=== PATIENT | female | born 1930 | race Caucasian/White ===

== ENCOUNTER 2016-07-21 14:37 | Outpatient (CLI) | payer MEDICARE, OTHER | END 2016-07-21 14:38 | disposition home or self-care (01) | DX: I65.22 Occlusion and stenosis of left carotid artery (principal) ==

== ENCOUNTER 2017-08-23 20:33 | Outpatient (CLI) | payer MEDICARE, OTHER ==
[2017-08-23 19:44] LABS: ALBUMIN 3.9 g/dL (3.2-5.5); ALBUMIN/GLOBULIN RATIO 1.1 (1.0-2.2); ALKALINE PHOSPHATASE 75 IU/L (42-121); ALT ALANINE AMINOTRANSFERASE 27 IU/L (10-60); AST ASPARTATE AMINOTRANSFERASE 34 IU/L (10-42); BILIRUBIN,TOTAL 0.5 mg/dL (0.2-1.0); BUN - BLOOD UREA NITROGEN 19 mg/dL (6-20); CARBON DIOXIDE - CO2 29 mmol/L (21-32); CHLORIDE 101 mmol/L (101-111); CHOL/HDL RATIO 2.3 (<4.4); CHOLESTEROL 97 mg/dL; CREATININE 0.8 mg/dL (0.4-1.0); GFR - MDRD 68 (>89); GLUCOSE 105 mg/dL (70-100); HDL CHOLESTEROL 42 mg/dL; LDL CHOLESTEROL,CALCULATED 41 mg/dL; SODIUM 138 mmol/L (135-145); TOTAL PROTEIN 7.4 g/dL (6.7-8.2); VLDL CHOLESTEROL 14 mg/dL
== END 2017-08-23 20:34 | disposition home or self-care (01) ==
LOC: LAB.WCP 20:33
PROVIDERS: ATTEND Family Medicine
DX: I10 Essential (primary) hypertension (principal); E78.5 Hyperlipidemia, unspecified; E03.9 Hypothyroidism, unspecified
CPT/HCPCS: 36415; 80053; 80061; 83721; 84443

== ENCOUNTER 2017-08-31 15:49 | Outpatient (CLI) | payer MEDICARE, OTHER | END 2017-08-31 15:50 | disposition critical access hospital (66) | LOC: EMS 15:49 | PROVIDERS: ATTEND Surgery | DX: R06.02 Shortness of breath (principal) | CPT/HCPCS: A0425; A0427 ==

== ENCOUNTER 2017-08-31 16:12 | Inpatient (IN) | payer MEDICARE, OTHER ==
--- NOTE | 2017-08-31 16:16 | ED Physician Documentation ---
History of Present Illness - Stated complaint Stated Complaint: AFIB - History obtained from History obtained from: Patient, Family, EMS - History of Present Illness Timing: How many weeks ago (2) - Additonal information Additional information: 87-year-old female has had some shortness of breath for about the past 2 weeks this is much worse today and she came in to see her doctor before going out to the [facility]. Her doctor found her to be in atrial fibrillation with rapid ventricular response and sent her to the hospital for evaluation. Review of Systems Constitutional: denies: Fever Eyes: denies: Decreased vision Ears: denies: Ear pain Nose: denies: Congestion Throat: denies: Sore throat Cardiac: reports: Palpitations. denies: Chest pain / pressure Respiratory: reports: Dyspnea, Cough GI: denies: Abdominal Pain, Nausea, Vomiting : denies: Dysuria, Frequency Skin: denies: Rash Musculoskeletal: reports: Extremity swelling. denies: Neck pain, Back pain, Extremity pain Neurologic: denies: Generalized weakness, Focal weakness, Numbness PD PAST MEDICAL HISTORY - Present Medications Home Medications: Ambulatory Orders Medication Instructions Recorded Confirmed Enalapril [Vasotec] 5 mg PO BID 08/31/17 08/31/17 Furosemide 80 mg PO DAILY 08/31/17 08/31/17 Levothyroxine [Synthroid] 75 mcg PO QDAC 08/31/17 08/31/17 Metoprolol Tartrate 150 mg PO BID 08/31/17 08/31/17 Potassium Chloride 20 meq PO BID 08/31/17 08/31/17 Simvastatin [Simvastatin] 80 mg PO QPM 08/31/17 08/31/17 Warfarin Sodium 4 mg PO DAILY 08/31/17 08/31/17 diltiaZEM CD [Cardizem Cd] 180 mg PO DAILY 08/31/17 08/31/17 - Allergies Allergies/Adverse Reactions: Allergies Allergy/AdvReac Type Severity Reaction Status Date / Time Sulfa (Sulfonamide Allergy Edema Verified 08/31/17 16:23 Antibiotics) PD ED PE NORMAL - Vitals Vital signs reviewed: Yes (tachy ) - General General: Alert and oriented X 3, No acute distress, Well developed/nourished - HEENT HEENT: Atraumatic, PERRL, EOMI - Neck Neck: Supple, no meningeal sign, No bony TTP - Cardiac Cardiac: Other (irregularly irregular and tachy to 150) - Respiratory Respiratory: No respiratory distress, Other (rales at the bases bilaterally ) - Abdomen Abdomen: Soft, Non tender - Back Back: No CVA TTP, No spinal TTP - Derm Derm: Normal color, Warm and dry, No rash - Extremities Extremities: No deformity, Other (trace edema biaterally ) - Neuro Neuro: Alert and oriented X 3, thermometer tester 2-12 intact, No motor deficit, No sensory deficit, Normal speech Eye Opening: Spontaneous Motor: Obeys Commands Verbal: Oriented GCS Score: 15 - Psych Psych: Normal mood, Normal affect Results - Vitals Vitals: Vital Signs - 24 hr 08/31/17 08/31/17 08/31/17 16:15 16:30 16:56 Temperature 36 C L Heart Rate 145 H 133 H 109 H Respiratory 16 20 22 Rate Blood Pressure 128/78 127/111 H 99/60 O2 Saturation 94 93 91 L 08/31/17 08/31/17 08/31/17 17:00 17:30 17:45 Temperature Heart Rate 103 H 111 H 133 H Respiratory 23 23 Rate Blood Pressure 108/70 130/82 H 134/66 H O2 Saturation 94 94 Oxygen O2 Source Room air - EKG (time done) 1621 Rate: Rate (enter#) (149) QRS: Low voltage Other comments: Other comments (RVH) Compare to prior EKG: Old EKG unavailable Computer interpretation: Agree with computer - Labs Labs: Laboratory Tests 08/31/17 08/31/17 08/31/17 16:28 16:28 16:28 WBC 8.3 RBC 4.33 Hgb 12.8 Hct 40.5 MCV 93.5 MCH 29.6 MCHC 31.6 L RDW 15.3 H Plt Count 173 MPV 9.0 Neut # 6.3 Lymph # 1.3 L Richardson # 0.6 Eos # 0.1 Baso # 0.1 Absolute Nucleated RBC 0.00 Nucleated RBC % 0.0 PT 24.6 H INR 2.2 H Sodium 137 Potassium 4.5 Chloride 98 L Carbon Dioxide 25 Anion Gap 14.0 H BUN 18 Creatinine 0.7 Estimated GFR (MDRD) 79 L Glucose 96 Calcium 9.3 Total Bilirubin 0.8 AST 30 ALT 28 Alkaline Phosphatase 81 Troponin I B-Natriuretic Peptide Total Protein 7.3 Albumin 3.9 Globulin 3.4 Albumin/Globulin Ratio 1.1 Lipase 12 L Urine Color Urine Clarity Urine pH Ur Specific Leroy Urine Protein Urine Glucose (UA) Urine Ketones Urine Occult Blood Urine Nitrite Urine Bilirubin Urine Urobilinogen Ur Leukocyte Esterase Urine RBC Urine WBC Ur Epithelial Cells Ur Squamous Epith Cells Urine Bacteria Urine Mucus Ur Microscopic Review Urine Culture Comments 08/31/17 08/31/17 08/31/17 16:28 16:28 18:20 WBC RBC Hgb Hct MCV MCH MCHC RDW Plt Count MPV Neut # Lymph # Richardson # Eos # Baso # Absolute Nucleated RBC Nucleated RBC % PT INR Sodium Potassium Chloride Carbon Dioxide Anion Gap BUN Creatinine Estimated GFR (MDRD) Glucose Calcium Total Bilirubin AST ALT Alkaline Phosphatase Troponin I < 0.04 B-Natriuretic Peptide 202 H Total Protein Albumin Globulin Albumin/Globulin Ratio Lipase Urine Color YELLOW Urine Clarity HAZY Urine pH 6.0 Ur Specific Leroy 1.015 Urine Protein NEGATIVE Urine Glucose (UA) NEGATIVE Urine Ketones NEGATIVE Urine Occult Blood NEGATIVE Urine Nitrite NEGATIVE Urine Bilirubin NEGATIVE Urine Urobilinogen 0.2 (NORMAL) Ur Leukocyte Esterase SMALL H Urine RBC 0-5 Urine WBC 6-10 H Ur Epithelial Cells FEW Renal Tubular Ur Squamous Epith Cells MOD Squamous H Urine Bacteria Moderate H Urine Mucus Few Strands Ur Microscopic Review INDICATED Urine Culture Comments NOT INDICATED - Rads (name of study) 2 view chest Radiology: Prelim report reviewed (Impression: Large heart without CHF or acute pulmonary abnormality.), EMP read indepedently, See rad report Procedures - IVC sono (time) 1635 Bedside IVC sono: IVC measures (cm) (2.65), IVC collapsed c insp (cm) (2.19), Collapsibility index (0.173), High CVP, Fluid overload PD MEDICAL DECISION MAKING - ED course Complexity details: reviewed old records, reviewed results, re-evaluated patient , considered differential, d/w patient, d/w family ED course: 87-year-old female with a history of intermittent atrial fibrillation has developed atrial fibrillation with rapid ventricular response and this appears to been present for as long as 2 weeks. The patient has developed some exertional dyspnea and this is been worse over the last 2 weeks today on evaluation she has heart rate of 149 and she does appear to be in some mild failure on interrogation of the inferior vena cava. Here in the emergency department she is administered diltiazem 20 mg with reduction in her heart rate into the 90s this last a short period of time and she has her heart rate up in the 120 range again is given a second dose of 25 mg this improved her heart rate further but again this is short-lived. She is also administered 80 mg of Lasix intravenously. She has persistent afib with RVR and will need further treatment for rate control. Departure - Departure Disposition: [facility] DC/Xfer Clinical Impression: Atrial fibrillation with RVR Congestive heart failure Qualifiers: Congestive heart failure type: combined Congestive heart failure chronicity: acute on chronic Qualified Code(s): I50.43 - Acute on chronic combined systolic (congestive) and diastolic (congestive) heart failure Condition: Stable
[2017-08-31] MEDS ORDERED: diltiaZEM INJ 5 MG/ML VIAL IVP STA ×2 (16:37→17:39)
[2017-08-31 16:38] LABS: INR 2.2 (0.8-1.2); PT - PROTHROMBIN TIME 24.6 secs (9.9-12.6)
[2017-08-31 16:40] LABS: BASOPHILS # (AUTO) 0.1 10^3/uL (0.0-0.1); BASOPHILS % (AUTO) 0.6 %; EOSINOPHILS # (AUTO) 0.1 10^3/uL (0.0-0.7); EOSINOPHILS % (AUTO) 0.9 %; HGB - HEMOGLOBIN 12.8 g/dL (12.0-16.0); LYMPHOCYTES # (AUTO) 1.3 10^3/uL (1.5-3.5); LYMPHOCYTES % (AUTO) 15.4 %; MEAN CORPUSCULAR HEMOGLOBIN 29.6 pg (27.0-31.0); MEAN CORPUSCULAR HGB CONC 31.6 g/dL (32.0-36.0); MEAN CORPUSCULAR VOLUME 93.5 fL (81.0-99.0); MONOCYTES # (AUTO) 0.6 10^3/uL (0.0-1.0); MONOCYTES % (AUTO) 7.4 %; NEUTROPHILS # (AUTO) 6.3 10^3/uL (1.5-6.6); NEUTROPHILS % (AUTO) 75.7 %; PLT - PLATELET COUNT 173 10^3/uL (130-450); RED BLOOD COUNT 4.33 10^6/uL (4.20-5.40); RED CELL DISTRIBUTION WIDTH 15.3 % (12.0-15.0); WHITE BLOOD COUNT 8.3 x10^3/uL (4.8-10.8)
[2017-08-31] MEDS ORDERED: FUROSEMIDE 100 MG/10 ML VIAL IVP STA (16:41)
[2017-08-31 16:47] LABS: ALBUMIN 3.9 g/dL (3.2-5.5); ALBUMIN/GLOBULIN RATIO 1.1 (1.0-2.2); BILIRUBIN,TOTAL 0.8 mg/dL (0.2-1.0); CALCIUM 9.3 mg/dL (8.5-10.3); CREATININE 0.7 mg/dL (0.4-1.0); TOTAL PROTEIN 7.3 g/dL (6.7-8.2)
--- NOTE | 2017-08-31 17:44 | XRAY Report ---
EXAM: CHEST RADIOGRAPHY EXAM DATE: 08/31/2017 05:29 PM. CLINICAL HISTORY: Bibasilar crackles. COMPARISON: 11/21/2008. TECHNIQUE: 2 views. FINDINGS: Lungs/Pleura: No focal opacities evident. No pleural effusion. No pneumothorax. Normal volumes. Mediastinum: Large heart. Heavily calcified nondilated aortic arch. Other: No compression fractures. IMPRESSION: Large heart without CHF or acute pulmonary abnormality. [facility] Referring Provider Line: [phone] SITE ID: [id number]
[2017-08-31] MEDS ORDERED: FUROSEMIDE INJ 100mg VIAL 80 MG in SODIUM CHLORIDE 0.9% 50 ML IVP ONE (18:00)
[2017-08-31 18:39] LABS: BILIRUBIN,URINE NEGATIVE (NEGATIVE); GLUCOSE, URINE (UA) NEGATIVE (NEGATIVE); KETONES,URINE (UA) NEGATIVE (NEGATIVE); LEUKOCYTE ESTERASE, URINE SMALL (NEGATIVE); NITRITE,URINE NEGATIVE (NEGATIVE); OCCULT BLOOD,URINE NEGATIVE (NEGATIVE); PROTEIN,URINE NEGATIVE (NEGATIVE); UROBILINOGEN,URINE 0.2 (NORMAL) E.U./dL (NORMAL)
[2017-08-31] MEDS ORDERED: TEMAZEPAM 15 MG CAPSULE PO PRN (18:48)
[2017-08-31] MEDS ORDERED: PROCHLORPERAZINE 10 MG/2 ML VIAL IVP PRN (18:48)
[2017-08-31] MEDS ORDERED: oxyCODONE 5 MG TABLET PO PRN (18:48)
[2017-08-31] MEDS ORDERED: DIGOXIN 500 MCG/2 ML AMP IVP SCH (18:56)
[2017-08-31 19:01] LABS: CLARITY,URINE HAZY (CLEAR)
[2017-08-31 19:12] LABS: RBC,URINE 0-5 /HPF (0-5); SQUAMOUS EPITHELIAL CELL,UR MOD Squamous (<= Few)
[2017-08-31 19:13] LABS: BACTERIA,URINE Moderate /HPF (None Seen); MUCUS,URINE Few Strands
[2017-08-31] MEDS: SODIUM CHLORIDE FLUSH 0.9% 10 ML SYRINGE IVP PRN (20:02)
[2017-08-31] MEDS: SODIUM CHLORIDE FLUSH 0.9% 10 ML SYRINGE IVP SCH ×2 (20:02→21:31)
--- NOTE | 2017-08-31 20:26 | HISTORY & PHYSICAL EXAMINATION ---
Chief Complaint - Chief Complaint Chief Complaint: shortness of breath History of Present Illness - Admitted From Admitted From:: ER - History Obtained From [facility] History obtained from: patient and Dr. Gaspar's notes Exam Limitations: none - History of Present Illness HPI Comment/Other: she [place] the [place] and just felt too tires and sob. It's been going of for a couple of weeks. She saw her PCP and was instructed to come to the ER when her chronic afib was found to be too fast. She is sure she is taking her medication. No new changes in meds or health. Per her PCP notes from today: Pt here for yearly follow up and medication review. She has been complaining of dyspnea for the past 2 weeks, resting. She did quit smoking 1.5months ago ( had been smoking since a teen). She attributed her shortness of breath to this. Denies any chest pain. Sleeps in a chair - does not sleep laying back. It was noted that patient had tachycardia to 130s walking into the clinic but improved when she sat down. Hx of A fib - taking digoxin and diltiazem. INR therapeutic today. Pt denies missed doses. She was seen in the ER by Dr. Gaspar and found to be with RVR. Her blood pressure was 108 systolic and now on transfer to the floor she is 130 systolic. She intially responded to diltiazem IV down a rate in the 90's but her rate started coming back up again so brought in for better control. She is sob, denies chest pain. Denies fever. Denies orthopnea, edema. Just more winded doing easy things like dressing and bathing. In reviewing her outpatient records she had an admission to [facility] then transferred to [facility] for the same problem 07/23/14-. She was started on a dilt drip and dig level was low, so IV loaded. Her metoprolol was increased from 100 mg to 150 mg po bid. She was there for 3 days with mild pulmonary edema as a complication of the fast rate. History - Past Medical History Cardiovascular: reports: Congestive heart failure (Diastolic and related to fast heart rate, not systolic. ), Hypertension, High cholesterol, Coronary artery disease, Peripheral Vascular Disease (Carotid stenosis on MRA with occlusion of LICA and L common carotid, and origin of MARYCRUZ with mild to moderate 50-79% stenosis), Deep vein thrombosis (entire left leg 2009), MT, Atrial fibrillation Respiratory: reports: COPD (on LABA and only on O2 at night. was not on it since moved here but she feels she needs it) Neuro: reports: CVA (history of strokes found on incidental MRI's. multiple. 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 ) HEENT: reports: Other (hx of bilateral cataracts with surgery) Psych: reports: None Musculoskeletal: reports: Osteoarthritis (with left hip replacement), Chronic back pain (L/S area. MRI 04/2005 with left paracentral L2-L3 disk protrusion and age related degenerative changes of OA, this is what limits her the most) Derm: reports: Other (cellulitis of forearm from dog bite 05/2015) Other Past Medical History: Was using O2 2L until 9 years ago - Past Surgical History Ortho: reports: Hip replacement (left 2007) HEENT: reports: Cataracts - Family & Social History Family History Comment/Other: Dad at 75 of COPD. Mom at age 89 with unknown heart issues and HTN. 1 brother at 21 when in the . 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 twice and both husbands . She was living in [place] with 4 other: a daughter, daughters partner, daughter in laws mother and her. 2 women in their 60's and 80's. Did NOT work out. Moved here December 2014 to be with one of her sons. He's retired [employer] and lives nearby. She lives in her own apartment. Not lonely. Doesn her own ADL's. She began seeing Dr. Kay 05/2015. she is a 1-2 ppd smoker who quit in 2012 then resumed and quite again last month. No history of IVDA, recreational substance abuse, or alcohol abuse. - Substance History Use: Uses substance without health or social issues: Tobacco Tobacco Details: Cigarettes - POLST Patient has POLST: No POLST Status: she has advanced directive and is DNR, DNI and no tube feeds Meds/Allgy - Home Medications Home Medications: Ambulatory Orders Medication Instructions Recorded Confirmed Enalapril [Vasotec] 5 mg PO BID 08/31/17 08/31/17 Furosemide 80 mg PO DAILY 08/31/17 08/31/17 Levothyroxine [Synthroid] 75 mcg PO QDAC 08/31/17 08/31/17 Metoprolol Tartrate 150 mg PO BID 08/31/17 08/31/17 Potassium Chloride 20 meq PO BID 08/31/17 08/31/17 Simvastatin [Simvastatin] 80 mg PO QPM 08/31/17 08/31/17 Warfarin Sodium 4 mg PO DAILY 08/31/17 08/31/17 diltiaZEM CD [Cardizem Cd] 180 mg PO DAILY 08/31/17 08/31/17 - Allergies Allergies/Adverse Reactions: Allergies Allergy/AdvReac Type Severity Reaction Status Date / Time Sulfa (Sulfonamide Allergy Edema Verified 08/31/17 16:23 Antibiotics) Review of Systems - Constitutional Constitutional: reports: Fatigue, Malaise. denies: Fever, Chills - Eyes Eyes: denies: Pain, Irritation, Amaurosis - Ears, Nose & Throat Ears, Nose & Throat: denies: Ear pain, Tinnitus, Vertigo, Nosebleeds, Nasal obstruction - Cardiovascular Cariovascular: reports: Irregular heart rate, Palpitations, Exertional dyspnea, Decr. exercise tolerance (for about 2 months. She can use a grocery cart to complete one end of [employer] to the other end without stopping but this last 2 weeks it's been really hard.), Other (sleep in a chair chronically). denies: Syncope - Respiratory Respiratory: reports: Cough (occasionally and without change), Sputum production (occasionally and without change), Wheezing (occasionally.), SOB with exertion, Other (heart and lungs don't limit her, it's her back. She wants her night time oxygen back again and she wants to resume her symbicort. She was going to ask Dr. Kay for this today but in the lo of getting to the hospital they never got to her med list.) - Gastrointestinal Gastrointestinal: denies: Abdominal pain, Abdominal distention, Constipation, Diarrhea - Genitourinary Genitourinary: reports: 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 (rarely). denies: Dysuria, Frequency, Urgency, Hematuria - Musculoskeletal Musculoskeletal: reports: Back pain (this is what limits her). denies: Muscle pain, Muscle aches - Integumentary Integumentary: denies: Rash, Pruritis, Lesions - Neurological Neurological: reports: General weakness, Dizziness. denies: Focal weakness, Headache, Numbness, Memory problems, Pre-existing deficit, Seizures, Slurred speech - Psychiatric Psychiatric: denies: Depression, Anxiety, Suicidal - Endocrine Endocrine: denies: Polyuria, Polydypsia - Hematologic/Lymphatic Hematologic/Lymphatic: reports: Blood clots (in the past), Bleeding tendencies ( because on coumadin). denies: Bruising Exam - Vital Signs Reviewed Vital Signs: Yes Vital Signs: Vital Signs x48h Temp Pulse Pulse Resp BP Pulse Ox 08/31/17 20:02 89 08/31/17 19:37 36.2 C L 94 24 130/96 H 97 - Physical Exam General Appearance: positive: No acute distress, Alert, Other (large, overweight well nourished elderly female watching TV and has O2 on. During her exam she has to get up to the bathroom and does so with only standby assist and respiratory rate does go up from 20 to 24. Takes 1-2 minutes to stabilized again at rest.) Eyes Bilateral: positive: PERRL, EOMI ENT: positive: Pharynx nml Neck: positive: No JVD, Carotid bruit. negative: Stiff neck Respiratory: positive: Chest non-tender, No respiratory distress, Rhonchi (one in left lung.), Other (she says she is much better than when she was in ER.). negative: Wheezes (but prolonged end exhalation.) Cardiovascular: positive: Irregularly irregular, Tachycardia, Systolic murmur. negative: Gallop/S4, Friction rub Peripheral Pulses: positive: 1+ Abdomen: positive: Non-tender, No organomegaly, Nml bowel sounds, No distention , Other (large, large panus) Skin: positive: Warm, Dry Extremities: positive: Pedal edema (1+ in both legs, she wants me to take off the SCD's), Other (large arms and legs, not edema large, just large) Neurologic/Psychiatric: positive: Oriented x3, CN's nml (2-12), Motor nml, Sensation nml. negative: Slurred/abnml speech, Depressed mood/affect Conclusion/Plan - Problem List (1) Atrial fibrillation with RVR Conclusion/Plan: of long duration. already on rate control meds and is compliant so unclear as to why rate came up. Plan: increase metoprolol form 150 bid to 200 bid dig load with 0.25 q6h x 4 increase diltiazem from 180 to 240. (2) Acute diastolic (congestive) heart failure Conclusion/Plan: from afib with RVR. In reviewing her records, no ECHO recently. margareth has received lasix in the ER with good response. Plan: no more lasix for now. concentrate on slowing her rate. ECHO. (3) COPD (chronic obstructive pulmonary disease) Conclusion/Plan: she wants her LABA resumed at discharge and was looking to get an RX from Dr. Kay. I will make sure our team given her the Symbicort she wants. I will also assess her for O2 needs at home. She feels she has needed it for a while. Qualifiers: COPD type: emphysema Emphysema type: unspecified Qualified Code(s): J43.9 - Emphysema, unspecified (4) Hypothyroid Conclusion/Plan: check TSH Qualifiers: Hypothyroidism type: unspecified Qualified Code(s): E03.9 - Hypothyroidism , unspecified (5) Carotid stenosis, right Conclusion/Plan: with totally occluded left. She understands ramifications of smoking. tried to stop in the past. did so again 1.5 mnths ago. other risk factor management of control of BP and cholesterol continues. (6) History of deep vein thrombosis (DVT) of lower extremity Conclusion/Plan: she is already on coumadin and is with an INR fo 2.2. She hates the SCD's. will dc. (7) DNR (do not resuscitate) Conclusion/Plan: she gave me a cope of her durable power of health care attorney. I have copied them and given them to the [facility] for scanning into the chart. Original back to the patient. - Lab Results Lab results reviewed: Yes Fish Bones: 08/31/17 16:28 08/31/17 16:28 - Diagnostic Imaging Results Diagnostic Imaging Results: positive: Final report reviewed Diagnostic Imaging Results Comments: CXR with large heart and no acute cardiopulmonary abnormality. - EKG Results EKG Interpreted Independently: No EKG Comparison: No prior EKG Core Measures - Anticipated LOS I expect patient to be DC'd or transferred within 96 hours.: Yes - DVT/VTE - Prophylaxis VTE/DVT Device ordered at admit?: Yes
[2017-08-31] MEDS ORDERED: NON FORMULARY MED (Simvastatin [Simvastatin] 80 MG) PO SCH (21:00)
[2017-08-31] MEDS: METOPROLOL TARTRATE 50 MG TABLET PO SCH (21:29)
[2017-08-31] MEDS: ATORVASTATIN 40 MG TABLET PO SCH (21:29)
[2017-08-31] MEDS: ENALAPRIL 5 MG TABLET PO SCH (21:30)
[2017-08-31] MEDS: POTASSIUM CHLORIDE 10 MEQ CAPSULE PO SCH (21:30)
[2017-09-01] MEDS ORDERED: DIGOXIN 500 MCG/2 ML AMP IVP SCH ×2 (02:00→08:00)
[2017-09-01] MEDS: SODIUM CHLORIDE FLUSH 0.9% 10 ML SYRINGE IVP SCH ×3 (06:39→21:00)
[2017-09-01] MEDS: LEVOTHYROXINE 75 MCG TABLET PO SCH (06:39)
[2017-09-01] MEDS: POTASSIUM CHLORIDE 10 MEQ CAPSULE PO SCH ×2 (08:14→20:59)
[2017-09-01] MEDS: POLYETHYLENE GLYCOL 3350 17 GM PACKET PO SCH (08:14)
[2017-09-01] MEDS: FUROSEMIDE 40 MG TABLET PO SCH (08:14)
[2017-09-01] MEDS: diltiaZEM CD 240 MG CAPSULE PO SCH ×2 (08:49→11:54)
[2017-09-01] MEDS: ENALAPRIL 5 MG TABLET PO SCH ×2 (08:49→20:59)
[2017-09-01] MEDS: METOPROLOL TARTRATE 50 MG TABLET PO SCH (08:50)
[2017-09-01] MEDS: SODIUM CHLORIDE FLUSH 0.9% 10 ML SYRINGE IVP PRN (08:51)
[2017-09-01] MEDS ORDERED: diltiaZEM CD 180 MG CAPSULE PO SCH (09:00)
[2017-09-01] MEDS: WARFARIN 1 MG TABLET PO SCH (14:19)
[2017-09-01] MEDS ORDERED: METOPROLOL TARTRATE 50 MG TABLET PO SCH (15:42)
--- NOTE | 2017-09-01 15:47 | PROVIDER PROGRESS NOTE ---
Subjective - Prog Note Date Prog Note Date: 09/01/17 Prog Note Time: 15:46 - Subjective Pt reports feeling: No change Subjective: Miguelangel has no complaints and denies shortness of breath, chest pain or pressure, N /V or a new cough. 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 Current Medications - Current Medications Current Medications: Active Medications Atorvastatin Calcium (Lipitor) 40 mg PO QPM [facility] Last Admin: 09/01/17 20:59 Dose: 40 mg Enalapril Maleate (Vasotec) 5 mg PO BID [facility] Last Admin: 09/02/17 09:01 Dose: 5 mg Furosemide (Lasix) 80 mg PO DAILY [facility] Last Admin: 09/02/17 09:12 Dose: 80 mg Levothyroxine Sodium (Synthroid) 75 mcg PO QDAC [facility] Last Admin: 09/02/17 07:01 Dose: 75 mcg Metoprolol Tartrate (Lopressor) 100 mg PO BID [facility] Last Admin: 09/02/17 11:44 Dose: 100 mg Oxycodone HCl (Roxicodone) 5 mg PO Q4HR PRN PRN Reason: Pain 5 to 7 Polyethylene Glycol (Miralax) 17 gm PO DAILY [facility] Last Admin: 09/02/17 09:01 Dose: Not Given Potassium Chloride (Micro-K) 20 meq PO BID [facility] Last Admin: 09/02/17 09:01 Dose: 20 meq Prochlorperazine Edisylate (Compazine Inj) 10 mg IVP Q6HR PRN PRN Reason: Nausea / Vomiting Sodium Chloride (Normal Saline Flush 0.9%) 10 ml IVP PRN PRN PRN Reason: NEEDED PER PROVIDER ORDERS Last Admin: 09/02/17 07:01 Dose: 10 ml Sodium Chloride (Normal Saline Flush 0.9%) 10 ml IVP Q8HR [facility] Last Admin: 09/02/17 11:45 Dose: 10 ml Temazepam (Restoril) 15 mg PO QPM PRN PRN Reason: Insomnia Warfarin Sodium (Coumadin) 4 mg PO QDWARFARIN [facility] Last Admin: 09/02/17 13:23 Dose: 4 mg Enalapril [Vasotec] 5 mg PO BID 08/31/17 Furosemide 80 mg PO DAILY 08/31/17 Levothyroxine [Synthroid] 75 mcg PO QDAC 08/31/17 Metoprolol Tartrate 150 mg PO BID 08/31/17 Potassium Chloride 20 meq PO BID 08/31/17 Simvastatin 80 mg PO QPM 08/31/17 Warfarin Sodium 4 mg PO DAILY 08/31/17 diltiaZEM CD [Cardizem Cd] 180 mg PO DAILY 08/31/17 Objective - Vital Signs/Intake & Output Reviewed Vital Signs: Yes Vital Signs: Vital Signs x48h Temp Pulse Pulse Resp BP BP Pulse Ox 09/01/17 13:00 36.4 C L 64 20 105/58 L 97 09/01/17 08:53 36.0 C L 66 20 129/79 100 09/01/17 08:51 105 H 09/01/17 08:50 129/79 09/01/17 08:15 95 Intake & Output: Intake & Output 08/29/17 08/30/17 08/31/17 09/01/17 23:59 23:59 23:59 23:59 Intake Total 318 710 Output Total 1750 1200 Balance -1432 -490 - Objective General Appearance: positive: No acute distress, Alert Eyes Bilateral: positive: Normal inspection, PERRL ENT: positive: ENT inspection nml, Pharynx nml, No signs of dehydration Neck: positive: Nml inspection, Thyroid nml, No JVD, Trachea midline Respiratory: positive: Chest non-tender, No respiratory distress, Wheezes, Rhonchi Cardiovascular: positive: No gallop, Irregularly irregular, Tachycardia, Bradycardia, Systolic murmur, Decreased pulse(s) Peripheral Pulses: 1+ Radial (R), 1+ Radial (L) Abdomen: positive: Non-tender, No organomegaly, Nml bowel sounds, No distention , Other (rounded, soft.) Back: positive: Nml inspection Skin: positive: No rash, Warm, Dry Extremities: positive: Non-tender, Full ROM, Nml appearance, Pedal edema Neurologic/Psychiatric: positive: Oriented x3, CN's nml (2-12), Motor nml, Sensation nml, Depressed mood/affect Reflexes: Bicep (R): 2+, Bicep (L): 2+ - Lab Results Fish Bones: 09/03/17 05:20 09/03/17 05:20 Other Labs: Lab Results x24hrs 09/01/17 Range/Units 05:34 TSH 4.34 (0.34-5.60) uIU/mL - Diagnostic Imaging Diagnostic Imaging Results: positive: Final report reviewed Assessment/Plan - Problem List (1) Acute diastolic (congestive) heart failure Impression: Patient has an EF of 55-60% and a right heart pressure of 51mmHg, obtained on this admission. She is on the usual recommended treatment including metoprolol , ALFREDO and diuretic. Plan: Titrate medications to maintain fluid balance. (2) Atrial fibrillation with RVR Impression: Patient had a heart rate of 55-158, and 2-3.31 second pauses. Cardiology was called who suggests a transfer, although there have been no open beds at nearby facilities. Plan: D/C digoxin, and titrate beta glenna, and Calcium channel glenna to maintain heart rates less than 100, being mindful of potential pauses. (3) COPD (chronic obstructive pulmonary disease) Impression: Patient has required oxygen while in the hospital. She denies home oxygen use. Plan: supplemental oxygen and nebulizers per RT. Qualifiers: COPD type: emphysema Emphysema type: unspecified Qualified Code(s): J43.9 - Emphysema, unspecified (4) Hypothyroid Impression: A TSH was checked and it is normal range at 4.34. Plan: She will continue on her home dose of Synthroid. Qualifiers: Hypothyroidism type: unspecified Qualified Code(s): E03.9 - Hypothyroidism , unspecified
--- NOTE | 2017-09-01 17:53 | DISCHARGE SUMMARY ---
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 Atrial fibrillation with RVR (I48.91) chronic, uncontrolled, now with pauses. Acute diastolic heart failure (I50.31) ongoing, lasix resumed. COPD (chronic obstructive pulmonary disease) (J44.9) chronic, stable, 1L nasal cannula oxygen. Hypothyroid (E03.9) chronic, stable. 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 History of DVT (deep vein thrombosis) (Z86.718) chronic, stable, fully anticoagulated. - HPI History of Present Illness: HPI per Dr. Halle Light: Miguelangel Conner is an obese 87-year old male with a past medical history of diastolic CHF, HTN, hyperlipidemia, CAD, PVD, carotid stenosis on MRA w/ occlusion of LICA and L common carotid, MARYCRUZ w/mild to moderate 50-70% stenosis , DVT-entire LLE in 2009, [place], chronic a-fib, COPD, CVA-found incidentally on MRI 's-multiple, hypothyroidism, stress incontinence, bilateral cataracts, osteoarthritis, and chronic back pain. She arrived in our ED today and stated that she [place] and just felt too tired and short of breath, which has been going on for a couple of weeks. She saw her PCP and was instructed to come to the ER when her chronic afib was found to be too fast. She is sure she is taking her medication as directed. No new changes in meds or health. Per her PCP notes from today: Pt here for yearly follow up and medication review. She has been complaining of dyspnea for the past 2 weeks, resting. She did quit smoking 1.5months ago ( had been smoking since a teen). She attributed her shortness of breath to this. Denies any chest pain. Sleeps in a chair - does not sleep laying back. It was noted that patient had tachycardia to 130s walking into the clinic but improved when she sat down. Hx of A fib - taking digoxin and diltiazem. INR therapeutic today. Pt denies missed doses. She was seen in the ER by Dr. Gaspar and found to be with RVR. Her blood pressure was 108 systolic and now on transfer to the floor she is 130 systolic. She intially responded to diltiazem IV down a rate in the 90's but her rate started coming back up again so brought in for better control. She is sob, denies chest pain. Denies fever. Denies orthopnea, edema. Just more winded doing easy things like dressing and bathing. In reviewing her outpatient records she had an admission to [facility] then transferred to [facility] for the same problem 07/23/14-. She was started on a dilt drip and dig level was low, so IV loaded. Her metoprolol was increased from 100 mg to 150 mg po bid. She was there for 3 days with mild pulmonary edema as a complication of the fast rate. She will be admitted for further work up and rate control. - HOSPITAL COURSE Hospital Course: The following diagnoses were prevalent during this hospital stay: (1) Acute diastolic (congestive) heart failure- Patient has an EF of 55-60% and a right heart pressure of 51mmHg, obtained on this admission. She is on the usual recommended treatment including metoprolol, ALFREDO and diuretic. Medications were titrated to maintain fluid balance. (2) Atrial fibrillation with RVR- Patient had a heart rate of 55-158, and 2- 3.31 second pauses. Cardiology was called who suggests a transfer, although there have been no open beds at nearby facilities. Digoxin was given , and titrate beta glenna, and Calcium channel glenna to maintain heart rates less than 100, being mindful of potential pauses. (3) COPD (chronic obstructive pulmonary disease)- Patient has required oxygen while in the hospital. She denies home oxygen use, although wakes up a few times each night feeling breathless. This is followed by a fear of falling back asleep. She notes that she could really use the oxygen at night or when she has to walk any distance. Patient was continued on supplemental oxygen and nebulizers per RT while she was in the hospital. (4) Hypothyroid- A TSH was checked and it is in normal range at 4.34. She will continue on her home dose of Synthroid. (5) Hypoxia- Patient had a primary complaint of shortness of breath when she presented to the ED. She has required oxygen for her entire hospital stay. A [id number] exam was completed and plans to continue oxygen for home use was discussed with the patient prior to discharge. Discussion included walking oxygen test results, of an oxygen saturation of 88% on room air while ambulating in the mahajan and oxygen improved to 93% after placing 1L of oxygen per nasal cannula. Patient was noted to have an oxygen saturation of 96% without activity. With exertion, on 1L nasal cannula her saturation was 93% while ambulating 50 feet. I have ordered home oxygen at 1L nasal cannula to be administered with ambulation to prevent hypoxia. Disposition: Patient was transported home via private car and home oxygen. A new type of medication was sent to her pharmacy of choice. - ALLERGIES Allergies/Adverse Reactions: Allergies Allergy/AdvReac Type Severity Reaction Status Date / Time Sulfa (Sulfonamide Allergy Edema Verified 08/31/17 16:23 Antibiotics) - MEDICATIONS Home Medications: Ambulatory Orders Medication Instructions Recorded Confirmed Enalapril [Vasotec] 5 mg PO BID 08/31/17 08/31/17 Furosemide 80 mg PO DAILY 08/31/17 08/31/17 Levothyroxine [Synthroid] 75 mcg PO QDAC 08/31/17 08/31/17 Potassium Chloride 20 meq PO BID 08/31/17 08/31/17 Simvastatin 80 mg PO QPM 08/31/17 08/31/17 Warfarin Sodium 4 mg PO DAILY 08/31/17 08/31/17 diltiaZEM CD [Cardizem Cd] 180 mg PO DAILY 08/31/17 08/31/17 Metoprolol Succinate [Toprol Xl] 100 mg PO BID #60 tablet 09/03/17 - PHYSICAL EXAM AT DISCHARGE General Appearance: positive: No acute distress, Alert Eyes Bilateral: positive: Normal inspection, PERRL ENT: positive: ENT inspection nml, Pharynx nml, Dry mucous membranes Neck: positive: Nml inspection, Thyroid nml, No JVD Respiratory: positive: Chest non-tender, No respiratory distress, Breath sounds nml, Wheezes, Rhonchi Cardiovascular: positive: No gallop, Tachycardia, Bradycardia, Systolic murmur, Decreased pulse(s) Peripheral Pulses: positive: 1+ Abdomen: positive: Non-tender, No organomegaly, Nml bowel sounds, No distention Back: positive: Nml inspection Skin: positive: No rash, Warm, Dry Extremities: positive: Non-tender, Full ROM, Nml appearance, Pedal edema Neurologic/Psychiatric: positive: Oriented x3, CN's nml (2-12), Motor nml, Sensation nml, Weakness, Depressed mood/affect Reflexes: Bicep (R): 2+, Bicep (L): 2+ - LABS Result Diagrams: 09/03/17 05:20 09/03/17 05:20 - DIAGNOSTIC IMAGING Diagnostic Imaging Results: Final report reviewed Diagnostic Imaging Results Comments: EXAM: CHEST RADIOGRAPHY EXAM DATE: 08/31/2017 05:29 PM. CLINICAL HISTORY: Bibasilar crackles. COMPARISON: 11/21/2008. TECHNIQUE: 2 views. FINDINGS: Lungs/Pleura: No focal opacities evident. No pleural effusion. No pneumothorax. Normal volumes. Mediastinum: Large heart. Heavily calcified nondilated aortic arch. Other: No compression fractures. IMPRESSION: Large heart without CHF or acute pulmonary abnormality. - FOLLOW UP Follow Up: Disposition: 01 Home, Self Care Condition: Good Prescriptions: Metoprolol Succinate [Toprol Xl] 100 mg PO BID #60 tablet Diet: Cardiac Activity Restrictions: No Restrictions Shower Restrictions: No Driving Restrictions: No Weight Bearing: Full Weight Additional Instructions or Follow Up instructions: You were admitted for atrial fibrillation that was causing you to become more short of breath. We found that you were having pauses with the highest pause was 3.31. You seemed not to notice this and your vital signs were normal. We made several (at least 8 attempts to move you to another facility). You may have been having the pauses due to being on a higher than recommended beta glenna, so this amount has been reduced. A urine sample was obtained and did not show infection, so antibiotics were started. You also needed oxygen for your shortness of breath, so a walking oxygen test was ordered and you will likely need oxygen at home. Please see your PCP within one week as a follow up to this stay. 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 - TIME SPENT Time Spent in Discharge (Minutes): 45
[2017-09-01] MEDS: ATORVASTATIN 40 MG TABLET PO SCH (20:59)
[2017-09-02] MEDS: LEVOTHYROXINE 75 MCG TABLET PO SCH (07:01)
[2017-09-02] MEDS: SODIUM CHLORIDE FLUSH 0.9% 10 ML SYRINGE IVP PRN (07:01)
[2017-09-02] MEDS: ENALAPRIL 5 MG TABLET PO SCH ×2 (09:01→21:38)
[2017-09-02] MEDS: POLYETHYLENE GLYCOL 3350 17 GM PACKET PO SCH (09:01)
[2017-09-02] MEDS: POTASSIUM CHLORIDE 10 MEQ CAPSULE PO SCH ×2 (09:01→21:37)
[2017-09-02] MEDS: FUROSEMIDE 40 MG TABLET PO SCH (09:12)
[2017-09-02] MEDS ORDERED: DIGOXIN 500 MCG/2 ML AMP IVP SCH (10:55)
[2017-09-02] MEDS: METOPROLOL TARTRATE 50 MG TABLET PO SCH ×2 (11:44→21:37)
[2017-09-02] MEDS: SODIUM CHLORIDE FLUSH 0.9% 10 ML SYRINGE IVP SCH ×2 (11:45→21:38)
[2017-09-02] MEDS: WARFARIN 1 MG TABLET PO SCH (13:23)
--- NOTE | 2017-09-02 15:06 | PROVIDER PROGRESS NOTE ---
Subjective - Subjective Pt reports feeling: Improved Current Medications - Current Medications Current Medications: Enalapril [Vasotec] 5 mg PO BID 08/31/17 Furosemide 80 mg PO DAILY 08/31/17 Levothyroxine [Synthroid] 75 mcg PO QDAC 08/31/17 Potassium Chloride 20 meq PO BID 08/31/17 Simvastatin 80 mg PO QPM 08/31/17 Warfarin Sodium 4 mg PO DAILY 08/31/17 diltiaZEM CD [Cardizem Cd] 180 mg PO DAILY 08/31/17 Objective - Vital Signs/Intake & Output Reviewed Vital Signs: Yes Vital Signs: Vital Signs x48h Temp Pulse Pulse Resp BP BP Pulse Ox 09/02/17 12:24 35.9 C L 76 20 114/80 99 09/02/17 11:44 104 H 114/80 09/02/17 08:47 35.9 C L 146 H 18 129/67 96 Intake & Output: Intake & Output 08/30/17 08/31/17 09/01/17 09/02/17 23:59 23:59 23:59 23:59 Intake Total 318 1110 1110 Output Total 1750 2100 1550 Balance -1432 -990 -440 - Objective General Appearance: positive: No acute distress, Alert ENT: positive: ENT inspection nml, Pharynx nml, No signs of dehydration Neck: positive: Nml inspection, Thyroid nml Respiratory: positive: Chest non-tender, Wheezes, Rhonchi Cardiovascular: positive: No gallop, Irregularly irregular, Systolic murmur, Decreased pulse(s) Peripheral Pulses: 1+ Radial (R), 1+ Radial (L) Abdomen: positive: Non-tender, Nml bowel sounds Back: positive: Nml inspection Skin: positive: No rash, Warm, Dry, Cyanosis Extremities: positive: Non-tender, Full ROM, Pedal edema, Joint swelling Neurologic/Psychiatric: positive: Oriented x3, CN's nml (2-12), Motor nml, Depressed mood/affect Reflexes: Bicep (R): 2+, Bicep (L): 2+ - Lab Results Fish Bones: 09/03/17 05:20 09/03/17 05:20 - Diagnostic Imaging Diagnostic Imaging Results: positive: Final report reviewed Assessment/Plan - Problem List (1) Acute diastolic (congestive) heart failure Impression: Patient has an EF of 55-60% and a right heart pressure of 51mmHg, obtained on this admission. She is on the usual recommended treatment including metoprolol , ALFREDO and diuretic. Plan: Titrate medications to maintain fluid balance. (2) COPD (chronic obstructive pulmonary disease) Impression: Patient has required oxygen while in the hospital. She denies home oxygen use. Plan: supplemental oxygen and nebulizers per RT. Qualifiers: COPD type: emphysema Emphysema type: unspecified Qualified Code(s): J43.9 - Emphysema, unspecified (3) Hypothyroid Impression: A TSH was checked and it is normal range at 4.34. Plan: She will continue on her home dose of Synthroid. Qualifiers: Hypothyroidism type: unspecified Qualified Code(s): E03.9 - Hypothyroidism , unspecified (4) Atrial fibrillation with RVR Impression: Patient had a heart rate of 55-158, and 2-3.31 second pauses. Cardiology was called who suggests a transfer, although there have been no open beds at nearby facilities. Plan: D/C digoxin, and titrate beta glenna, and Calcium channel glenna to maintain heart rates less than 100, being mindful of potential pauses.
[2017-09-02] MEDS: ATORVASTATIN 40 MG TABLET PO SCH (21:37)
[2017-09-03 06:07] LABS: BASOPHILS % (AUTO) 0.3 %; EOSINOPHILS # (AUTO) 0.1 10^3/uL (0.0-0.7); HGB - HEMOGLOBIN 12.5 g/dL (12.0-16.0); LYMPHOCYTES # (AUTO) 1.2 10^3/uL (1.5-3.5); LYMPHOCYTES % (AUTO) 17.5 %; MEAN CORPUSCULAR HEMOGLOBIN 29.7 pg (27.0-31.0); MEAN CORPUSCULAR VOLUME 92.8 fL (81.0-99.0); MEAN PLATELET VOLUME 8.7 fL (7.9-10.8); MONOCYTES # (AUTO) 0.8 10^3/uL (0.0-1.0); MONOCYTES % (AUTO) 11.9 %; NEUTROPHILS # (AUTO) 4.8 10^3/uL (1.5-6.6); NEUTROPHILS % (AUTO) 68.3 %; PLT - PLATELET COUNT 183 10^3/uL (130-450); RED BLOOD COUNT 4.23 10^6/uL (4.20-5.40); RED CELL DISTRIBUTION WIDTH 15.1 % (12.0-15.0); WHITE BLOOD COUNT 7.1 x10^3/uL (4.8-10.8)
[2017-09-03 06:25] LABS: ALBUMIN 3.5 g/dL (3.2-5.5); ALBUMIN/GLOBULIN RATIO 1.2 (1.0-2.2); BILIRUBIN,TOTAL 0.9 mg/dL (0.2-1.0); CREATININE 0.8 mg/dL (0.4-1.0); TOTAL PROTEIN 6.5 g/dL (6.7-8.2)
[2017-09-03] MEDS: LEVOTHYROXINE 75 MCG TABLET PO SCH (06:28)
[2017-09-03] MEDS: SODIUM CHLORIDE FLUSH 0.9% 10 ML SYRINGE IVP SCH ×2 (06:28→14:17)
[2017-09-03 06:35] LABS: INR 2.4 (0.8-1.2); PT - PROTHROMBIN TIME 26.4 secs (9.9-12.6)
[2017-09-03] MEDS ORDERED: diltiaZEM CD 180 MG CAPSULE PO SCH (07:00)
[2017-09-03] MEDS: POLYETHYLENE GLYCOL 3350 17 GM PACKET PO SCH (08:26)
[2017-09-03] MEDS: ENALAPRIL 5 MG TABLET PO SCH (08:28)
[2017-09-03] MEDS: POTASSIUM CHLORIDE 10 MEQ CAPSULE PO SCH (08:28)
[2017-09-03] MEDS: FUROSEMIDE 40 MG TABLET PO SCH (08:28)
[2017-09-03] MEDS ORDERED: METOPROLOL SUCCINATE 50 MG TABLET PO SCH (09:00)
[2017-09-03] MEDS: WARFARIN 1 MG TABLET PO SCH (14:18)
[2017-09-03 14:27] VITALS: BP 114/68
== END 2017-09-03 16:43 | disposition home or self-care (01) | DRG 308 ==
LOC: ED 16:12 → MS2 18:48
PROVIDERS: ADMIT Hospitalist; ATTEND Nurse Practitioner
DX: I48.91 Unspecified atrial fibrillation (principal); I50.43 Acute on chronic combined systolic (congestive) and diastolic (congestive) heart failure; I48.2 Chronic atrial fibrillation; I50.31 Acute diastolic (congestive) heart failure; I49.5 Sick sinus syndrome; I11.0 Hypertensive heart disease with heart failure; J44.9 Chronic obstructive pulmonary disease, unspecified; E03.9 Hypothyroidism, unspecified; I65.21 Occlusion and stenosis of right carotid artery; E78.5 Hyperlipidemia, unspecified; I25.10 Atherosclerotic heart disease of native coronary artery without angina pectoris; I73.9 Peripheral vascular disease, unspecified; N39.3 Stress incontinence (female) (male); M19.90 Unspecified osteoarthritis, unspecified site; G89.29 Other chronic pain; M54.9 Dorsalgia, unspecified; R09.02 Hypoxemia; Z66 Do not resuscitate; Z99.81 Dependence on supplemental oxygen; Z79.01 Long term (current) use of anticoagulants; Z79.899 Other long term (current) drug therapy; Z86.73 Personal history of transient ischemic attack (TIA), and cerebral infarction without residual deficits; Z87.891 Personal history of nicotine dependence; Z86.718 Personal history of other venous thrombosis and embolism; I25.2 Old myocardial infarction
CPT/HCPCS: 36415; 71046; 80053; 81001; 81003; 83690; 83880; 84443; 84484; 85025; 85610; 87086; 93005; 93306; 94761; 96374; 96375; 96376; 99284; 99285

== ENCOUNTER 2017-09-16 12:38 | Outpatient (CLI) | payer MEDICARE, OTHER | END 2017-09-16 12:39 | disposition home or self-care (01) | LOC: DI 12:38 | PROVIDERS: ATTEND Family Medicine | DX: Z53.9 Procedure and treatment not carried out, unspecified reason (principal) ==

== ENCOUNTER 2017-12-25 13:30 | Inpatient (IN) | payer MEDICARE, OTHER ==
[2017-12-25] MEDS ORDERED: methylPREDNISolone SUCCINATE 40 MG/ML VIAL IVP STA (13:47)
[2017-12-25] MEDS ORDERED: IPRATROPIUM/ALBUTEROL 3 ML NEB INH STA ×2 (13:47→14:22)
[2017-12-25 13:56] LABS: BASOPHILS % (AUTO) 0.5 %; EOSINOPHILS # (AUTO) 0.1 10^3/uL (0.0-0.7); EOSINOPHILS % (AUTO) 0.8 %; HGB - HEMOGLOBIN 12.2 g/dL (12.0-16.0); LYMPHOCYTES % (AUTO) 11.2 %; MEAN CORPUSCULAR HEMOGLOBIN 30.9 pg (27.0-31.0); MEAN CORPUSCULAR HGB CONC 32.5 g/dL (32.0-36.0); MEAN CORPUSCULAR VOLUME 95.3 fL (81.0-99.0); MEAN PLATELET VOLUME 8.5 fL (7.9-10.8); MONOCYTES # (AUTO) 0.8 10^3/uL (0.0-1.0); MONOCYTES % (AUTO) 9.1 %; NEUTROPHILS # (AUTO) 6.9 10^3/uL (1.5-6.6); NEUTROPHILS % (AUTO) 78.4 %; PLT - PLATELET COUNT 189 10^3/uL (130-450); RED BLOOD COUNT 3.93 10^6/uL (4.20-5.40); RED CELL DISTRIBUTION WIDTH 15.5 % (12.0-15.0); WHITE BLOOD COUNT 8.8 x10^3/uL (4.8-10.8)
--- NOTE | 2017-12-25 14:00 | ED Physician Documentation ---
PD HPI DYSPNEA - Stated complaint Stated Complaint: SOA - Chief complaint Chief Complaint: Resp - History obtained from History obtained from: Patient - History of Present Illness Pain level max: 0 Pain level now: 0 Inciting event(s): URI Improved by: O2, Inhaler/neb Worsened by: Exertion - Additional information Additional information: Patient is an 87-year-old female who presents to the emergency department with coughing, congestion and difficulty breathing for the past few days. Worsening today. States uses her albuterol twice daily. Also uses her Symbicort once at night. She denies any fevers or chills. She has used oxygen in the past, but is now requiring oxygen 24/. Patient also states that she is chronically in atrial fibrillation. Has not taken her medications at home. The shortness of breath is better with rest and worse with exertion. Review of Systems Ten Systems: 10 systems reviewed and negative Constitutional: denies: Fever, Chills Nose: reports: Rhinorrhea / runny nose, Congestion Throat: denies: Sore throat Cardiac: denies: Chest pain / pressure Respiratory: reports: Dyspnea, Cough, Wheezing GI: denies: Abdominal Pain, Nausea, Vomiting, Diarrhea Skin: denies: Rash Musculoskeletal: denies: Neck pain, Back pain Neurologic: denies: Headache PD PAST MEDICAL HISTORY - Past Medical History Past Medical History: Yes Cardiovascular: Congestive heart failure, Hypertension, High cholesterol, Coronary artery disease, Peripheral Vascular Disease, Deep vein thrombosis, [place], Atrial fibrillation Respiratory: COPD Endocrine/Autoimmune: HyPOthyroidism GI: None 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 : 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 HEENT: Other Psych: None Musculoskeletal: Osteoarthritis, Chronic back pain Derm: Other Other Past Medical History: home O2 at night - Past Surgical History Past Surgical History: No Ortho: Hip replacement HEENT: Cataracts - Present Medications Home Medications: Ambulatory Orders Medication Instructions Recorded Confirmed Enalapril [Vasotec] 5 mg PO BID 08/31/17 12/25/17 Furosemide 80 mg PO DAILY 08/31/17 12/25/17 Levothyroxine [Synthroid] 75 mcg PO QDAC 08/31/17 12/25/17 Potassium Chloride 20 meq PO BID 08/31/17 12/25/17 diltiaZEM CD [Cardizem Cd] 180 mg PO DAILY 08/31/17 12/25/17 Albuterol Sulf [Ventolin Hfa 2 puffs INH Q4H PRN 12/25/17 12/25/17 Inhaler] Atorvastatin Calcium 40 mg PO QPM 12/25/17 12/25/17 Metoprolol Tartrate [Metoprolol 150 mg PO BID 12/25/17 12/25/17 Tartrate] Warfarin Sodium [Coumadin] 4 mg PO DAILY 12/25/17 12/25/17 - Allergies Allergies/Adverse Reactions: Allergies Allergy/AdvReac Type Severity Reaction Status Date / Time Sulfa (Sulfonamide Allergy Edema Verified 08/31/17 16:23 Antibiotics) - Social History Does the pt smoke?: No Smoking Status: Former smoker - POLST Patient has POLST: No POLST Status: she has advanced directive and is DNR, DNI and no tube feeds PD ED PE NORMAL - Vitals Vital signs reviewed: Yes - General General: Alert and oriented X 3 - HEENT HEENT: PERRL, Ears normal, Moist mucous membranes, Pharynx benign - Neck Neck: Supple, no meningeal sign - Cardiac Cardiac: Other (Irregular, tachycardic) - Respiratory Respiratory: No respiratory distress, Other (Diffuse wheezing bilaterally) - Abdomen Abdomen: Soft, Non tender, Non distended - Derm Derm: Warm and dry - Extremities Extremities: Other (2+ bilateral lower extremity pitting edema) - Neuro Neuro: Alert and oriented X 3 Results - Vitals Vitals: Vital Signs - 24 hr 12/25/17 12/25/17 12/25/17 13:37 13:44 14:02 Temperature 36.2 C L Heart Rate 126 H 120 H Respiratory 24 22 Rate Blood Pressure 133/101 H O2 Saturation 87 L 97 12/25/17 12/25/17 14:52 15:06 Temperature 36.2 C L Heart Rate 121 H 120 H Respiratory 20 25 H Rate Blood Pressure 149/111 H O2 Saturation 96 Oxygen O2 Source Nasal cannula Oxygen Flow Rate 2 - EKG (time done) 1347 Rate: Rate (enter#) (117) Rhythm: Atrial fibrillation (w/ RVR) [place]: Normal QRS: Normal Ischemia: Non specific changes Compare to prior EKG: Unchanged from prior EKG (08/31/17) - Labs Labs: Laboratory Tests 12/25/17 12/25/17 12/25/17 13:45 13:45 13:45 WBC 8.8 RBC 3.93 L Hgb 12.2 Hct 37.4 MCV 95.3 MCH 30.9 MCHC 32.5 RDW 15.5 H Plt Count 189 MPV 8.5 Neut # (Auto) 6.9 H Lymph # (Auto) 1.0 L [place] # (Auto) 0.8 Eos # (Auto) 0.1 Baso # (Auto) 0.0 Absolute Nucleated RBC 0.00 Nucleated RBC % 0.0 PT INR Sodium 137 Potassium 4.4 Chloride 102 Carbon Dioxide 29 Anion Gap 6.0 BUN 16 Creatinine 0.7 Estimated GFR (MDRD) 79 L Glucose 126 H Lactic Acid 1.0 Calcium 9.1 Total Bilirubin 1.0 AST 28 ALT 25 Alkaline Phosphatase 89 Troponin I B-Natriuretic Peptide Total Protein 7.4 Albumin 3.8 Globulin 3.6 Albumin/Globulin Ratio 1.1 Lipase 24 12/25/17 12/25/17 12/25/17 13:45 13:45 13:45 WBC RBC Hgb Hct MCV MCH MCHC RDW Plt Count MPV Neut # (Auto) Lymph # (Auto) [place] # (Auto) Eos # (Auto) Baso # (Auto) Absolute Nucleated RBC Nucleated RBC % PT 22.8 H INR 2.1 H Sodium Potassium Chloride Carbon Dioxide Anion Gap BUN Creatinine Estimated GFR (MDRD) Glucose Lactic Acid Calcium Total Bilirubin AST ALT Alkaline Phosphatase Troponin I < 0.04 B-Natriuretic Peptide 422 H Total Protein Albumin Globulin Albumin/Globulin Ratio Lipase - Rads (name of study) cxr Radiology: Prelim report reviewed, EMP read contemporaneously, See rad report ( New right perihilar and basilar airspace disease concerning for pneumonia versus aspiration. Borderline CHF and fluid overload.) PD MEDICAL DECISION MAKING - ED course Complexity details: reviewed results, re-evaluated patient, considered differential, d/w patient, d/w proposal consultant ED course: Patient is an 87-year-old female who presents to the emergency department with difficulty breathing. Appears to be a COPD exacerbation secondary to pneumonia. Also found to be in atrial fibrillation with rapid ventricular response. She is hypoxic upon arrival to the emergency department and improved with increased oxygen here. She was given a dose of Lasix as well as diltiazem. Does not appear septic. Normal lactate. Normal white blood cell count. Given Rocephin and azithromycin. Well admit the patient for further care. Discussed with Dr. Packer, hospitalist who accepts. This document was made in part using voice recognition software. While efforts are made to proofread this document, sound alike and grammatical errors may occur. - Sepsis Event Vital Signs: Vital Signs - 24 hr 12/25/17 12/25/17 12/25/17 13:37 13:44 14:02 Temperature 36.2 C L Heart Rate 126 H 120 H Respiratory 24 22 Rate Blood Pressure 133/101 H O2 Saturation 87 L 97 12/25/17 12/25/17 14:52 15:06 Temperature 36.2 C L Heart Rate 121 H 120 H Respiratory 20 25 H Rate Blood Pressure 149/111 H O2 Saturation 96 Oxygen O2 Source Nasal cannula Oxygen Flow Rate 2 Departure - Departure Disposition: 66 [facility] DC/Xfer Clinical Impression: Hypoxia, Atrial fibrillation with RVR Pneumonia Qualifiers: Pneumonia type: due to unspecified organism Laterality: right Lung location: lower lobe of lung Qualified Code(s): J18.1 - Lobar pneumonia, unspecified organism COPD (chronic obstructive pulmonary disease) Qualifiers: COPD type: COPD with acute lower respiratory infection Qualified Code(s): J44.0 - Chronic obstructive pulmonary disease with acute lower respiratory infection Congestive heart failure Qualifiers: Heart failure type: unspecified Heart failure chronicity: acute on chronic Qualified Code(s): I50.9 - Heart failure, unspecified Condition: Stable
[2017-12-25 14:10] LABS: ALBUMIN 3.8 g/dL (3.2-5.5); ALBUMIN/GLOBULIN RATIO 1.1 (1.0-2.2); CALCIUM 9.1 mg/dL (8.5-10.3); CREATININE 0.7 mg/dL (0.4-1.0); TOTAL PROTEIN 7.4 g/dL (6.7-8.2)
[2017-12-25 14:12] LABS: INR 2.1 (0.8-1.2); PT - PROTHROMBIN TIME 22.8 secs (9.9-12.6)
--- NOTE | 2017-12-25 14:29 | XRAY Report ---
Procedure Date: 12/25/2017 Accession Number: [id number] / [id number] Procedure: XR - Chest 1 View X-Ray CPT Code: 17594 FULL RESULT: EXAM: CHEST RADIOGRAPHY EXAM DATE: 12/25/2017 02:02 PM. CLINICAL HISTORY: Shortness of breath. COMPARISON: 08/31/17. TECHNIQUE: 1 view. FINDINGS: Lungs/Pleura: There is new patchy airspace disease seen in the right lung base and possibly the left lung base. Pulmonary vasculature is borderline prominent. There is no effusion or pneumothorax. Mediastinum: Cardiac silhouette is mildly enlarged but stable. Other: None. IMPRESSION: 1. New right perihilar and basilar airspace disease concerning for pneumonia or aspiration. 2. Borderline CHF/fluid overload. RADIA
[2017-12-25] MEDS ORDERED: cefTRIAXone 1 GM VIAL IVP STA (14:42)
[2017-12-25] MEDS ORDERED: FUROSEMIDE 40 MG/4 ML VIAL IVP STA (14:43)
[2017-12-25] MEDS ORDERED: AZITHROMYCIN INJ 500 MG in SODIUM CHLORIDE 0.9% 250 ML IV STA (14:43)
[2017-12-25] MEDS ORDERED: diltiaZEM INJ 5 MG/ML VIAL IVP STA (14:47)
[2017-12-25] MEDS ORDERED: MORPHINE 2 MG/ML SYRINGE IVP PRN (15:11)
[2017-12-25] MEDS ORDERED: TEMAZEPAM 15 MG CAPSULE PO PRN (15:11)
[2017-12-25] MEDS ORDERED: ACETAMINOPHEN 325 MG TABLET PO PRN (15:11)
[2017-12-25] MEDS ORDERED: ONDANSETRON 4 MG/2 ML VIAL IVP PRN (15:11)
[2017-12-25 16:18] LABS: BILIRUBIN,URINE NEGATIVE (NEGATIVE); GLUCOSE, URINE (UA) NEGATIVE (NEGATIVE); KETONES,URINE (UA) NEGATIVE (NEGATIVE); LEUKOCYTE ESTERASE, URINE NEGATIVE (NEGATIVE); NITRITE,URINE NEGATIVE (NEGATIVE); OCCULT BLOOD,URINE TRACE-LYSE (NEGATIVE); PROTEIN,URINE NEGATIVE (NEGATIVE); UROBILINOGEN,URINE 0.2 (NORMAL) E.U./dL (NORMAL)
[2017-12-25 16:19] LABS: CLARITY,URINE CLEAR (CLEAR)
[2017-12-25] MEDS: SPIRONOLACTONE 25 MG TABLET PO SCH (16:53)
[2017-12-25] MEDS: POTASSIUM CHLORIDE 10 MEQ CAPSULE PO SCH (16:53)
[2017-12-25] MEDS: SODIUM CHLORIDE FLUSH 0.9% 10 ML SYRINGE IVP SCH (16:53)
[2017-12-25] MEDS: LEVALBUTEROL 1.25 MG/3 ML NEB INH SCH ×2 (17:43→20:59)
[2017-12-25] MEDS ORDERED: ENALAPRIL 5 MG TABLET PO SCH (21:00)
[2017-12-25] MEDS: METOPROLOL TARTRATE 50 MG TABLET PO SCH (21:28)
[2017-12-25] MEDS: ATORVASTATIN 40 MG TABLET PO SCH (21:28)
[2017-12-25] MEDS: ENALAPRIL 5 MG TABLET PO SCH (21:28)
[2017-12-25] MEDS: guaiFENesin 600 MG TABLET PO SCH (21:28)
[2017-12-25] MEDS: methylPREDNISolone SUCCINATE 40 MG/ML VIAL IVP SCH (21:29)
--- NOTE | 2017-12-25 22:29 | HISTORY & PHYSICAL EXAMINATION ---
DATE OF SERVICE: 12/25/2017 Physician: Fernanda Massey MD HISTORY OF PRESENT ILLNESS: This is an 87-year-old white female with a history of COPD, on nocturnal oxygen, chronic atrial fibrillation, remote ME, hypothyroidism. She developed shortness of breath with activity about 5 ago, and this progressed to a cough with minimal sputum production then severe shortness of breath at rest. She started to have wheezing. She started to use her nighttime oxygen /. Her symptoms were so severe that she presented to the emergency room. She was found to have diffuse wheezing, required nebulizer treatments, IV steroids, and a chest x-ray found pneumonia. She has received antibiotics and is being admitted for community-acquired pneumonia and COPD exacerbation. PAST MEDICAL HISTORY 1. COPD. 2. Ex-smoker who quit 4 months ago. 3. Nighttime oxygen is prescribed. 4. History of remote ME 30 years ago. 5. Chronic atrial fibrillation on Coumadin. 6. Hypothyroidism. 7. Diastolic heart failure noted on last admission 4 months ago by echocardiogram. 8. Hyperlipidemia. 9. PVD. 10. Remote DVT. 11. Chronic back pain. 12. Occasional incontinence. 13. PVD, with a right sided carotid occlusion. ALLERGIES: SULFA. MEDICATIONS 1. Enalapril 5 mg b.i.d. 2. Lasix 80 mg daily. 3. Synthroid 75 mcg daily. 4. Potassium chloride 20 mEq b.i.d. 5. Cardizem CD 180 mg daily. 6. Albuterol inhaler b.i.d. 7. Lipitor 40 mg every evening. 8. Metoprolol tartrate 150 mg p.o. b.i.d. 9. Coumadin 4 mg alternating with 6 mg. FAMILY HISTORY: No inherited diseases. SOCIAL HISTORY: The patient is a 5-gjad-f-day smoker since the age of 15. She has quit multiple times in the past. Most recent was at an admission 4 months ago when she was here with COPD and rapid atrial fibrillation. She lives alone. Her daughter lives nearby. She has someone help with cleaning once a month. Otherwise, she is independent, drives a car. The patient no longer smokes, drinks rare alcohol, uses no illicit drugs. REVIEW OF SYSTEMS: There has been no fever. There has been orthopnea worse than normal. She denies chest pain or complaints of palpitations, lightheadedness, dizziness or syncope. There has been no leg edema. Her comprehensive review of systems was performed , and the pertinent information is above; the rest are negative. PHYSICAL EXAMINATION GENERAL: Elderly white female. She is very hoarse, with a deep voice. She is in no respiratory distress; however, wheezing is audible when she speaks. VITAL SIGNS: Blood pressure 141/103. Heart rate 120-126, in atrial fibrillation after nebulizers. Currently, the heart rate is 90, in atrial fibrillation. Respiratory rate 20, oxygen saturation 98% on 2 L nasal cannula, goes down to 88% on room air. HEENT: Exam reveals dry oral mucosa, otherwise unremarkable. NECK: No JVD in a vertical position. No carotid bruits. CHEST: Diffusely diminished breath sounds. There are scattered minimal wheezes anteriorly. There are diminished breath sounds at the right base. HEART: Sounds normal without murmur. ABDOMEN: Soft, nontender. No organomegaly. EXTREMITIES: No clubbing, cyanosis, or edema. NEUROLOGIC: Intact. LABORATORIES: Normal electrolytes. Normal BUN and creatinine. Normal liver tests. Troponin not detectable. BNP elevated at 422. INR 2.1. White blood count 8.8 with a left shift, hemoglobin 12.2, platelet count 189. Urinalysis normal. CHEST X-RAY: Right perihilar and base infiltrate and mild CHF seen. EKG: Atrial fibrillation, rate of 117, low voltage in the limb leads, early RS transition and right IVCD. IMPRESSION/DIAGNOSES 1. Community-acquired pneumonia. 2. Chronic obstructive pulmonary disease exacerbation. 3. Atrial fibrillation with rapid ventricular rate. 4. Congestive heart failure by chest x-ray, acute on chronic diastolic heart failure. 5. History of coronary artery disease. 6. Hypothyroidism. 7. History of right-sided carotid artery occlusion (this obtained from record review, on the discharge summary from 4 months ago). PLAN 1. Admit the patient to a medical-surgical bed on telemetry. 2. Treat the community-acquired pneumonia with empiric ceftriaxone and Zithromax after obtaining a sputum culture and blood culture. 3. Begin nebulizer treatments as well as IV steroids for her wheezing and p.r.n. nebulizers. 4. Use additional diltiazem IV boluses if needed for rate control, or her oral beta glenna or Cardizem doses could be adjusted. 5. Use IV Lasix for gentle diuresis. 6. Follow her I's and O's, electrolytes, BUN and creatinine, and daily weights. 7. Continue with her thyroid medication and her other medications. CODE STATUS: DNR. DEEP VENOUS THROMBOSIS PROPHYLAXIS: She is therapeutically anticoagulated, SCDs will be added. ATTESTATION: The patient is expected to be discharged or transferred to another facility within 96 hours: Yes. TD: 12/25/2017 18:57 DOUG
[2017-12-26] MEDS: SODIUM CHLORIDE FLUSH 0.9% 10 ML SYRINGE IVP SCH ×3 (00:21→15:32)
[2017-12-26 05:47] LABS: BASOPHILS % (AUTO) 0.1 %; HGB - HEMOGLOBIN 11.9 g/dL (12.0-16.0); LYMPHOCYTES # (AUTO) 0.6 10^3/uL (1.5-3.5); LYMPHOCYTES % (AUTO) 9.8 %; MEAN CORPUSCULAR HGB CONC 32.4 g/dL (32.0-36.0); MEAN CORPUSCULAR VOLUME 95.8 fL (81.0-99.0); MEAN PLATELET VOLUME 8.8 fL (7.9-10.8); MONOCYTES # (AUTO) 0.1 10^3/uL (0.0-1.0); MONOCYTES % (AUTO) 1.1 %; PLT - PLATELET COUNT 172 10^3/uL (130-450); RED BLOOD COUNT 3.83 10^6/uL (4.20-5.40); RED CELL DISTRIBUTION WIDTH 15.7 % (12.0-15.0); WHITE BLOOD COUNT 5.7 x10^3/uL (4.8-10.8)
[2017-12-26 05:48] LABS: INR 1.7 (0.8-1.2); PT - PROTHROMBIN TIME 19.1 secs (9.9-12.6)
[2017-12-26 06:00] LABS: CALCIUM 9.1 mg/dL (8.5-10.3); CREATININE 0.7 mg/dL (0.4-1.0); MAGNESIUM 1.9 mg/dL (1.7-2.8)
[2017-12-26] MEDS: LEVOTHYROXINE 75 MCG TABLET PO SCH (06:13)
[2017-12-26] MEDS: methylPREDNISolone SUCCINATE 40 MG/ML VIAL IVP SCH ×3 (06:13→20:17)
[2017-12-26] MEDS: LEVALBUTEROL 1.25 MG/3 ML NEB INH SCH ×4 (07:07→19:20)
[2017-12-26] MEDS: cefTRIAXone 1 GM in SODIUM CHLORIDE 0.9% MINIBAG 100 ML IV SCH (08:24)
[2017-12-26] MEDS: FUROSEMIDE 40 MG/4 ML VIAL IVP SCH ×2 (08:24→14:06)
[2017-12-26] MEDS: POTASSIUM CHLORIDE 10 MEQ CAPSULE PO SCH ×2 (08:24→16:56)
[2017-12-26] MEDS: guaiFENesin 600 MG TABLET PO SCH ×2 (08:24→20:18)
[2017-12-26] MEDS: METOPROLOL TARTRATE 50 MG TABLET PO SCH ×2 (08:24→20:17)
[2017-12-26] MEDS: diltiaZEM CD 180 MG CAPSULE PO SCH (08:26)
[2017-12-26] MEDS: POLYETHYLENE GLYCOL 3350 17 GM PACKET PO SCH (08:26)
[2017-12-26] MEDS: FAMOTIDINE 20 MG TABLET PO SCH (08:26)
[2017-12-26] MEDS: SPIRONOLACTONE 25 MG TABLET PO SCH (08:26)
[2017-12-26] MEDS: ENALAPRIL 5 MG TABLET PO SCH ×2 (08:35→20:17)
[2017-12-26] MEDS: AZITHROMYCIN INJ 500 MG in SODIUM CHLORIDE 0.9% 250 ML IV SCH (09:58)
--- NOTE | 2017-12-26 11:29 | XRAY Report ---
Procedure Date: 12/26/2017 Accession Number: [id number] / [id number] Procedure: XR - Chest 1 View X-Ray CPT Code: 46497 FULL RESULT: EXAM: CHEST RADIOGRAPHY EXAM DATE: 12/26/2017 06:25 AM. CLINICAL HISTORY: F/U pneumonia and CHF. COMPARISON: 12/25/2017. TECHNIQUE: 1 view. FINDINGS: Lungs/Pleura: There is persistent mild prominence of the pulmonary vasculature. There are persistent bibasilar opacities. Mediastinum: There is moderate cardiomegaly. Other: None. IMPRESSION: 1. Persistent mild prominence of the pulmonary vasculature. 2. Persistent bibasilar opacities which may represent atelectasis or infection. 3. Moderate cardiomegaly. RADIA
--- NOTE | 2017-12-26 12:28 | PROVIDER PROGRESS NOTE ---
Assessment/Plan - Problem List (1) CAP (community acquired pneumonia) Qualifiers: Laterality: right Lung location: lower lobe of lung Qualified Code(s): J18.1 - Lobar pneumonia, unspecified organism Assessment/Plan: No sputum sample sent yet unfortunately and she has had several doses of antibiotics, therefore sample could have suppressed bacterial growth. Continue empiric iv antibiotics. CXR shows a similar or bilateral infiltrate, but exam is consistent with R basilar pneumonia. (2) COPD with exacerbation Assessment/Plan: Pt has better cough today, still some wheezing. Continue nebs and steroids. (3) Congestive heart failure Qualifiers: Heart failure type: unspecified Heart failure chronicity: acute on chronic Qualified Code(s): I50.9 - Heart failure, unspecified Assessment/Plan: Also cardiomegaly seen on CXR today. Will check an LVEF and RVEF by Echo. Continue iv diuretics, I's and O's and daily weight check. Continue Spironolactone and will be [facility] with this (for pulmonary HTN). (4) Atrial fibrillation with RVR Assessment/Plan: No additional HR slowing meds were needed yesterday. Today telemetry shows up to 2 sec pauses in Afib. Continue present meds and Coumadin. (5) PVD (peripheral vascular disease) Assessment/Plan: Pt reports having had bilateral CEAs and one closed after just a year. She has intermittent "weakness". Will check Carotid Doppler and lipid panel. - Current Meds Current Meds: Current Medications Generic Name Dose Route Start Last Admin Trade Name Freq PRN Reason Stop Dose Admin Atorvastatin Calcium 40 mg 12/25/17 21:00 12/25/17 21:28 Lipitor PO 40 mg QPM POP Administration Diltiazem HCl 180 mg 12/26/17 09:00 12/26/17 08:26 Cardizem Cd PO 180 mg DAILY POP Administration Enalapril Maleate 5 mg 12/25/17 21:00 12/26/17 08:35 Vasotec PO 5 mg BID POP Administration Famotidine 20 mg 12/26/17 09:00 12/26/17 08:26 Pepcid PO 20 mg DAILY POP Administration Furosemide 40 mg 12/26/17 08:00 12/26/17 08:24 Lasix Inj 40 Mg Vial IVP 40 mg 0800,1400 POP Administration Guaifenesin 600 mg 12/25/17 21:00 12/26/17 08:24 Mucinex PO 600 mg BID POP Administration Ceftriaxone Sodium 1 gm/ 100 mls @ 200 mls/hr 12/26/17 09:00 12/26/17 08:55 Sodium Chloride IV Infused DAILY OPP Infusion Azithromycin 500 mg/ Sodium 250 mls @ 250 mls/hr 12/26/17 10:00 12/26/17 10: 58 Chloride IV Infused DAILY@1000 POP Infusion Levalbuterol HCl 1.25 mg 12/26/17 11:00 12/26/17 10:57 Xopenex INH 1.25 mg RTQID POP Administration Levothyroxine Sodium 75 mcg 12/26/17 07:00 12/26/17 06:13 Synthroid PO 75 mcg QDAC POP Administration Methylprednisolone 40 mg 12/25/17 22:00 12/26/17 06:13 Solu-Medrol (40mg Vial) IVP 40 mg TID POP Administration Metoprolol Tartrate 150 mg 12/25/17 21:00 12/26/17 08:24 Lopressor PO 150 mg BID POP Administration Polyethylene Glycol 17 gm 12/26/17 09:00 12/26/17 08:26 Miralax PO Not Given DAILY POP Potassium Chloride 20 meq 12/25/17 17:00 12/26/17 08:24 Micro-K PO 20 meq BIDWM POP Administration Sodium Chloride 10 ml 12/25/17 17:00 12/26/17 08:26 Normal Saline Flush 0.9% IVP 10 ml 0100,0900,1700 POP Administration Spironolactone 25 mg 12/25/17 15:21 12/26/17 08:26 Aldactone PO 25 mg DAILY POP Administration - Lab Result Fish Bone Diagrams: 12/26/17 05:05 12/26/17 05:05 - Additional Planning My Orders: My Active Orders 12/25/17 15:21 Spironolactone [Aldactone] 25 mg PO DAILY 12/25/17 15:35 CULTURE, BLOOD #1 [RM] Stat 12/25/17 16:55 RT [Nebulizer/MDI Tx.] [RC] .qid 12/25/17 17:00 Potassium Chloride [Micro-K] 20 meq PO BIDWM 12/25/17 21:00 Atorvastatin [Lipitor] 40 mg PO QPM Enalapril [Vasotec] 5 mg PO BID Metoprolol Tartrate [Lopressor] 150 mg PO BID guaiFENesin [Mucinex] 600 mg PO BID 12/25/17 22:00 methylPREDNISolone SUCCINATE [SOLU-Medrol (40MG VIAL)] 40 mg IVP TID 12/26/17 Echo Limited [ECHO] Routine 12/26/17 07:00 Levothyroxine [Synthroid] 75 mcg PO QDAC 12/26/17 08:00 FUROSEMIDE INJ 40mg VIAL [LASIX INJ 40 mg VIAL] 40 mg IVP 0800,1400 12/26/17 09:00 cefTRIAXone [Rocephin] 1 gm Sodium Chloride 0.9% Minibag [Normal Saline 0.9% Minibag] 100 ml IV DAILY diltiaZEM CD [Cardizem Cd] 180 mg PO DAILY 12/26/17 10:00 Azithromycin Inj [Zithromax Inj] 500 mg Sodium Chloride 0.9% [Normal Saline 0.9%] 250 ml IV DAILY@1000 12/26/17 11:00 Levalbuterol [Xopenex] 1.25 mg INH RTQID 12/26/17 14:00 Warfarin [Coumadin] 4 mg PO QDWARFARIN 12/27/17 05:00 BMP - BASIC METABOLIC PANEL [CHEM] DAILYLAB BNP - B-NATRIURETIC PEPTIDE [IAI] DAILYLAB CBC - COMP BLD CT W/AUTO DIFF [HEME] DAILYLAB MAGNESIUM [CHEM] DAILYLAB PT WITH INR [COAG] DAILYLAB 12/27/17 14:00 Warfarin [Coumadin] 2 mg PO MoWeFr@1400 12/28/17 05:00 BMP - BASIC METABOLIC PANEL [CHEM] DAILYLAB CBC - COMP BLD CT W/AUTO DIFF [HEME] DAILYLAB MAGNESIUM [CHEM] DAILYLAB PT WITH INR [COAG] DAILYLAB Subjective - Subjective Patient Reports: Feeling Better, Resting Comfortably, Cough Nursing Reports: No Complaints Objective Vital Signs: Vital Signs - 24 hr 12/25/17 12/25/17 12/25/17 15:12 16:26 17:45 Temperature 36.2 C L Heart Rate 99 114 H Heart Rate [ 81 Brachial] Respiratory 23 16 20 Rate Blood Pressure 142/103 H Blood Pressure 141/128 H [Left Brachial artery] O2 Saturation 97 98 12/25/17 12/25/17 12/25/17 20:34 20:59 21:28 Temperature 36.5 C Heart Rate 67 Heart Rate [ 50 L Brachial] Respiratory 16 12 Rate Blood Pressure 123/80 Blood Pressure 139/100 H [Left Brachial artery] O2 Saturation 94 12/26/17 12/26/17 12/26/17 00:00 05:20 07:10 Temperature 36.4 C L 36.4 C L Heart Rate 80 Heart Rate [ 109 H 98 Brachial] Respiratory 18 18 14 Rate Blood Pressure Blood Pressure 129/82 H 114/89 H [Left Brachial artery] O2 Saturation 96 95 12/26/17 12/26/17 12/26/17 08:00 08:24 11:00 Temperature 36.3 C L Heart Rate 88 Heart Rate [ 109 H Brachial] Respiratory 20 16 Rate Blood Pressure 114/89 H Blood Pressure 122/61 [Left Brachial artery] O2 Saturation 97 Oxygen O2 Source Nasal cannula I&O (Last 24 Hrs): Intake and Output Totals x24h 12/24/17 12/25/17 12/26/17 23:59 23:59 23:59 Intake Total 490 1110 Output Total 1000 1000 Balance -510 110 General: Alert, Oriented x3 HEENT: Mucous membr. moist/pink, Other (Still hoarse) Neck: Supple, No JVD Neuro: Non Focal Cardiovascular: Normal S1, Normal S2, No murmurs Respiratory: No respiratory distress, Other (R base rales, L base wheezing) Abdomen: Soft Extremities: No edema - Results Results: Laboratory Results WBC 5.7 x10^3/uL (4.8-10.8) 12/26/17 05:05 RBC 3.83 10^6/uL (4.20-5.40) L 12/26/17 05:05 Hgb 11.9 g/dL (12.0-16.0) L 12/26/17 05:05 Hct 36.7 % (37.0-47.0) L 12/26/17 05:05 MCV 95.8 fL (81.0-99.0) 12/26/17 05:05 MCH 31.0 pg (27.0-31.0) 12/26/17 05:05 MCHC 32.4 g/dL (32.0-36.0) 12/26/17 05:05 RDW 15.7 % (12.0-15.0) H 12/26/17 05:05 Plt Count 172 10^3/uL (130-450) 12/26/17 05:05 MPV 8.8 fL (7.9-10.8) 12/26/17 05:05 Neut # (Auto) 5.0 10^3/uL (1.5-6.6) 12/26/17 05:05 Lymph # (Auto) 0.6 10^3/uL (1.5-3.5) L 12/26/17 05:05 Sampson # (Auto) 0.1 10^3/uL (0.0-1.0) 12/26/17 05:05 Eos # (Auto) 0.0 10^3/uL (0.0-0.7) 12/26/17 05:05 Baso # (Auto) 0.0 10^3/uL (0.0-0.1) 12/26/17 05:05 Absolute Nucleated RBC 0.00 x10^3/uL 12/26/17 05:05 Nucleated RBC % 0.1 /100WBC 12/26/17 05:05 PT 19.1 secs (9.9-12.6) H 12/26/17 05:05 INR 1.7 (0.8-1.2) H 12/26/17 05:05 Sodium 140 mmol/L (135-145) 12/26/17 05:05 Potassium 4.6 mmol/L (3.5-5.0) 12/26/17 05:05 Chloride 103 mmol/L (101-111) 12/26/17 05:05 Carbon Dioxide 29 mmol/L (21-32) 12/26/17 05:05 Anion Gap 8.0 (6-13) 12/26/17 05:05 BUN 19 mg/dL (6-20) 12/26/17 05:05 Creatinine 0.7 mg/dL (0.4-1.0) 12/26/17 05:05 Estimated GFR (MDRD) 79 (>89) L 12/26/17 05:05 Glucose 143 mg/dL (70-100) H 12/26/17 05:05 Lactic Acid 1.0 mmol/L (0.5-2.2) 12/25/17 13:45 Calcium 9.1 mg/dL (8.5-10.3) 12/26/17 05:05 Magnesium 1.9 mg/dL (1.7-2.8) 12/26/17 05:05 Total Bilirubin 1.0 mg/dL (0.2-1.0) 12/25/17 13:45 AST 28 IU/L (10-42) 12/25/17 13:45 ALT 25 IU/L (10-60) 12/25/17 13:45 Alkaline Phosphatase 89 IU/L (42-121) 12/25/17 13:45 Troponin I < 0.04 ng/mL (<0.49) 12/26/17 05:05 B-Natriuretic Peptide 413 pg/mL (5-100) H 12/26/17 05:05 Total Protein 7.4 g/dL (6.7-8.2) 12/25/17 13:45 Albumin 3.8 g/dL (3.2-5.5) 12/25/17 13:45 Globulin 3.6 g/dL (2.1-4.2) 12/25/17 13:45 Albumin/Globulin Ratio 1.1 (1.0-2.2) 12/25/17 13:45 Lipase 24 U/L (22-51) 12/25/17 13:45 Urine Color YELLOW 12/25/17 16:10 Urine Clarity CLEAR (CLEAR) 12/25/17 16:10 Urine pH 5.0 PH (5.0-7.5) 12/25/17 16:10 Ur Specific [place] 1.015 (1.002-1.030) 12/25/17 16:10 Urine Protein NEGATIVE mg/dL (NEGATIVE) 12/25/17 16:10 Urine Glucose (UA) NEGATIVE mg/dL (NEGATIVE) 12/25/17 16:10 Urine Ketones NEGATIVE mg/dL (NEGATIVE) 12/25/17 16:10 Urine Occult Blood TRACE-LYSE (NEGATIVE) 12/25/17 16:10 Urine Nitrite NEGATIVE (NEGATIVE) 12/25/17 16:10 Urine Bilirubin NEGATIVE (NEGATIVE) 12/25/17 16:10 Urine Urobilinogen 0.2 (NORMAL) E.U./dL (NORMAL) 12/25/17 16:10 Ur Leukocyte Esterase NEGATIVE (NEGATIVE) 12/25/17 16:10 Ur Microscopic Review NOT INDICATED 12/25/17 16:10 Urine Culture Comments NOT INDICATED 12/25/17 16:10
[2017-12-26] MEDS ORDERED: WARFARIN 1 MG TABLET PO SCH (14:00)
[2017-12-26] MEDS ORDERED: WARFARIN 2.5 MG TABLET PO ONE (14:00)
[2017-12-26] MEDS: SODIUM CHLORIDE FLUSH 0.9% 10 ML SYRINGE IVP PRN ×2 (14:06→20:17)
[2017-12-26] MEDS: ATORVASTATIN 40 MG TABLET PO SCH (20:17)
[2017-12-27] MEDS: SODIUM CHLORIDE FLUSH 0.9% 10 ML SYRINGE IVP SCH ×2 (01:20→08:26)
[2017-12-27 05:34] LABS: BASOPHILS % (AUTO) 0.1 %; HGB - HEMOGLOBIN 11.5 g/dL (12.0-16.0); LYMPHOCYTES # (AUTO) 0.6 10^3/uL (1.5-3.5); LYMPHOCYTES % (AUTO) 5.4 %; MEAN CORPUSCULAR HEMOGLOBIN 30.8 pg (27.0-31.0); MEAN CORPUSCULAR HGB CONC 32.2 g/dL (32.0-36.0); MEAN CORPUSCULAR VOLUME 95.6 fL (81.0-99.0); MEAN PLATELET VOLUME 8.6 fL (7.9-10.8); MONOCYTES # (AUTO) 0.5 10^3/uL (0.0-1.0); MONOCYTES % (AUTO) 4.3 %; NEUTROPHILS # (AUTO) 10.3 10^3/uL (1.5-6.6); NEUTROPHILS % (AUTO) 90.2 %; PLT - PLATELET COUNT 188 10^3/uL (130-450); RED BLOOD COUNT 3.75 10^6/uL (4.20-5.40); RED CELL DISTRIBUTION WIDTH 15.8 % (12.0-15.0); WHITE BLOOD COUNT 11.4 x10^3/uL (4.8-10.8)
[2017-12-27 05:38] LABS: CALCIUM 8.8 mg/dL (8.5-10.3); CREATININE 0.7 mg/dL (0.4-1.0)
[2017-12-27 05:45] LABS: CHOL/HDL RATIO 2.7 (<4.4); CHOLESTEROL 114 mg/dL; HDL CHOLESTEROL 42 mg/dL; LDL CHOLESTEROL,CALCULATED 63 mg/dL; LDL/HDL RATIO 1.5 (<4.4); VLDL CHOLESTEROL 9 mg/dL
[2017-12-27 05:51] LABS: INR 1.9 (0.8-1.2); PT - PROTHROMBIN TIME 21.2 secs (9.9-12.6)
[2017-12-27] MEDS: SODIUM CHLORIDE FLUSH 0.9% 10 ML SYRINGE IVP PRN (06:13)
[2017-12-27] MEDS: LEVOTHYROXINE 75 MCG TABLET PO SCH (06:13)
[2017-12-27] MEDS: methylPREDNISolone SUCCINATE 40 MG/ML VIAL IVP SCH (06:13)
[2017-12-27] MEDS: LEVALBUTEROL 1.25 MG/3 ML NEB INH SCH (07:38)
[2017-12-27] MEDS: POLYETHYLENE GLYCOL 3350 17 GM PACKET PO SCH (07:53)
[2017-12-27 08:25] VITALS: BP 119/88
[2017-12-27] MEDS: cefTRIAXone 1 GM in SODIUM CHLORIDE 0.9% MINIBAG 100 ML IV SCH (08:25)
[2017-12-27] MEDS: guaiFENesin 600 MG TABLET PO SCH (08:26)
[2017-12-27] MEDS: FAMOTIDINE 20 MG TABLET PO SCH (08:26)
[2017-12-27] MEDS: diltiaZEM CD 180 MG CAPSULE PO SCH (08:26)
[2017-12-27] MEDS: FUROSEMIDE 40 MG/4 ML VIAL IVP SCH (08:26)
[2017-12-27] MEDS: METOPROLOL TARTRATE 50 MG TABLET PO SCH (08:26)
[2017-12-27] MEDS: SPIRONOLACTONE 25 MG TABLET PO SCH (08:27)
[2017-12-27] MEDS: ENALAPRIL 5 MG TABLET PO SCH (08:27)
[2017-12-27] MEDS: POTASSIUM CHLORIDE 10 MEQ CAPSULE PO SCH (08:27)
[2017-12-27] MEDS: AZITHROMYCIN INJ 500 MG in SODIUM CHLORIDE 0.9% 250 ML IV SCH (10:12)
--- NOTE | 2017-12-27 11:53 | Discharge Plan ---
Discharge Plan Disposition: 01 Home, Self Care Condition: Stable Prescriptions: Azithromycin [Zithromax] 250 mg PO BID #14 tablet guaiFENesin [Mucinex] 600 mg PO BID #14 tablet Spironolactone [Aldactone] 25 mg PO DAILY #30 tablet Diet: Cardiac Activity Restrictions: Activity as Tolerated Shower Restrictions: No Assistance Devices: Cane Additional Instructions or Follow Up instructions: Resume all your pre-hospital medications EXCEPT: take only 1 tablet of Potassium 10 mEq daily (not 2 tablets twice a day). A prescription for Zithromax has been ordered for you. Take the pills til they are finished. A prescription for cough suppressant and expectorant (Mucinex) has been prescribed to take. A new medicine for high pressure and fluid in your lungs has been prescribed to take daily (Spironolactone). Use your inhaler more frequently than twice, as needed for the wheezing. Use the oxygen as previously planned: none at rest (unless you are short of breath), but use the oxygen at 1 L during sleep and during activities. See your doctor in 7-10 days in follow-up. No Smoking: If you smoke, Please STOP! Call for help. Follow-up with: Ada Kay MD [Primary Care Provider] -
[2017-12-27] MEDS ORDERED: WARFARIN 1 MG TABLET PO SCH (14:00)
--- NOTE | 2018-01-08 17:37 | DISCHARGE SUMMARY ---
Physician: Fernanda Massey MD DATE OF ADMISSION: 12/25/2017 DATE OF DISCHARGE: 12/27/2017 HISTORY OF PRESENT ILLNESS: This is an 87-year-old white female with a history of COPD on nocturnal oxygen, history of chronic atrial fibrillation on Coumadin, hypothyroidism, remote VT, PVD with left carotid occlusion and moderate right carotid disease, diastolic LV failure noted on admission in August 2017 by Echo, occasional urinary incontinence. The patient presented with shortness of breath, cough with minimal sputum production and had severe shortness of breath on the day of presentation. She was admitted to the hospital for CXR findings of a community-acquired pneumonia and a COPD exacerbation. HOSPITAL COURSE AND DISCHARGE DIAGNOSES 1. Community-acquired pneumonia. The patient was never able to produce a sputum sample for culture. Blood cultures were negative. She was placed on empiric antibiotics IV and transitioned over to oral Zithromax at the time of discharge. She had improvement in her symptoms in 48 hours and was felt stable for discharge. 2. Chronic obstructive pulmonary disease with exacerbation. The patient had audible wheezing, was moderately short of breath at rest and required supplemental oxygen at rest. By the time of discharge, she had improvement and only needed oxygen with activity or nocturnally as before this admission. She was managed with Mucinex, IV steroids, nebulizers. Her chest x-ray showed the infiltrate and mild chronic obstructive pulmonary disease. 3. Acute on chronic diastolic heart failure. The patient's admitting chest x- ray also showed pulmonary vascular congestion. She required diuresis and was started on new Spironolactone at the time of discharge. An Echo was done during this admission, which showed low normal left ventricular ejection fraction of 50% to 55%, mild to moderate right ventricular enlargement and low-normal right ventricular function, moderate to severe pulmonary hypertension with pulmonary artery pressure 65 mmHg, increased from 51 mmHg in August 2017. It is for this reason that the new Spironolactone was added and her potassium supplement dose was decreased significantly. 4. Atrial fibrillation with rapid ventricular response. Patient's initial heart rate was 120-140. With stabilization of her respiratory status, her heart rate improved without additional heart rate medications. She was continued on her Coumadin throughout her course. 5. Pulmonary hypertension. The above noted pulmonary artery pressures have worsened since August. Aggressive management of her chronic obstructive pulmonary disease or any other etiology for pulmonary hypertension such as sleep apnea is advised. 6. Peripheral vascular disease with occluded left carotid. The patient also has moderate right-sided disease in the carotid of 50% to 79% by testing done approximately 5 months previously. Aggressive management for vascular disease with blood pressure control, lipid control and baby aspirin are advised, including followup imaging. 7. Hypothyroidism. Patient's thyroid medicine was continued during this hospital stay. LABORATORIES AND IMAGING: Reviewed and summarized above. ALLERGIES: SULFA. MEDICATIONS AT THE TIME OF DISCHARGE 1. Ventolin inhaler. 2. Lipitor 40 mg every evening. 3. New Zithromax 250 mg b.i.d. for 7 additional days. 4. Mucinex 600 mg p.o. b.i.d. for 7 more days. 5. Diltiazem CD 180 mg daily. 6. Vasotec 5 mg b.i.d. 7. Lasix 80 mg daily. 8. Synthroid 75 mcg daily. 9. Metoprolol tartrate 150 mg b.i.d. 10. Potassium chloride 10 mEq daily (decreased from 20 mEq b.i.d.). 11. Spironolactone 25 mg daily. 12. Warfarin 4 mg daily. PHYSICAL EXAMINATION AT THE TIME OF DISCHARGE VITAL SIGNS: Blood pressure 120/88, heart rate of 98, in atrial fibrillation, afebrile, room air saturation 97%. HEENT: Unremarkable. NECK: Without JVD or carotid bruits. CHEST: Clear. HEART: Sounds normal. A 1/2 systolic murmur is heard at the sternum. No gallop. ABDOMEN: Soft, nontender, normal bowel sounds. EXTREMITIES: No clubbing, cyanosis, or edema. NEUROLOGIC: Intact. FOLLOWUP: With her PCP in 1-2 weeks. CODE STATUS: DNR. Time required to complete this entire discharge, chart review, medication prescription, dictation: 60 minutes. cc: Ada Kay MD TD: 01/08/2018 16:49 DOUG
== END 2017-12-27 12:55 | disposition home or self-care (01) | DRG 190 ==
LOC: ED 13:30 → MS2 15:11
PROVIDERS: ADMIT Internal Medicine; ATTEND Internal Medicine
DX: J44.0 Chronic obstructive pulmonary disease with (acute) lower respiratory infection (principal); I50.33 Acute on chronic diastolic (congestive) heart failure; J18.1 Lobar pneumonia, unspecified organism; I50.9 Heart failure, unspecified; E78.00 Pure hypercholesterolemia, unspecified; J44.1 Chronic obstructive pulmonary disease with (acute) exacerbation; I11.0 Hypertensive heart disease with heart failure; I48.91 Unspecified atrial fibrillation; E03.9 Hypothyroidism, unspecified; I48.2 Chronic atrial fibrillation; E78.5 Hyperlipidemia, unspecified; R32 Unspecified urinary incontinence; M19.90 Unspecified osteoarthritis, unspecified site; G89.29 Other chronic pain; M54.9 Dorsalgia, unspecified; I73.9 Peripheral vascular disease, unspecified; I65.21 Occlusion and stenosis of right carotid artery; I25.10 Atherosclerotic heart disease of native coronary artery without angina pectoris; Z96.649 Presence of unspecified artificial hip joint; Z66 Do not resuscitate; Z79.01 Long term (current) use of anticoagulants; Z79.51 Long term (current) use of inhaled steroids; Z79.891 Long term (current) use of opiate analgesic; Z79.899 Other long term (current) drug therapy; Z87.891 Personal history of nicotine dependence; Z86.718 Personal history of other venous thrombosis and embolism; I25.2 Old myocardial infarction
CPT/HCPCS: 36415; 71045; 80048; 80053; 80061; 81001; 81003; 83605; 83690; 83721; 83735; 83880; 84484; 85025; 85610; 87040; 87086; 93005; 93308; 94640; 94761; 96374; 96375; 99284; 99285

== ENCOUNTER 2018-01-04 08:00 | Outpatient (CLI) | payer MEDICARE, OTHER ==
[2018-01-04 19:02] LABS: PT - PROTHROMBIN TIME 85.7 secs (9.9-12.6)
[2018-01-04 19:24] LABS: INR 8.2 (0.8-1.2)
== END 2018-01-04 08:01 | disposition home or self-care (01) ==
LOC: LAB.WCP 08:00
PROVIDERS: ATTEND Physician Assistant
DX: Z79.01 Long term (current) use of anticoagulants (principal)
CPT/HCPCS: 36415; 85610

== ENCOUNTER 2018-01-19 00:51 | Emergency (ER) | payer MEDICARE, OTHER ==
--- NOTE | 2018-01-19 01:02 | ED Physician Documentation ---
History of Present Illness - Stated complaint Stated Complaint: WEAKNESS - Chief complaint Chief Complaint: Cardiac - History obtained from History obtained from: Patient - Additonal information Additional information: 87-year-old female presents the emergency department for evaluation of weakness and chills which started today. The patient reports generalized weakness without any area of focality. The patient denies headache, neck stiffness, chest pain, shortness of breath or dyspnea on exertion. No triggering factors. No relieving factors. Symptoms are described as moderate Review of Systems Constitutional: reports: Chills, Fatigue Eyes: denies: Discharge Ears: denies: Ear pain Nose: denies: Congestion Cardiac: denies: Chest pain / pressure, Palpitations Respiratory: denies: Dyspnea, Cough GI: denies: Abdominal Pain : denies: Hematuria Skin: denies: Rash Musculoskeletal: denies: Neck pain Neurologic: denies: Syncope Immunocompromised: denies: Transplant PD PAST MEDICAL HISTORY - Past Medical History Cardiovascular: Congestive heart failure, Hypertension, High cholesterol, Coronary artery disease, Peripheral Vascular Disease, Deep vein thrombosis, [place], Atrial fibrillation Respiratory: COPD Endocrine/Autoimmune: HyPOthyroidism GI: None 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 : 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 HEENT: Other Psych: None Musculoskeletal: Osteoarthritis, Chronic back pain Derm: Other - Past Surgical History Past Surgical History: No Ortho: Hip replacement HEENT: Cataracts - Present Medications Home Medications: Ambulatory Orders Medication Instructions Recorded Confirmed Enalapril [Vasotec] 5 mg PO BID 08/31/17 12/25/17 Furosemide 80 mg PO DAILY 08/31/17 12/25/17 Levothyroxine [Synthroid] 75 mcg PO QDAC 08/31/17 12/25/17 [id number] CD [Cardizem Cd] 180 mg PO DAILY 08/31/17 12/25/17 Albuterol Sulf [Ventolin Hfa 2 puffs INH Q4H PRN 12/25/17 12/25/17 Inhaler] Atorvastatin Calcium 40 mg PO QPM 12/25/17 12/25/17 Metoprolol Tartrate 150 mg PO BID 12/25/17 12/25/17 Warfarin Sodium [Coumadin] 4 mg PO DAILY 12/25/17 12/25/17 Azithromycin [Zithromax] 250 mg PO BID #14 tablet 12/27/17 Potassium Chloride 10 meq PO DAILY #0 12/27/17 12/25/17 Spironolactone [Aldactone] 25 mg PO DAILY #30 tablet 12/27/17 guaiFENesin [Mucinex] 600 mg PO BID #14 tablet 12/27/17 Cephalexin [Keflex] 500 mg PO BID #14 capsule 01/19/18 - Allergies Allergies/Adverse Reactions: Allergies Allergy/AdvReac Type Severity Reaction Status Date / Time Sulfa (Sulfonamide Allergy Edema Verified 08/31/17 16:23 Antibiotics) - Social History Does the pt smoke?: No Smoking Status: Former smoker - POLST Patient has POLST: No POLST Status: she has advanced directive and is DNR, DNI and no tube feeds PD ED PE NORMAL - General General: Alert and oriented X 3, No acute distress - HEENT HEENT: Atraumatic, PERRL, EOMI - Neck Neck: Supple, no meningeal sign - Respiratory Respiratory: No respiratory distress, Clear bilaterally - Abdomen Abdomen: Normal bowel sounds, Non tender, Non distended - Derm Derm: Normal color - Extremities Extremities: No deformity, No edema - Neuro Neuro: Alert and oriented X 3, No motor deficit, Normal speech - Psych Psych: Normal mood PD ED PE EXPANDED - Cardiac Cardiac: Regular Rate, Irregularly irregular Results - Vitals Vitals: Vital Signs - 24 hr 01/19/18 01/19/18 00:58 02:22 Temperature 35.8 C L Heart Rate 109 H 73 Respiratory 16 95 H Rate Blood Pressure 91/72 120/67 O2 Saturation 95 95 Oxygen O2 Source [With Activity] Nasal cannula O2 Source [Without Activity] Nasal cannula O2 Source Room air - EKG (time done) 01: 13 Rate: Rate (enter#) Rhythm: Atrial fibrillation Intervals: QRS normal Ischemia: Normal ST segments Compare to prior EKG: Unchanged from prior EKG - Labs Labs: Laboratory Tests 01/19/18 01/19/18 01/19/18 01:00 01:26 01:26 WBC 14.5 H RBC 4.06 L Hgb 12.9 Hct 38.0 MCV 93.6 MCH 31.7 H MCHC 33.9 RDW 15.7 H Plt Count 213 MPV 8.9 Neut # (Auto) 12.5 H Lymph # (Auto) 0.8 L [place]ke # (Auto) 1.0 Eos # (Auto) 0.1 Baso # (Auto) 0.0 Absolute Nucleated RBC 0.01 Nucleated RBC % 0.1 PT 31.5 H INR 2.9 H APTT 33.5 H Sodium Potassium Chloride Carbon Dioxide Anion Gap BUN Creatinine Estimated GFR (MDRD) Glucose Lactic Acid Calcium Magnesium Total Bilirubin AST ALT Alkaline Phosphatase Troponin I Total Protein Albumin Globulin Albumin/Globulin Ratio Lipase Urine Color YELLOW Urine Clarity CLEAR Urine pH 6.0 Ur Specific [place] 1.015 Urine Protein NEGATIVE Urine Glucose (UA) NEGATIVE Urine Ketones NEGATIVE Urine Occult Blood TRACE-INTA Urine Nitrite NEGATIVE Urine Bilirubin NEGATIVE Urine Urobilinogen 0.2 (NORMAL) Ur Leukocyte Esterase SMALL H Urine RBC 0-5 Urine WBC 0-3 Ur Squamous Epith Cells FEW Squamous Urine Bacteria Few Ur Microscopic Review INDICATED Urine Culture Comments INDICATED 01/19/18 01/19/18 01/19/18 01:26 01:26 01:26 WBC RBC Hgb Hct MCV MCH MCHC RDW Plt Count MPV Neut # (Auto) Lymph # (Auto) [place]ke # (Auto) Eos # (Auto) Baso # (Auto) Absolute Nucleated RBC Nucleated RBC % PT INR APTT Sodium 137 Potassium 4.8 Chloride 99 L Carbon Dioxide 30 Anion Gap 8.0 BUN 26 H Creatinine 0.9 Estimated GFR (MDRD) 59 L Glucose 135 H Lactic Acid 1.2 Calcium 9.1 Magnesium 1.7 Total Bilirubin 1.0 AST 33 ALT 30 Alkaline Phosphatase 73 Troponin I < 0.04 Total Protein 7.3 Albumin 4.1 Globulin 3.2 Albumin/Globulin Ratio 1.3 Lipase 29 Urine Color Urine Clarity Urine pH Ur Specific [place] Urine Protein Urine Glucose (UA) Urine Ketones Urine Occult Blood Urine Nitrite Urine Bilirubin Urine Urobilinogen Ur Leukocyte Esterase Urine RBC Urine WBC Ur Squamous Epith Cells Urine Bacteria Ur Microscopic Review Urine Culture Comments - Rads (name of study) Chest x-ray Radiology: Final report received (Impression. Cardiomegaly without acute abnormality) PD MEDICAL DECISION MAKING - ED course ED course: The patient's workup does not reveal evidence of sepsis or acute abnormality that would necessitate admission to the hospital. The patient appears stable and appropriate for treatment as an outpatient. I discussed warning signs for decompensation and recommended returning to the emergency department immediately for worsening or new concerns. - Sepsis Event Vital Signs: Vital Signs - 24 hr 01/19/18 01/19/18 00:58 02:22 Temperature 35.8 C L Heart Rate 109 H 73 Respiratory 16 95 H Rate Blood Pressure 91/72 120/67 O2 Saturation 95 95 Oxygen O2 Source [With Activity] Nasal cannula O2 Source [Without Activity] Nasal cannula O2 Source Room air Departure - Departure Disposition: 01 Home, Self Care Clinical Impression: Weakness UTI (urinary tract infection) Qualifiers: Urinary tract infection type: site unspecified Hematuria presence: without hematuria Qualified Code(s): N39.0 - Urinary tract infection, site not specified Elevated WBC count Qualifiers: Leukocytosis type: unspecified Qualified Code(s): D72.829 - Elevated white blood cell count, unspecified Atrial fibrillation Qualifiers: Atrial fibrillation type: chronic Qualified Code(s): I48.2 - Chronic atrial fibrillation Condition: Good Instructions: ED Infec Bladder Female Ch, ED Weakness [facility] Follow-Up: Ada Kay MD [Primary Care Provider] - Within 1 week Prescriptions: Cephalexin [Keflex] 500 mg PO BID #14 capsule Comments: Please recheck your INR this Wednesday since antibiotics may interfere with Coumadin and because your INR to be elevated. Please return to the emergency department immediately for worsening or any concerns
[2018-01-19 01:19] LABS: BILIRUBIN,URINE NEGATIVE (NEGATIVE); GLUCOSE, URINE (UA) NEGATIVE (NEGATIVE); KETONES,URINE (UA) NEGATIVE (NEGATIVE); LEUKOCYTE ESTERASE, URINE SMALL (NEGATIVE); NITRITE,URINE NEGATIVE (NEGATIVE); OCCULT BLOOD,URINE TRACE-INTA (NEGATIVE); PROTEIN,URINE NEGATIVE (NEGATIVE); UROBILINOGEN,URINE 0.2 (NORMAL) E.U./dL (NORMAL)
[2018-01-19 01:20] LABS: CLARITY,URINE CLEAR (CLEAR)
[2018-01-19 01:22] LABS: BACTERIA,URINE Few /HPF (None Seen); RBC,URINE 0-5 /HPF (0-5); SQUAMOUS EPITHELIAL CELL,UR FEW Squamous (<= Few)
[2018-01-19 01:41] LABS: BASOPHILS % (AUTO) 0.2 %; EOSINOPHILS # (AUTO) 0.1 10^3/uL (0.0-0.7); EOSINOPHILS % (AUTO) 0.5 %; HGB - HEMOGLOBIN 12.9 g/dL (12.0-16.0); LYMPHOCYTES # (AUTO) 0.8 10^3/uL (1.5-3.5); LYMPHOCYTES % (AUTO) 5.7 %; MEAN CORPUSCULAR HEMOGLOBIN 31.7 pg (27.0-31.0); MEAN CORPUSCULAR HGB CONC 33.9 g/dL (32.0-36.0); MEAN CORPUSCULAR VOLUME 93.6 fL (81.0-99.0); MEAN PLATELET VOLUME 8.9 fL (7.9-10.8); MONOCYTES % (AUTO) 7.1 %; NEUTROPHILS # (AUTO) 12.5 10^3/uL (1.5-6.6); NEUTROPHILS % (AUTO) 86.5 %; PLT - PLATELET COUNT 213 10^3/uL (130-450); RED BLOOD COUNT 4.06 10^6/uL (4.20-5.40); RED CELL DISTRIBUTION WIDTH 15.7 % (12.0-15.0); WHITE BLOOD COUNT 14.5 x10^3/uL (4.8-10.8)
[2018-01-19 01:43] LABS: INR 2.9 (0.8-1.2); PT - PROTHROMBIN TIME 31.5 secs (9.9-12.6)
[2018-01-19 02:17] LABS: ALBUMIN 4.1 g/dL (3.2-5.5); ALBUMIN/GLOBULIN RATIO 1.3 (1.0-2.2); CALCIUM 9.1 mg/dL (8.5-10.3); CREATININE 0.9 mg/dL (0.4-1.0); MAGNESIUM 1.7 mg/dL (1.7-2.8); TOTAL PROTEIN 7.3 g/dL (6.7-8.2)
--- NOTE | 2018-01-19 02:19 | XRAY Report ---
Procedure Date: 01/19/2018 Accession Number: [id number] / [id number] Procedure: XR - Chest 2 View X-Ray CPT Code: 94204 FULL RESULT: EXAM: CHEST RADIOGRAPHY EXAM DATE: 01/19/2018 01:51 AM. CLINICAL HISTORY: Chest pain. COMPARISON: CHEST 1 VIEW 12/26/2017. TECHNIQUE: 2 views. FINDINGS: Lungs/Pleura: Large volumes with basilar scarring/atelectasis. No focal pneumonia or overt edema. No pneumothorax or effusion. Mediastinum: Moderate cardiomegaly. No mediastinal shift. Other: None. IMPRESSION: COPD and moderate cardiomegaly but without acute process seen in the chest. RADIA
[2018-01-19] MEDS ORDERED: SODIUM CHLORIDE 0.9% 500 ML IV ONE (02:47)
[2018-01-19] MEDS ORDERED: cefTRIAXone 1 GM in SODIUM CHLORIDE 0.9% MINIBAG 100 ML IV STA ×2 (02:47→03:11)
[2018-01-19 03:27] VITALS: BP 106/74
== END 2018-01-19 03:56 | disposition home or self-care (01) ==
LOC: ED 00:51
DX: N39.0 Urinary tract infection, site not specified (principal); R53.1 Weakness; D72.829 Elevated white blood cell count, unspecified; I48.2 Chronic atrial fibrillation; Z79.01 Long term (current) use of anticoagulants; I11.0 Hypertensive heart disease with heart failure; I50.9 Heart failure, unspecified; Z87.891 Personal history of nicotine dependence
CPT/HCPCS: 36415; 71046; 80053; 81001; 81003; 83605; 83690; 83735; 83880; 84484; 85025; 85610; 85730; 87040; 87086; 93005; 96365; 99283

== ENCOUNTER 2018-04-04 14:47 | Outpatient (CLI) | payer MEDICARE, OTHER ==
--- NOTE | 2018-04-04 17:08 | Ultrasound Report ---
Reason: CAROTID ARTERY STENOSIS Procedure Date: 04/04/2018 Accession Number: [id number] / [id number] Procedure: US - Carotid Doppler Complete CPT Code: FULL RESULT: EXAM: BILATERAL CAROTID AND VERTEBRAL ARTERY DUPLEX DOPPLER ULTRASOUND: EXAM DATE: 04/04/2018 03:36 PM CLINICAL HISTORY: Carotid artery stenosis. COMPARISON: CAROTID DOPPLER COMPLETE 07/21/2016 2:57 PM. TECHNIQUE: Grayscale imaging, color Doppler, and duplex spectral Doppler were used to evaluate the carotid and vertebral arteries bilaterally. Static images were obtained. FINDINGS: Left carotid system is occluded. Appearance of the right carotid system is consistent with status post endarterectomy. No significant plaque is identified in the right common or internal carotid arteries. Flow is present in both vertebral arteries. Due to unfavorable Doppler angle the flow direction is not confidently established. VELOCITIES (cm/sec): Right CCA mid: PSV 71 cm/sec CCA dist: PSV 69 cm/sec ICA prox: PSV 118 cm/sec, EDV 38 cm/sec ICA mid: PSV 126 cm/sec, EDV 49 cm/sec ICA dist: PSV 150 cm/sec, EDV 44 cm/sec ECA: PSV 77 cm/sec Vert: PSV 52 cm/sec ICA/CCA: 2.2 Left ECA: PSV 22 cm/sec Vert: PSV 63 cm/sec IMPRESSION: 1. 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 2. Irregular heart rate. 3. Patent right carotid system with no hemodynamically significant stenosis. RADIA
== END 2018-04-04 14:48 | disposition home or self-care (01) ==
LOC: DI 14:47
PROVIDERS: ATTEND Family Medicine
DX: I65.22 Occlusion and stenosis of left carotid artery (principal)
CPT/HCPCS: 93880

== ENCOUNTER 2018-09-22 08:00 | Outpatient (CLI) | payer MEDICARE, OTHER | END 2018-09-22 23:59 | disposition home or self-care (01) | LOC: LAB.WCP 08:00 | PROVIDERS: ATTEND Family Medicine | DX: I48.0 Paroxysmal atrial fibrillation (principal); Z79.01 Long term (current) use of anticoagulants ==

== ENCOUNTER 2018-09-28 08:00 | Outpatient (CLI) | payer MEDICARE, OTHER | END 2018-09-28 23:59 | disposition home or self-care (01) | LOC: LAB.WCP 08:00 | PROVIDERS: ATTEND Physician Assistant | DX: I48.0 Paroxysmal atrial fibrillation (principal); Z79.01 Long term (current) use of anticoagulants | CPT/HCPCS: 81025 ==

== ENCOUNTER 2018-10-05 08:00 | Outpatient (CLI) | payer MEDICARE, OTHER | END 2018-10-05 23:59 | disposition home or self-care (01) | LOC: LAB.WCP 08:00 | PROVIDERS: ATTEND Family Medicine | DX: I48.91 Unspecified atrial fibrillation (principal); Z79.01 Long term (current) use of anticoagulants ==

== ENCOUNTER 2018-10-21 18:31 | Outpatient (CLI) | payer MEDICARE, OTHER | END 2018-10-21 18:32 | disposition critical access hospital (66) | LOC: EMS 18:31 | PROVIDERS: ATTEND Surgery | DX: R41.82 Altered mental status, unspecified (principal) | CPT/HCPCS: A0425; A0429 ==

== ENCOUNTER 2018-10-21 18:50 | Inpatient (IN) | payer MEDICARE, OTHER ==
[2018-10-21] MEDS ORDERED: SODIUM CHLORIDE 0.9% 1,000 ML IV ONE (18:59)
[2018-10-21 19:16] LABS: BASOPHILS % (AUTO) 0.5 %; EOSINOPHILS # (AUTO) 0.1 10^3/uL (0.0-0.7); EOSINOPHILS % (AUTO) 1.2 %; HGB - HEMOGLOBIN 11.7 g/dL (12.0-16.0); LYMPHOCYTES # (AUTO) 0.5 10^3/uL (1.5-3.5); LYMPHOCYTES % (AUTO) 7.9 %; MEAN CORPUSCULAR HEMOGLOBIN 30.5 pg (27.0-31.0); MEAN CORPUSCULAR HGB CONC 31.5 g/dL (32.0-36.0); MEAN PLATELET VOLUME 7.7 fL (7.9-10.8); MONOCYTES # (AUTO) 0.6 10^3/uL (0.0-1.0); MONOCYTES % (AUTO) 9.7 %; NEUTROPHILS # (AUTO) 5.2 10^3/uL (1.5-6.6); NEUTROPHILS % (AUTO) 80.7 %; PLT - PLATELET COUNT 242 10^3/uL (130-450); RED BLOOD COUNT 3.85 10^6/uL (4.20-5.40); RED CELL DISTRIBUTION WIDTH 16.3 % (12.0-15.0); WHITE BLOOD COUNT 6.4 x10^3/uL (4.8-10.8)
[2018-10-21 19:37] LABS: ALBUMIN 3.4 g/dL (3.2-5.5); ALBUMIN/GLOBULIN RATIO 0.9 (1.0-2.2); BILIRUBIN,TOTAL 0.8 mg/dL (0.2-1.0); CALCIUM 9.2 mg/dL (8.5-10.3); CREATININE 0.6 mg/dL (0.4-1.0); TOTAL PROTEIN 7.1 g/dL (6.7-8.2)
--- NOTE | 2018-10-21 19:38 | CT Report ---
Reason: ALOC Procedure Date: 10/21/2018 Accession Number: [id number] / [id number] Procedure: CT - Head W/O Stroke Protocol CPT Code: FULL RESULT: EXAM: CT HEAD EXAM DATE: 10/21/2018 07:25 PM. CLINICAL HISTORY: Altered level of consciousness. COMPARISON: Head CT 01/18/2008. TECHNIQUE: Multiaxial CT images were obtained from the foramen magnum to the vertex. Reformats: Sagittal and coronal. IV contrast: None. In accordance with CT protocol optimization, one or more of the following dose reduction techniques were utilized for this exam: automated exposure control, adjustment of mA and/or KV based on patient size, or use of iterative reconstructive technique. FINDINGS: Parenchyma: There is a moderate amount of bilateral periventricular white matter hypodensity which is increased since 2007. Negative for acute hemorrhage. There is no midline shift. Extraaxial Spaces: No subdural or epidural hematoma. There is a round dense calcification measuring 12 mm along the superior right cerebral convexity which appears unchanged. Ventricles: Normal in size and position. Sinuses and Orbits: Imaged paranasal sinuses, orbits, and mastoids show no significant abnormality. Bones: No evidence of fracture or calvarial defect. Other: None. IMPRESSION: 1. Negative for acute hemorrhage and mass-effect. 2. Moderate diffuse white matter disease is increased since 2007. Findings are nonspecific but most commonly attributed to sequela of chronic microangiopathy. RADIA The critical test notification system was initiated by Dr. Christian Brice at 07:37 PM on 10/21/2018. ADDENDUM: 10/21/18 19:39 The above critical test findings were discussed with Chava Resendez by Dr. Christian Brice at 07:39 PM on 10/21/2018.
[2018-10-21] MEDS ORDERED: diltiaZEM INJ 125 MG in DEXTROSE 5% 100 ML IV STA (19:39)
--- NOTE | 2018-10-21 19:40 | ED Physician Documentation ---
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 Similar symptoms before: Has not had sx before Recently seen: Not recently seen Review of Systems Unable to obtain: Confused (Patient is still intermittently confused when I am speaking with her) Constitutional: denies: Fever, Chills Nose: denies: Rhinorrhea / runny nose, Congestion GI: denies: Vomiting Skin: denies: Rash Musculoskeletal: denies: Neck pain, Back pain Neurologic: denies: Headache PD PAST MEDICAL HISTORY - Past Medical History Past Medical History: Yes Cardiovascular: Congestive heart failure, Hypertension, High cholesterol, Coronary artery disease, Peripheral Vascular Disease, Deep vein thrombosis, [place], Atrial fibrillation Respiratory: COPD Endocrine/Autoimmune: HyPOthyroidism GI: None 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 : 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 HEENT: Other Psych: None Musculoskeletal: Osteoarthritis, Chronic back pain Derm: Other - Past Surgical History Past Surgical History: Yes Ortho: Hip replacement HEENT: Cataracts - Present Medications Home Medications: Ambulatory Orders Medication Instructions Recorded Confirmed Enalapril [Vasotec] 5 mg PO BID 08/31/17 10/21/18 Furosemide 80 mg PO DAILY 08/31/17 10/21/18 Levothyroxine [Synthroid] 75 mcg PO QDAC 08/31/17 10/21/18 [id number] CD [Cardizem Cd] 180 mg PO DAILY 08/31/17 10/21/18 Albuterol Sulf [Ventolin Hfa 2 puffs INH Q4H PRN 12/25/17 10/21/18 Inhaler] Atorvastatin Calcium 40 mg PO QPM 12/25/17 10/21/18 Metoprolol Tartrate 150 mg PO BID 12/25/17 10/21/18 Warfarin Sodium [Coumadin] 4 mg PO DAILY 12/25/17 10/21/18 Potassium Chloride 10 meq PO DAILY #0 12/27/17 10/21/18 Spironolactone [Aldactone] 25 mg PO DAILY #30 tablet 12/27/17 10/21/18 - Allergies Allergies/Adverse Reactions: Allergies Allergy/AdvReac Type Severity Reaction Status Date / Time Sulfa (Sulfonamide Allergy Edema Verified 10/21/18 18:57 Antibiotics) - Social History Does the pt smoke?: No Smoking Status: Never smoker Does the pt drink ETOH?: No Does the pt have substance abuse?: No - Immunizations Immunizations are current?: Yes - POLST Patient has POLST: No POLST Status: she has advanced directive and is DNR, DNI and no tube feeds PD ED PE NORMAL - Vitals Vital signs reviewed: Yes - General General: No acute distress, Other (Alert, oriented to person and place, not to time) - HEENT HEENT: Atraumatic, PERRL, Moist mucous membranes, Pharynx benign - Neck Neck: Supple, no meningeal sign, No bony TTP - Cardiac Cardiac: Other (Irregular, tachycardic) - Respiratory Respiratory: No respiratory distress, Other (Mildly diminished bilaterally) - Abdomen Abdomen: Soft, Non tender, Non distended - Derm Derm: Warm and dry - Extremities Extremities: No deformity, No calf tenderness / cord - Neuro Neuro: Other (Alert) - Psych Psych: Normal mood, Normal affect NIHSS - Time Time: 18:58 - Level of Consciousness Level of consciousness: (0) Alert, Keenly responsive LOC Questions: (1) Answers one Q correctly LOC Commands: (0) Performs both correctly - Gaze Best Gaze: (0) Normal - Visual Visual: (0) No loss - Facial Palsy Facial Palsy: (0) Normal, symmetrical movement - Motor Arms (both separate) Motor Arm (right): (0) No drift Motor Arm (left): (0) No drift - Motor Legs (both separate) Motor Leg (right): (0) No drift Motor Leg (left): (0) No drift - Limb Ataxia Limb Ataxia: (0) Absent - Sensory Sensory: (0) Normal - Best Language Best Language: (0) No aphasia - Dysarthria Dysarthria: (0) Normal - Extinction and Inattention (formally neg Extinction and inattention: (0) No abnormality - Total Score/Results Total Score/Result: 1 Results - Vitals Vitals: Vital Signs - 24 hr 10/21/18 10/21/18 10/21/18 18:52 19:09 20:06 Temperature 36.4 C L Heart Rate 101 H 165 H 144 H Respiratory 20 17 33 H Rate Blood Pressure 164/118 H 164/118 H 165/53 H O2 Saturation 99 96 93 10/21/18 10/21/18 10/21/18 20:15 20:21 20:30 Temperature Heart Rate 154 H 170 H 151 H Respiratory 35 H 133 H 29 H Rate Blood Pressure 165/53 H 162/78 H 159/94 H O2 Saturation 97 93 92 10/21/18 20:35 Temperature Heart Rate 161 H Respiratory 25 H Rate Blood Pressure 147/86 H O2 Saturation 93 Oxygen O2 Source [With Activity] Nasal cannula O2 Source [Without Activity] Nasal cannula O2 Source Nasal cannula Oxygen Flow Rate 2 - EKG (time done) 1904 Rate: Rate (enter#) (162) Rhythm: Atrial fibrillation ( w/ RVR) [place]: Normal QRS: Normal Ischemia: Other (ST changes likely rate related) - Labs Labs: Laboratory Tests 10/21/18 10/21/18 10/21/18 19:09 19:09 19:45 WBC 6.4 RBC 3.85 L Hgb 11.7 L Hct 37.3 MCV 97.0 MCH 30.5 MCHC 31.5 L RDW 16.3 H Plt Count 242 MPV 7.7 L Neut # (Auto) 5.2 Lymph # (Auto) 0.5 L [place] # (Auto) 0.6 Eos # (Auto) 0.1 Baso # (Auto) 0.0 Absolute Nucleated RBC 0.01 Nucleated RBC % 0.2 Sodium 143 Potassium 4.0 Chloride 94 L Carbon Dioxide 39 H* Anion Gap 10.0 BUN 21 H Creatinine 0.6 Estimated GFR (MDRD) 95 Glucose 146 H Calcium 9.2 Total Bilirubin 0.8 AST 29 ALT 20 Alkaline Phosphatase 77 Total Protein 7.1 Albumin 3.4 Globulin 3.7 Albumin/Globulin Ratio 0.9 L Lipase 24 Urine Color YELLOW Urine Clarity CLEAR Urine pH 5.5 Ur Specific [place] 1.025 Urine Protein TRACE Urine Glucose (UA) NEGATIVE Urine Ketones 15 H Urine Occult Blood TRACE-LYSE Urine Nitrite NEGATIVE Urine Bilirubin NEGATIVE Urine Urobilinogen 2 H Ur Leukocyte Esterase NEGATIVE Ur Microscopic Review NOT INDICATED Urine Culture Comments NOT INDICATED - Rads (name of study) Head CT Radiology: Prelim report reviewed, EMP read contemporaneously, See rad report (No acute hemorrhage or mass-effect. Moderate diffuse white matter disease increased since 2007. Findings are nonspecific but most commonly attributed to sequelae of microangiopathy) PD MEDICAL DECISION MAKING - ED course Complexity details: reviewed results, re-evaluated patient, considered differential, d/w patient, d/w family, d/w systems management consultant ED course: 88-year-old female with confusion today. Found to be in atrial fibrillation with rapid ventricular response. She was started on a diltiazem drip and will admit to the ICU. Initially the diltiazem drip was hung, but medication was not added to the bag, therefore the nurse re-hung the bag with medication, but is found that the medication and the diltiazem slot and the machine had been excellently replaced with famotidine. This was stopped, diltiazem was then fou nd and hung on the patient. Her heart rate did respond to the diltiazem drip. Discussed the case with the hospitalist, Dr. Mariela mcfarland who accepts. This document was made in part using voice recognition software. While efforts are made to proofread this document, sound alike and grammatical errors may occur. Departure - Departure Disposition: 66 [facility] DC/Xfer Clinical Impression: Atrial fibrillation with RVR Altered mental status Qualifiers: Altered mental status type: unspecified Qualified Code(s): R41.82 - Altered mental status, unspecified Condition: Stable Discharge Date/Time: 10/21/18 21:28
[2018-10-21 19:54] LABS: GLUCOSE, URINE (UA) NEGATIVE (NEGATIVE); KETONES,URINE (UA) 15 mg/dL (NEGATIVE); LEUKOCYTE ESTERASE, URINE NEGATIVE (NEGATIVE); NITRITE,URINE NEGATIVE (NEGATIVE); OCCULT BLOOD,URINE TRACE-LYSE (NEGATIVE); PH,URINE 5.5 PH (5.0-7.5); PROTEIN,URINE TRACE mg/dL (NEGATIVE); UROBILINOGEN,URINE 2 E.U./dL (NORMAL)
[2018-10-21 20:19] LABS: BILIRUBIN,URINE NEGATIVE (NEGATIVE); CLARITY,URINE CLEAR (CLEAR); ICTOTEST,URINE NEGATIVE
[2018-10-21] MEDS ORDERED: diltiaZEM INJ 5 MG/ML VIAL IVP STA (20:24)
[2018-10-21] MEDS ORDERED: diltiaZEM INJ 5 MG/ML VIAL ONE ×2 (20:31→20:57)
[2018-10-21] MEDS ORDERED: SODIUM CHLORIDE 0.9% 1,000 ML IV SCH (21:00)
[2018-10-21 21:49] LABS: PT - PROTHROMBIN TIME 72.4 secs (9.9-12.6)
[2018-10-21] MEDS: diltiaZEM INJ 125 MG in DEXTROSE 5% 100 ML IV SCH (22:01)
[2018-10-21 22:06] LABS: INR 6.5 (0.8-1.2)
[2018-10-21] MEDS ORDERED: METOPROLOL 5 MG/5 ML VIAL IVP STA (22:18)
[2018-10-21] MEDS ORDERED: CHERRY SYRUP 10 ML UDC PO ONE (22:19)
[2018-10-21] MEDS ORDERED: PHYTONADIONE 10 MG/ML AMP PO ONE (22:19)
[2018-10-21 22:24] LABS: THYROID STIMULATING HORMONE 1.17 uIU/mL (0.34-5.60)
[2018-10-21 22:28] LABS: FREE T4 (FREE THYROXINE) 1.1 ng/dL (0.58-1.64)
[2018-10-21] MEDS ORDERED: SODIUM CHLORIDE FLUSH 0.9% 10 ML SYRINGE ONE (22:28)
[2018-10-21] MEDS: NYSTATIN POWDER 15 GM TOP SCH (22:32)
[2018-10-21] MEDS: SODIUM CHLORIDE FLUSH 0.9% 10 ML SYRINGE IVP SCH (22:33)
--- NOTE | 2018-10-21 22:48 | HISTORY & PHYSICAL EXAMINATION ---
Chief Complaint - Chief Complaint Chief Complaint: encephalopathy History of Present Illness - Admitted From Admitted From:: [facility] ED - History Obtained From Records Reviewed: yes History obtained from: family and chart - History of Present Illness HPI Comment/Other: Patient seen on 10/21/18 at 2045pm. Patient is an 88 y/o female who presented to the [facility] ED via EMS for encephalopathy. She lives alone but one of her sons checks on her daily. He went to her residence around 6pm and she was sleeping. He had a hard time waking her up and it took a while for her to be coherent. As a result, he called EMS. She was found to have a blood glucose of 71 so she was given yogurt and her blood glucose improve to 123. She was found to have a heart rate between 140-150's. He son thinks she forgot to take her medications yesterday. Her son's spoke to the patient around 10pm the previous day and reports that the patient was doing well at the time. She is usually on 1-2 liters of oxygen nasal canula at home and gets around usi ng a walker or cane During my exam it took a few promptings to get an accurate response of where she was currently. Intermittently she goes through periods where she is just staring and not responding to her name. Her son confirms that she was acting the same way earlier. She denied chest pain, JOHAN, abd pain, nausea, vomiting or diarrhea, fever or chills. As a result of her presentation, she is being admitted for further management. History - Past Medical History Cardiovascular: reports: Congestive heart failure (diastolic and related to fast heart rate), Hypertension, High cholesterol, Coronary artery disease, Peripheral Vascular Disease, Deep vein thrombosis (entire left leg 2009), SC, Atrial fibrillation Respiratory: reports: COPD Neuro: reports: CVA (found on incidental MRI's. multiple), Other (carotid stenosis) Endocrine/Autoimmune: reports: HyPOthyroidism GI: reports: None ASSOCIATE MANAGER: reports: Other () : reports: 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 HEENT: reports: Other (Hx of bilateral cataract surgeries) Psych: reports: None Musculoskeletal: reports: Osteoarthritis, Chronic back pain Derm: reports: Other MRSA Hx?: No - Past Surgical History Ortho: reports: Hip replacement HEENT: reports: Cataracts - Family & Social History Family History Comment/Other: Dad at 75 of COPD. Mom at age 89 with unknown heart issues and HTN. 1 brother at 21 when in the . She has had 5 children: daughter is a smoker and has a broken back, once child of SIDS age 1.5 months Social History Notes: She is from [place]. twice and both husbands . She was living in [place] with 4 other: a daughter, daughters partner, daughter in laws mother and her. 2 women in their 60's and 80's. Did NOT work out. Moved here December 2014 to be with one of her sons. He's retired [employer] and lives nearby. She lives in her own apartment. Not lonely. Doesn her own ADL's. She began seeing Dr. Kay 05/2015. she is a 1-2 ppd smoker who quit in 2012 then resumed and quit again last month. No history of IVDA,recreational substance abuse, or alcohol abuse. - Substance History Use: Uses substance without health or social issues: Tobacco - POLST Patient has POLST: No POLST Status: DNR Meds/Allgy - Home Medications Home Medications: Ambulatory Orders Medication Instructions Recorded Confirmed Enalapril [Vasotec] 5 mg PO BID 08/31/17 10/21/18 Furosemide 80 mg PO DAILY 08/31/17 10/21/18 Levothyroxine [Synthroid] 75 mcg PO QDAC 08/31/17 10/21/18 diltiaZEM CD [Cardizem Cd] 180 mg PO DAILY 08/31/17 10/21/18 Albuterol Sulf [Ventolin Hfa 2 puffs INH Q4H PRN 12/25/17 10/21/18 Inhaler] Atorvastatin Calcium 40 mg PO QPM 12/25/17 10/21/18 Metoprolol Tartrate 150 mg PO BID 12/25/17 10/21/18 Warfarin Sodium [Coumadin] 4 mg PO DAILY 12/25/17 10/21/18 Potassium Chloride 10 meq PO DAILY #0 12/27/17 10/21/18 Spironolactone [Aldactone] 25 mg PO DAILY #30 tablet 12/27/17 10/21/18 - Allergies Allergies/Adverse Reactions: Allergies Allergy/AdvReac Type Severity Reaction Status Date / Time Sulfa (Sulfonamide Allergy Edema Verified 10/21/18 18:57 Antibiotics) Review of Systems - Constitutional Constitutional: denies: Fever, Chills - Eyes Eyes: denies: Blurred vision, Vision loss, Dipolpia - Ears, Nose & Throat Ears, Nose & Throat: denies: Nasal pain, Nasal discharge - Cardiovascular Cariovascular: reports: Irregular heart rate. denies: Chest pain, Edema, Exertional dyspnea, Decr. exercise tolerance - Respiratory Respiratory: reports: Wheezing. denies: Cough, Sputum production - Gastrointestinal Gastrointestinal: denies: Abdominal pain, Abdominal distention, Constipation, Diarrhea, Nausea, Vomiting, Coffee grounds emesis - Genitourinary Genitourinary: denies: Dysuria, Frequency, Urgency - Musculoskeletal Musculoskeletal: denies: Muscle pain, Back pain - Integumentary Integumentary: reports: Rash (mehreen rash in groin area) - Neurological Neurological: reports: Other (intermitten confusion). denies: Headache - Endocrine Endocrine: denies: Polyuria, Polydypsia - Hematologic/Lymphatic Hematologic/Lymphatic: reports: Bruising. denies: Anemia Prior Level of Functionality: Patient annabella alone but her son checks on her regularly. She is on 1-2 L oxygen Nasal canula at home Gets around using walker or cane. She has bee declining lately and will be going to [facility] living in [facility] at the end of this month Exam - Vital Signs Vital Signs: Vital Signs x48h Temp Pulse Resp BP Pulse Ox 10/21/18 21:24 36.2 C L 147 H 33 H 148/92 H 96 10/21/18 21:07 149 H 34 H 137/90 H 93 10/21/18 21:04 145 H 30 H 136/73 H 95 10/21/18 20:57 153 H 27 H 152/101 H 92 10/21/18 20:35 161 H 25 H 147/86 H 93 10/21/18 20:30 151 H 29 H 159/94 H 92 10/21/18 20:21 170 H 133 H 162/78 H 93 10/21/18 20:15 154 H 35 H 165/53 H 97 10/21/18 20:06 144 H 33 H 165/53 H 93 10/21/18 19:09 165 H 17 164/118 H 96 10/21/18 18:52 36.4 C L 101 H 20 164/118 H 99 - Physical Exam General Appearance: positive: No acute distress, Other (awake. intermittent confusion) Eyes Bilateral: positive: Normal inspection, PERRL, EOMI, No scleral icterus ENT: positive: ENT inspection nml, No signs of dehydration Neck: positive: Nml inspection, No JVD, Trachea midline Respiratory: positive: Chest non-tender, Wheezes Cardiovascular: positive: Irregularly irregular, Tachycardia Abdomen: positive: Non-tender, Nml bowel sounds, No distention. negative: Guarding, Rebound Back: positive: Nml inspection Skin: positive: Skin rash (groin area) Extremities: positive: Non-tender, Nml appearance, No pedal edema Neurologic/Psychiatric: positive: Disoriented to person Conclusion/Plan - Problem List (1) Atrial fibrillation with RVR Conclusion/Plan: Likely related to noncompliance Patient forgot to take medications yesterday Patient on diltiazem drip in the ICU Metoprolol 5mg IV given Will resume patient's diltiazem and metoprolol at home dose once rate controlled on IV medication Will hold coumadin because patient currently has supratherapeutic INR at 6.5 Check INR daily. Patient given Vit K 10mcg po once (2) Diastolic CHF, chronic Conclusion/Plan: Not in exacerbation Will resume lasix 80mg po daily and spironolactone 25mg po daily once verified On supplemental potassium On vasotec and metoprolol (3) Hypothyroid Conclusion/Plan: Continue levothyroid at home dose Qualifiers: Hypothyroidism type: unspecified Qualified Code(s): E03.9 - Hypothyroidism, unspecified (4) Hyperlipidemia Conclusion/Plan: On atorvastatin (5) COPD (chronic obstructive pulmonary disease) Conclusion/Plan: Not in exacerbation Will order xopenex prn while tachycardic Qualifiers: COPD type: unspecified COPD Qualified Code(s): J44.9 - Chronic obstructive pulmonary disease, unspecified - Lab Results Fish Bones: 10/21/18 19:09 10/21/18 19:09 Core Measures - Anticipated LOS I expect patient to be DC'd or transferred within 96 hours.: Yes - DVT/VTE - Prophylaxis VTE/DVT Device ordered at admit?: Yes VTE/DVT Prophylaxis med ordered at admit?: Yes
--- NOTE | 2018-10-21 23:23 | XRAY Report ---
Reason: wheezing Procedure Date: 10/21/2018 Accession Number: [id number] / [id number] Procedure: XR - Chest 1 View X-Ray CPT Code: 50417 FULL RESULT: EXAM: CHEST RADIOGRAPHY EXAM DATE: 10/21/2018 10:00 PM. CLINICAL HISTORY: Wheezing. COMPARISON: CHEST 2 VIEW 01/19/2018 1:19 AM. TECHNIQUE: 1 view. FINDINGS: Lungs/Pleura: Increased indistinct pulmonary vascularity. Small left effusion tracking into the major fissure with adjoining lung opacification. No pneumothorax. Mediastinum: Enlarged cardiac silhouette. Other: None. IMPRESSION: Pulmonary edema and small left effusion. Adjoining opacification of the left lower lung likely reflects atelectasis/edema. Underlying infection cannot be excluded. RADIA
[2018-10-22] MEDS ORDERED: FUROSEMIDE 40 MG/4 ML VIAL IVP STA (00:55)
[2018-10-22] MEDS: SODIUM CHLORIDE FLUSH 0.9% 10 ML SYRINGE IVP SCH ×4 (01:10→20:05)
[2018-10-22] MEDS: LEVALBUTEROL 1.25 MG/3 ML NEB INH PRN ×2 (02:21→20:32)
[2018-10-22] MEDS ORDERED: METOPROLOL 5 MG/5 ML VIAL IVP STA (02:36)
[2018-10-22] MEDS: SODIUM CHLORIDE FLUSH 0.9% 10 ML SYRINGE IVP PRN ×2 (02:44→14:10)
[2018-10-22 06:01] LABS: BASOPHILS % (AUTO) 0.6 %; EOSINOPHILS # (AUTO) 0.1 10^3/uL (0.0-0.7); EOSINOPHILS % (AUTO) 1.2 %; HGB - HEMOGLOBIN 11.1 g/dL (12.0-16.0); LYMPHOCYTES # (AUTO) 0.5 10^3/uL (1.5-3.5); LYMPHOCYTES % (AUTO) 9.3 %; MEAN CORPUSCULAR HEMOGLOBIN 30.9 pg (27.0-31.0); MEAN CORPUSCULAR HGB CONC 32.2 g/dL (32.0-36.0); MEAN CORPUSCULAR VOLUME 96.1 fL (81.0-99.0); MEAN PLATELET VOLUME 8.4 fL (7.9-10.8); MONOCYTES # (AUTO) 0.9 10^3/uL (0.0-1.0); MONOCYTES % (AUTO) 14.5 %; NEUTROPHILS # (AUTO) 4.4 10^3/uL (1.5-6.6); NEUTROPHILS % (AUTO) 74.4 %; PLT - PLATELET COUNT 209 10^3/uL (130-450); RED BLOOD COUNT 3.58 10^6/uL (4.20-5.40); RED CELL DISTRIBUTION WIDTH 16.2 % (12.0-15.0); WHITE BLOOD COUNT 5.9 x10^3/uL (4.8-10.8)
[2018-10-22 06:07] LABS: VBG PH 7.511 (7.31-7.41)
[2018-10-22 06:10] LABS: PT - PROTHROMBIN TIME 54.9 secs (9.9-12.6)
[2018-10-22] MEDS: diltiaZEM INJ 125 MG in DEXTROSE 5% 100 ML IV SCH ×3 (06:18→20:04)
[2018-10-22 06:27] LABS: CALCIUM 8.7 mg/dL (8.5-10.3); CREATININE 0.5 mg/dL (0.4-1.0)
[2018-10-22] MEDS: LEVOTHYROXINE 75 MCG TABLET PO SCH (06:36)
[2018-10-22] MEDS ORDERED: diltiaZEM CD 180 MG CAPSULE PO ONE (06:38)
[2018-10-22 06:39] LABS: MAGNESIUM 1.9 mg/dL (1.7-2.8)
--- NOTE | 2018-10-22 08:02 | PROVIDER PROGRESS NOTE ---
Assessment/Plan - Problem List (1) Altered mental status Qualifiers: Altered mental status type: unspecified Qualified Code(s): R41.82 - Altered mental status, unspecified Assessment/Plan: Microangiopathy white matter changes are seen on head CT. The sudden brief starring spells cannot be explained by that however. Continue neuro checks in ICU. Treat CHF for improved (ACROBATIC DANCER) perfusion. If these are brown outs, BP and VS would change. If these are petit mal seizures, she will need EEG and Neuro eval, which we don't have here as an outpt. (2) Atrial fibrillation with RVR Assessment/Plan: Pt on Diltiazem drip and got iv boluses of B-glenna, to decrease HR, now 80- 100. Will resume her Cardizem po and possibly titrate the iv Diltiazem to off. B-glenna to be reconciled and will use Metoprolol Succinate. INR is supratherapeutic, on hold. Follwing INR daily while here. Will address whether she (or son) would prefer her to be on a NOAC and start once INR <2. Will check serial troponins, to R/O CA as cause of RVR. Her TFTs were checked, not excessive to explain RVR. (3) Acute on chronic diastolic heart failure Assessment/Plan: Last Echo was done 12/27, will recheck Echo this admission. Will check serial troponins, to R/O CA as cause of CHF. Continue diuresis and plan for HR control. (4) PVD (peripheral vascular disease) Assessment/Plan: No claudication comlaints on current meds. (5) Anemia Assessment/Plan: Will check B12, Folate, Iron panel and guiac stool. replace if low. Follow CBC daily. (6) Yeast dermatitis Assessment/Plan: In her many skin folds. Nystatin started. (7) Hypothyroid Qualifiers: Hypothyroidism type: unspecified Qualified Code(s): E03.9 - Hypothyroidism, unspecified Assessment/Plan: Pt on her home dose of thyroid replacement and has good TSH. - Current Meds Current Meds: Current Medications Generic Name Dose Route Start Last Admin Trade Name Freq PRN Reason Stop Dose Admin Diltiazem HCl 180 mg 10/22/18 09:00 10/22/18 06:36 Cardizem Cd PO 180 mg DAILY POP Administration Diltiazem HCl 125 mg/ Dextrose 125 mls @ 5 mls/hr 10/21/18 22:00 10/22/18 06:18 IV 15 mg/hr .Q25H POP 15 mls/hr Administration Protocol 5 MG/HR Levalbuterol HCl 1.25 mg 10/21/18 23:32 10/22/18 02:21 Xopenex INH 1.25 mg Q4H PRN Administration Shortness of Air/Wheezing Levothyroxine Sodium 75 mcg 10/22/18 07:00 10/22/18 06:36 Synthroid PO 75 mcg QDAC POP Administration Nystatin 1 applic 10/21/18 22:00 10/21/18 22:32 Nystop TOP 1 applic BID POP Administration Sodium Chloride 10 ml 10/22/18 01:00 10/22/18 01:10 Normal Saline Flush 0.9% IVP 10 ml 0100,0900,1700 POP Administration Sodium Chloride 10 ml 10/21/18 20:56 10/22/18 02:44 Normal Saline Flush 0.9% IVP 10 ml PRN PRN Administration NEEDED PER PROVIDER ORDERS - Lab Result Fish Bone Diagrams: 10/22/18 05:23 10/22/18 05:23 Subjective - Subjective Patient Reports: Resting Comfortably Nursing Reports: No Complaints Objective Vital Signs: Vital Signs - 24 hr 10/21/18 10/21/18 10/21/18 18:52 19:09 20:06 Temperature 36.4 C L Heart Rate 101 H 165 H 144 H Heart Rate [ Monitoring electrodes] Respiratory 20 17 33 H Rate Blood Pressure 164/118 H 164/118 H 165/53 H Blood Pressure [Left Radial artery] Blood Pressure [Right Radial artery] Blood Pressure [Right brachial ] O2 Saturation 99 96 93 10/21/18 10/21/18 10/21/18 20:15 20:21 20:30 Temperature Heart Rate 154 H 170 H 151 H Heart Rate [ Monitoring electrodes] Respiratory 35 H 133 H 29 H Rate Blood Pressure 165/53 H 162/78 H 159/94 H Blood Pressure [Left Radial artery] Blood Pressure [Right Radial artery] Blood Pressure [Right brachial ] O2 Saturation 97 93 92 10/21/18 10/21/18 10/21/18 20:35 20:57 21:04 Temperature Heart Rate 161 H 153 H 145 H Heart Rate [ Monitoring electrodes] Respiratory 25 H 27 H 30 H Rate Blood Pressure 147/86 H 152/101 H 136/73 H Blood Pressure [Left Radial artery] Blood Pressure [Right Radial artery] Blood Pressure [Right brachial ] O2 Saturation 93 92 95 10/21/18 10/21/18 10/21/18 21:07 21:24 22:03 Temperature 36.2 C L 36.5 C Heart Rate 149 H 147 H Heart Rate [ 158 H Monitoring electrodes] Respiratory 34 H 33 H 29 H Rate Blood Pressure 137/90 H 148/92 H Blood Pressure 161/116 H [Left Radial artery] Blood Pressure [Right Radial artery] Blood Pressure [Right brachial ] O2 Saturation 93 96 89 L 10/21/18 10/21/18 10/21/18 22:15 22:31 22:33 Temperature Heart Rate Heart Rate [ 156 H 126 H Monitoring electrodes] Respiratory 23 Rate Blood Pressure 151/95 H Blood Pressure 151/95 H [Left Radial artery] Blood Pressure 135/124 H [Right Radial artery] Blood Pressure [Right brachial ] O2 Saturation 97 10/21/18 10/21/18 10/22/18 23:15 23:20 00:00 Temperature 36.5 C Heart Rate 116 H Heart Rate [ 116 H 116 H Monitoring electrodes] Respiratory 19 19 19 Rate Blood Pressure Blood Pressure [Left Radial artery] Blood Pressure 105/72 132/94 H [Right Radial artery] Blood Pressure [Right brachial ] O2 Saturation 97 94 10/22/18 10/22/18 10/22/18 01:00 02:00 02:21 Temperature Heart Rate 118 H Heart Rate [ 114 H 122 H Monitoring electrodes] Respiratory 23 27 H 12 Rate Blood Pressure Blood Pressure [Left Radial artery] Blood Pressure 104/68 158/139 H [Right Radial artery] Blood Pressure [Right brachial ] O2 Saturation 94 97 10/22/18 10/22/18 10/22/18 02:30 02:43 02:45 Temperature Heart Rate Heart Rate [ 117 H 114 H Monitoring electrodes] Respiratory Rate Blood Pressure 146/115 H Blood Pressure [Left Radial artery] Blood Pressure 146/115 H 189/147 H [Right Radial artery] Blood Pressure [Right brachial ] O2 Saturation 10/22/18 10/22/18 10/22/18 03:00 03:15 04:00 Temperature 36.5 C Heart Rate Heart Rate [ 97 101 H 100 Monitoring electrodes] Respiratory 24 23 26 H Rate Blood Pressure Blood Pressure [Left Radial artery] Blood Pressure 211/193 H [Right Radial artery] Blood Pressure 116/56 L 115/74 [Right brachial ] O2 Saturation 95 95 95 10/22/18 10/22/18 10/22/18 05:00 06:00 07:00 Temperature Heart Rate Heart Rate [ 113 H 106 H 116 H Monitoring electrodes] Respiratory 19 25 H 27 H Rate Blood Pressure Blood Pressure [Left Radial artery] Blood Pressure [Right Radial artery] Blood Pressure 109/69 125/63 134/64 H [Right brachial ] O2 Saturation 95 96 96 Oxygen O2 Source [With Activity] Nasal cannula O2 Source [Without Activity] Nasal cannula O2 Source Nasal cannula Oxygen Flow Rate 2 I&O (Last 24 Hrs): Intake and Output Totals x24h 10/20/18 10/21/18 10/22/18 23:59 23:59 23:59 Intake Total 208.193 5536.25 Output Total 0 Balance 014.857 1408.25 General: Other (Sleeping) HEENT: Mucous membr. moist/pink Neck: Supple Neuro: Other (Lethargic) Cardiovascular: Other (Tachy) Respiratory: No respiratory distress Abdomen: Soft Extremities: No edema - Results Results: Laboratory Results WBC 5.9 x10^3/uL (4.8-10.8) 10/22/18 05:23 RBC 3.58 10^6/uL (4.20-5.40) L 10/22/18 05:23 Hgb 11.1 g/dL (12.0-16.0) L 10/22/18 05:23 Hct 34.4 % (37.0-47.0) L 10/22/18 05:23 MCV 96.1 fL (81.0-99.0) 10/22/18 05:23 MCH 30.9 pg (27.0-31.0) 10/22/18 05:23 MCHC 32.2 g/dL (32.0-36.0) 10/22/18 05:23 RDW 16.2 % (12.0-15.0) H 10/22/18 05:23 Plt Count 209 10^3/uL (130-450) 10/22/18 05:23 MPV 8.4 fL (7.9-10.8) 10/22/18 05:23 Neut # (Auto) 4.4 10^3/uL (1.5-6.6) 10/22/18 05:23 Lymph # (Auto) 0.5 10^3/uL (1.5-3.5) L 10/22/18 05:23 [place] # (Auto) 0.9 10^3/uL (0.0-1.0) 10/22/18 05:23 Eos # (Auto) 0.1 10^3/uL (0.0-0.7) 10/22/18 05:23 Baso # (Auto) 0.0 10^3/uL (0.0-0.1) 10/22/18 05:23 Absolute Nucleated RBC 0.01 x10^3/uL 10/22/18 05:23 Nucleated RBC % 0.1 /100WBC 10/22/18 05:23 PT 54.9 secs (9.9-12.6) H 10/22/18 05:23 INR 5.0 (0.8-1.2) H* 10/22/18 05:23 VBG pH 7.511 (7.31-7.41) H 10/22/18 05:23 Ionized Calcium 1.00 mmol/L (1.15-1.33) L 10/22/18 05:23 Sodium 145 mmol/L (135-145) 10/22/18 05:23 Potassium 3.7 mmol/L (3.5-5.0) 10/22/18 05:23 Chloride 93 mmol/L (101-111) L 10/22/18 05:23 Carbon Dioxide 41 mmol/L (21-32) H* 10/22/18 05:23 Anion Gap 11.0 (6-13) 10/22/18 05:23 BUN 17 mg/dL (6-20) 10/22/18 05:23 Creatinine 0.5 mg/dL (0.4-1.0) 10/22/18 05:23 Estimated GFR (MDRD) 117 (>89) 10/22/18 05:23 Glucose 101 mg/dL (70-100) H 10/22/18 05:23 Calcium 8.7 mg/dL (8.5-10.3) 10/22/18 05:23 Phosphorus 3.0 mg/dL (2.5-4.6) 10/22/18 05:23 Magnesium 1.9 mg/dL (1.7-2.8) 10/22/18 05:23 Total Bilirubin 0.8 mg/dL (0.2-1.0) 10/21/18 19:09 AST 29 IU/L (10-42) 10/21/18 19:09 ALT 20 IU/L (10-60) 10/21/18 19:09 Alkaline Phosphatase 77 IU/L (42-121) 10/21/18 19:09 B-Natriuretic Peptide 158 pg/mL (5-100) H 10/22/18 05:23 Total Protein 7.1 g/dL (6.7-8.2) 10/21/18 19:09 Albumin 3.4 g/dL (3.2-5.5) 10/21/18 19:09 Globulin 3.7 g/dL (2.1-4.2) 10/21/18 19:09 Albumin/Globulin Ratio 0.9 (1.0-2.2) L 10/21/18 19:09 Lipase 24 U/L (22-51) 10/21/18 19:09 TSH 1.17 uIU/mL (0.34-5.60) 10/21/18 21:36 Free T4 1.10 ng/dL (0.58-1.64) 10/21/18 21:36 Urine Color YELLOW 10/21/18 19:45 Urine Clarity CLEAR (CLEAR) 10/21/18 19:45 Urine pH 5.5 PH (5.0-7.5) 10/21/18 19:45 Ur Specific [place] 1.025 (1.002-1.030) 10/21/18 19:45 Urine Protein TRACE mg/dL (NEGATIVE) 10/21/18 19:45 Urine Glucose (UA) NEGATIVE mg/dL (NEGATIVE) 10/21/18 19:45 Urine Ketones 15 mg/dL (NEGATIVE) H 10/21/18 19:45 Urine Occult Blood TRACE-LYSE (NEGATIVE) 10/21/18 19:45 Urine Nitrite NEGATIVE (NEGATIVE) 10/21/18 19:45 Urine Bilirubin NEGATIVE (NEGATIVE) 10/21/18 19:45 Urine Urobilinogen 2 E.U./dL (NORMAL) H 10/21/18 19:45 Ur Leukocyte Esterase NEGATIVE (NEGATIVE) 10/21/18 19:45 Ur Microscopic Review NOT INDICATED 10/21/18 19:45 Urine Culture Comments NOT INDICATED 10/21/18 19:45 Nasal Screen MRSA (PCR) NEGATIVE (NEGATIVE) 10/21/18 21:50
[2018-10-22] MEDS: POTASSIUM CHLORIDE 10 MEQ CAPSULE PO SCH (08:18)
[2018-10-22] MEDS: SPIRONOLACTONE 25 MG TABLET PO SCH (08:18)
[2018-10-22] MEDS: POLYETHYLENE GLYCOL 3350 17 GM PACKET PO SCH (08:19)
[2018-10-22] MEDS ORDERED: FUROSEMIDE 40 MG TABLET PO SCH (09:00)
[2018-10-22] MEDS ORDERED: diltiaZEM CD 180 MG CAPSULE PO SCH (09:00)
[2018-10-22] MEDS ORDERED: METOPROLOL TARTRATE 50 MG TABLET PO SCH (09:00)
[2018-10-22] MEDS: NYSTATIN POWDER 15 GM TOP SCH ×2 (09:58→20:06)
[2018-10-22] MEDS: SENNA 8.6 MG TABLET PO SCH (10:05)
[2018-10-22] MEDS: DOCUSATE SODIUM 250 MG CAPSULE PO SCH (10:05)
[2018-10-22] MEDS: ENALAPRIL 5 MG TABLET PO SCH ×2 (12:48→20:04)
[2018-10-22] MEDS: FUROSEMIDE 40 MG/4 ML VIAL IVP SCH (14:10)
[2018-10-22] MEDS: ATORVASTATIN 40 MG TABLET PO SCH (20:04)
[2018-10-22] MEDS: METOPROLOL SUCCINATE 50 MG TABLET PO SCH (20:04)
[2018-10-23] MEDS: diltiaZEM INJ 125 MG in DEXTROSE 5% 100 ML IV SCH ×2 (03:23→20:59)
[2018-10-23 05:55] LABS: BASOPHILS % (AUTO) 0.6 %; EOSINOPHILS # (AUTO) 0.1 10^3/uL (0.0-0.7); EOSINOPHILS % (AUTO) 2.2 %; HGB - HEMOGLOBIN 10.5 g/dL (12.0-16.0); LYMPHOCYTES # (AUTO) 0.8 10^3/uL (1.5-3.5); LYMPHOCYTES % (AUTO) 14.1 %; MEAN CORPUSCULAR HEMOGLOBIN 30.8 pg (27.0-31.0); MEAN CORPUSCULAR HGB CONC 32.1 g/dL (32.0-36.0); MEAN PLATELET VOLUME 7.9 fL (7.9-10.8); MONOCYTES # (AUTO) 0.8 10^3/uL (0.0-1.0); MONOCYTES % (AUTO) 13.7 %; NEUTROPHILS % (AUTO) 69.4 %; PLT - PLATELET COUNT 212 10^3/uL (130-450); RED BLOOD COUNT 3.42 10^6/uL (4.20-5.40); RED CELL DISTRIBUTION WIDTH 16.1 % (12.0-15.0); WHITE BLOOD COUNT 5.8 x10^3/uL (4.8-10.8)
[2018-10-23 05:56] LABS: INR 1.4 (0.8-1.2); PT - PROTHROMBIN TIME 15.9 secs (9.9-12.6)
[2018-10-23 06:20] LABS: CALCIUM 8.6 mg/dL (8.5-10.3); CREATININE 0.6 mg/dL (0.4-1.0); MAGNESIUM 1.9 mg/dL (1.7-2.8); PHOSPHORUS 3.3 mg/dL (2.5-4.6)
[2018-10-23 06:22] LABS: VBG PH 7.329 (7.31-7.41)
[2018-10-23] MEDS: LEVOTHYROXINE 75 MCG TABLET PO SCH (06:23)
[2018-10-23] MEDS: FUROSEMIDE 40 MG/4 ML VIAL IVP SCH ×2 (06:23→14:32)
[2018-10-23] MEDS: SODIUM CHLORIDE FLUSH 0.9% 10 ML SYRINGE IVP PRN (06:23)
[2018-10-23 06:35] LABS: FOLATE 21.12 ng/mL (5.90 - >24.8)
[2018-10-23] MEDS: LEVALBUTEROL 1.25 MG/3 ML NEB INH PRN (06:45)
[2018-10-23] MEDS ORDERED: POTASSIUM CHLORIDE 20 MEQ TABLET PO SCH (07:52)
[2018-10-23] MEDS: POTASSIUM CHLORIDE 10 MEQ CAPSULE PO SCH (08:03)
[2018-10-23] MEDS: SENNA 8.6 MG TABLET PO SCH (08:16)
[2018-10-23] MEDS: DOCUSATE SODIUM 250 MG CAPSULE PO SCH (08:17)
[2018-10-23] MEDS: diltiaZEM CD 180 MG CAPSULE PO SCH (08:18)
[2018-10-23] MEDS: SPIRONOLACTONE 25 MG TABLET PO SCH (08:19)
[2018-10-23] MEDS: SODIUM CHLORIDE FLUSH 0.9% 10 ML SYRINGE IVP SCH ×3 (08:19→22:05)
[2018-10-23] MEDS: POLYETHYLENE GLYCOL 3350 17 GM PACKET PO SCH (08:19)
[2018-10-23] MEDS: NYSTATIN POWDER 15 GM TOP SCH ×2 (08:29→20:58)
--- NOTE | 2018-10-23 09:18 | PROVIDER PROGRESS NOTE ---
Assessment/Plan - Problem List (1) Altered mental status Qualifiers: Altered mental status type: unspecified Qualified Code(s): R41.82 - Altered mental status, unspecified Assessment/Plan: Lethargic but arousable. This may her basline of mild dementia and weakness. Will try OOB to chair, once the Diltiazem drip is off. (2) Atrial fibrillation with RVR Assessment/Plan: Heart rate getting better, and transitioning iv Diltizem drip to oral long acting form plus B-glenna which is at max dose already. INR has dropped <2. Will resume her home dose of Coumadin today. (3) Acute on chronic diastolic heart failure Assessment/Plan: Echo shows diastolic dysfunction. She is comfortable, supine in bed. Will transition iv to po Lasix. Follow BMP and Mg daily. (4) Cor pulmonale Assessment/Plan: Possibly secondary to LV diastolic failure, or due to tachycardia, or from unknown underlying pulmonary disease (?asthma, COPD, sleep apnea or hypopnea). Will try Diamox. Continue her po Spironolactone plus loop diuretic. (5) Severe pulmonary arterial systolic hypertension Assessment/Plan: As in #4 (6) Hypokalemia Assessment/Plan: Related to diuresis. Replace and follow daily BMP. (7) Anemia Assessment/Plan: Her labs showed no deficiency of B12, Folate or Iron. Possibly hemodilutuonal from her volume overload. Will check vit D level also. (8) Yeast dermatitis Assessment/Plan: Continue topical treatment. (9) Hypothyroid Qualifiers: Hypothyroidism type: unspecified Qualified Code(s): E03.9 - Hypothyroidism, unspecified Assessment/Plan: Continue home meds (10) PVD (peripheral vascular disease) Assessment/Plan: Stable - Current Meds Current Meds: Current Medications Generic Name Dose Route Start Last Admin Trade Name Freq PRN Reason Stop Dose Admin Atorvastatin Calcium 40 mg 10/22/18 21:00 10/22/18 20:04 Lipitor PO 40 mg QPM POP Administration Diltiazem HCl 360 mg 10/23/18 09:00 10/23/18 08:18 Cardizem Cd PO 360 mg DAILY POP Administration Docusate Sodium 250 - 500 mg 10/22/18 10:00 10/23/18 08:17 Colace 250mg Capsule PO 500 mg DAILY POP Administration Enalapril Maleate 5 mg 10/22/18 09:00 10/22/18 20:04 Vasotec PO 5 mg BID POP Administration Furosemide 40 mg 10/22/18 14:00 10/23/18 06:23 Lasix Inj 40 Mg Vial IVP 40 mg BIDDIURETIC POP Administration Diltiazem HCl 125 mg/ Dextrose 125 mls @ 5 mls/hr 10/22/18 18:21 10/23/18 07:45 IV 5 mg/hr .Q25H POP 5 mls/hr Titration Protocol 5 MG/HR Levalbuterol HCl 1.25 mg 10/21/18 23:32 10/23/18 06:45 Xopenex INH 1.25 mg Q4H PRN Administration Shortness of Air/Wheezing Levothyroxine Sodium 75 mcg 10/22/18 07:00 10/23/18 06:23 Synthroid PO 75 mcg QDAC POP Administration Metoprolol Succinate 100 mg 10/22/18 21:00 10/22/18 20:04 Toprol Xl PO 100 mg BID POP Administration Nystatin 1 applic 10/21/18 22:00 10/23/18 08:29 Nystop TOP 1 applic BID POP Administration Polyethylene Glycol 17 gm 10/22/18 09:00 10/23/18 08:19 Miralax PO 17 gm DAILY POP Administration Potassium Chloride 10 meq 10/22/18 09:00 10/23/18 08:03 Micro-K PO Not Given DAILY POP Senna 8.6 - 17.2 mg 10/22/18 10:00 10/23/18 08:16 Senokot PO 17.2 mg DAILY POP Administration Sodium Chloride 10 ml 10/22/18 01:00 10/23/18 08:19 Normal Saline Flush 0.9% IVP 10 ml 0100,0900,1700 POP Administration Sodium Chloride 10 ml 10/21/18 20:56 10/23/18 06:23 Normal Saline Flush 0.9% IVP 10 ml PRN PRN Administration NEEDED PER PROVIDER ORDERS Spironolactone 25 mg 10/22/18 09:00 10/23/18 08:19 Aldactone PO 25 mg DAILY POP Administration - Lab Result Fish Bone Diagrams: 10/23/18 05:16 10/23/18 05:16 - Additional Planning My Orders: My Active Orders 10/22/18 10:00 Docusate Sodium 250Mg Capsule [Colace 250Mg Capsule] 250 - 500 mg PO DAILY Senna [Senokot] 8.6 - 17.2 mg PO DAILY 10/22/18 14:00 FUROSEMIDE INJ 40mg VIAL [LASIX INJ 40 mg VIAL] 40 mg IVP BIDDIURETIC 10/22/18 18:21 Dextrose 5% [D5w] 100 ml diltiaZEM INJ [Cardizem Inj] 125 mg IV 5 mg/hr 10/22/18 21:00 Metoprolol Succinate [Toprol Xl] 100 mg PO BID 10/23/18 09:00 diltiaZEM CD [Cardizem Cd] 360 mg PO DAILY 10/23/18 14:00 Warfarin [Coumadin] 4 mg PO 1400 Subjective - Subjective Patient Reports: Feeling Better, Resting Comfortably, Fatigue, Other (She was awake enough to tell me that she "just sat around and didn't feed herself, for 2 days", and doesn't know why.) Objective Vital Signs: Vital Signs - 24 hr 10/22/18 10/22/18 10/22/18 09:30 09:45 10:00 Temperature Heart Rate Heart Rate [ 77 70 88 Monitoring electrodes] Respiratory 23 20 20 Rate Blood Pressure 85/62 L 91/63 105/67 [Right brachial ] O2 Saturation 93 96 96 10/22/18 10/22/18 10/22/18 10:30 11:00 11:30 Temperature Heart Rate Heart Rate [ 82 80 93 Monitoring electrodes] Respiratory 18 17 20 Rate Blood Pressure 103/68 114/64 104/78 [Right brachial ] O2 Saturation 96 96 94 10/22/18 10/22/18 10/22/18 11:58 13:00 14:00 Temperature 36.4 C L Heart Rate Heart Rate [ 98 102 H 88 Monitoring electrodes] Respiratory 25 H 28 H 21 Rate Blood Pressure 112/75 119/75 105/91 H [Right brachial ] O2 Saturation 96 96 96 10/22/18 10/22/18 10/22/18 15:00 16:00 17:00 Temperature 36.5 C Heart Rate Heart Rate [ 131 H 94 99 Monitoring electrodes] Respiratory 36 H 23 21 Rate Blood Pressure 128/83 H 106/88 H 117/78 [Right brachial ] O2 Saturation 95 96 95 10/22/18 10/22/18 10/22/18 17:30 18:00 19:00 Temperature Heart Rate Heart Rate [ 121 H 115 H 109 H Monitoring electrodes] Respiratory 31 H 25 H 33 H Rate Blood Pressure 107/87 H 114/62 126/85 H [Right brachial ] O2 Saturation 95 95 95 10/22/18 10/22/18 10/22/18 19:30 20:32 21:00 Temperature 36.6 C Heart Rate 99 Heart Rate [ 98 Monitoring electrodes] Respiratory 19 25 H Rate Blood Pressure 104/65 [Right brachial ] O2 Saturation 95 10/22/18 10/22/18 10/22/18 21:05 21:10 21:15 Temperature Heart Rate Heart Rate [ 99 101 H 101 H Monitoring electrodes] Respiratory Rate Blood Pressure 99/65 104/55 L 106/51 L [Right brachial ] O2 Saturation 10/22/18 10/22/18 10/22/18 21:20 21:30 21:46 Temperature Heart Rate Heart Rate [ 98 101 H 111 H Monitoring electrodes] Respiratory Rate Blood Pressure 115/56 L 100/82 H 99/66 [Right brachial ] O2 Saturation 10/22/18 10/22/18 10/23/18 22:00 23:00 00:00 Temperature 36.5 C Heart Rate Heart Rate [ 102 H 103 H 117 H Monitoring electrodes] Respiratory 24 28 H Rate Blood Pressure 101/68 96/53 L 110/75 [Right brachial ] O2 Saturation 95 97 10/23/18 10/23/18 10/23/18 01:00 02:00 02:15 Temperature Heart Rate Heart Rate [ 102 H 110 H 108 H Monitoring electrodes] Respiratory 28 H 22 Rate Blood Pressure 117/79 123/64 111/69 [Right brachial ] O2 Saturation 98 96 10/23/18 10/23/18 10/23/18 02:30 02:45 03:24 Temperature 36.6 C Heart Rate Heart Rate [ 112 H 103 H 106 H Monitoring electrodes] Respiratory 21 Rate Blood Pressure 105/64 101/63 109/64 [Right brachial ] O2 Saturation 96 10/23/18 10/23/18 10/23/18 04:00 05:00 06:00 Temperature Heart Rate Heart Rate [ 98 94 110 H Monitoring electrodes] Respiratory 28 H 24 23 Rate Blood Pressure 107/72 114/68 110/73 [Right brachial ] O2 Saturation 97 98 97 10/23/18 10/23/18 07:00 08:00 Temperature 36.5 C Heart Rate Heart Rate [ 100 103 H Monitoring electrodes] Respiratory 25 H 28 H Rate Blood Pressure 95/63 114/81 H [Right brachial ] O2 Saturation 100 96 Oxygen O2 Source [With Activity] Nasal cannula O2 Source [Without Activity] Nasal cannula O2 Source Nasal cannula Oxygen Flow Rate 2 I&O (Last 24 Hrs): Intake and Output Totals x24h 10/21/18 10/22/18 10/23/18 23:59 23:59 23:59 Intake Total 717.509 8995.100 741.000 Output Total 650 100 Balance 686.030 9498.100 641.000 General: Alert, Other (Lethargic and closes eyes after answering.) HEENT: Mucous membr. moist/pink, Other (Disheveled. Has very deep masculine voice or is hoarse.) Neck: Supple Neuro: Non Focal, Other (Lethargic) Cardiovascular: Regular rate, No murmurs, Other (Tachy) Respiratory: No respiratory distress, Breath sounds nml Abdomen: Soft Extremities: Other (1+ edema) - Results Results: Laboratory Results WBC 5.8 x10^3/uL (4.8-10.8) 10/23/18 05:16 RBC 3.42 10^6/uL (4.20-5.40) L 10/23/18 05:16 Hgb 10.5 g/dL (12.0-16.0) L 10/23/18 05:16 Hct 32.8 % (37.0-47.0) L 10/23/18 05:16 MCV 96.0 fL (81.0-99.0) 10/23/18 05:16 MCH 30.8 pg (27.0-31.0) 10/23/18 05:16 MCHC 32.1 g/dL (32.0-36.0) 10/23/18 05:16 RDW 16.1 % (12.0-15.0) H 10/23/18 05:16 Plt Count 212 10^3/uL (130-450) 10/23/18 05:16 MPV 7.9 fL (7.9-10.8) 10/23/18 05:16 Neut # (Auto) 4.0 10^3/uL (1.5-6.6) 10/23/18 05:16 Lymph # (Auto) 0.8 10^3/uL (1.5-3.5) L 10/23/18 05:16 [place] # (Auto) 0.8 10^3/uL (0.0-1.0) 10/23/18 05:16 Eos # (Auto) 0.1 10^3/uL (0.0-0.7) 10/23/18 05:16 Baso # (Auto) 0.0 10^3/uL (0.0-0.1) 10/23/18 05:16 Absolute Nucleated RBC 0.01 x10^3/uL 10/23/18 05:16 Nucleated RBC % 0.1 /100WBC 10/23/18 05:16 PT 15.9 secs (9.9-12.6) H 10/23/18 05:16 INR 1.4 (0.8-1.2) H 10/23/18 05:16 VBG pH 7.329 (7.31-7.41) 10/23/18 05:16 Ionized Calcium 1.11 mmol/L (1.15-1.33) L 10/23/18 05:16 Sodium 138 mmol/L (135-145) 10/23/18 05:16 Potassium 3.4 mmol/L (3.5-5.0) L 10/23/18 05:16 Chloride 90 mmol/L (101-111) L 10/23/18 05:16 Carbon Dioxide 44 mmol/L (21-32) H* 10/23/18 05:16 Anion Gap 4.0 (6-13) L 10/23/18 05:16 BUN 16 mg/dL (6-20) 10/23/18 05:16 Creatinine 0.6 mg/dL (0.4-1.0) 10/23/18 05:16 Estimated GFR (MDRD) 95 (>89) 10/23/18 05:16 Glucose 99 mg/dL (70-100) 10/23/18 05:16 Calcium 8.6 mg/dL (8.5-10.3) 10/23/18 05:16 Phosphorus 3.3 mg/dL (2.5-4.6) 10/23/18 05:16 Magnesium 1.9 mg/dL (1.7-2.8) 10/23/18 05:16 Iron 70 ug/dL (28-170) 10/23/18 05:16 TIBC 361 ug/dL (250-450) 10/23/18 05:16 % Saturation 19 % (20-50) L 10/23/18 05:16 Transferrin 258 mg/dL (192-382) 10/23/18 05:16 Total Bilirubin 0.8 mg/dL (0.2-1.0) 10/21/18 19:09 AST 29 IU/L (10-42) 10/21/18 19:09 ALT 20 IU/L (10-60) 10/21/18 19:09 Alkaline Phosphatase 77 IU/L (42-121) 10/21/18 19:09 Troponin I < 0.04 ng/mL (<0.49) 10/22/18 14:08 B-Natriuretic Peptide 158 pg/mL (5-100) H 10/22/18 05:23 Total Protein 7.1 g/dL (6.7-8.2) 10/21/18 19:09 Albumin 3.4 g/dL (3.2-5.5) 10/21/18 19:09 Globulin 3.7 g/dL (2.1-4.2) 10/21/18 19:09 Albumin/Globulin Ratio 0.9 (1.0-2.2) L 10/21/18 19:09 Lipase 24 U/L (22-51) 10/21/18 19:09 Vitamin B12 1186 pg/mL (180-914) H 10/23/18 05:16 Folate 21.12 ng/mL (5.90 - >24.8) 10/23/18 05:16 TSH 1.17 uIU/mL (0.34-5.60) 10/21/18 21:36 Free T4 1.10 ng/dL (0.58-1.64) 10/21/18 21:36 Urine Color YELLOW 10/21/18 19:45 Urine Clarity CLEAR (CLEAR) 10/21/18 19:45 Urine pH 5.5 PH (5.0-7.5) 10/21/18 19:45 Ur Specific [place] 1.025 (1.002-1.030) 10/21/18 19:45 Urine Protein TRACE mg/dL (NEGATIVE) 10/21/18 19:45 Urine Glucose (UA) NEGATIVE mg/dL (NEGATIVE) 10/21/18 19:45 Urine Ketones 15 mg/dL (NEGATIVE) H 10/21/18 19:45 Urine Occult Blood TRACE-LYSE (NEGATIVE) 10/21/18 19:45 Urine Nitrite NEGATIVE (NEGATIVE) 10/21/18 19:45 Urine Bilirubin NEGATIVE (NEGATIVE) 10/21/18 19:45 Urine Urobilinogen 2 E.U./dL (NORMAL) H 10/21/18 19:45 Ur Leukocyte Esterase NEGATIVE (NEGATIVE) 10/21/18 19:45 Ur Microscopic Review NOT INDICATED 10/21/18 19:45 Urine Culture Comments NOT INDICATED 10/21/18 19:45 Nasal Screen MRSA (PCR) NEGATIVE (NEGATIVE) 10/21/18 21:50
[2018-10-23] MEDS: acetaZOLAMIDE 250 MG TABLET PO SCH (10:27)
[2018-10-23] MEDS: METOPROLOL SUCCINATE 50 MG TABLET PO SCH ×2 (10:29→20:58)
[2018-10-23] MEDS: ENALAPRIL 5 MG TABLET PO SCH ×2 (12:08→22:05)
[2018-10-23] MEDS ORDERED: MAGNESIUM HYDROXIDE 2,400 MG/30 ML UDC PO SCH (14:29)
[2018-10-23] MEDS: WARFARIN 1 MG TABLET PO SCH (14:32)
--- NOTE | 2018-10-23 18:29 | ADVANCE CARE PLANNING NOTE ---
Advance Care Planning - Date/Time Date: 10/23/18 Time: 13:40 - Purpose of encounter Text: To determine patient's Code wishes and complete a POLST form - Parties in attendance Parties in attendance: I spoke with the patient in her bed - Decisional capacity Decisional capacity of: She has full capacity to make decisions, remembered details with a few mistakes only, in her recent history - Subjective/Patient's story Subjective/Patient's story: The patient lives alone in her own apartment. Her grandson lives in the same apartment complex. She has a son who lives on the [place] and a daughter who lives in [facility]. The son checks on the mother daily. The children and patient have decided that she can no longer live alone, as she is "failing", therefore they have arranged for her to start living in a facility in [place], [place] starting November 09. Patient presented with obtundation, remembers that she did not feed herself or drink anything and just sat in one place on her couch for 2 days. She does not know why she did this. The patient requests "no heroic measures", and wants this to continue at her new upcoming living situation. - Objective/Medical story Objective/Medical Story: The patient presented with confusion, lethargy, short of breath, and in A. fib with RVR and in CHF. It probably was caused by her not taking her medications for those past 2 days, as she described. Her heart rate has been controlled with IV diltiazem, which was transitioned to oral and she had two days of IV diuretics, transitioned to oral and she has improved significantly. PT will start tomorrow. She first thought that she would be going straight from here to the new facility , and told our health social work professor that she will be "moving in four days". I reminded her that November 09 is still 2 weeks away and then she agreed with me that she would therefore need to go home first and move into the new facility in several weeks yet. - Goals of Care Goals of care determinations: She is excited about her future move into that living facility, verbalizes that she wants to be a DNR, agrees to take her medications and is unsure why she did not take care of herself for those 2 days. - Plan Plan: A POLST will be completed and signed by the patient and myself, she was already ordered to be a DNR. - Code Status Code Status: Do Not Attempt Resuscitation - Time Spent on Advance Care Planning Time spent on advance care plannin min
[2018-10-23] MEDS: ATORVASTATIN 40 MG TABLET PO SCH (20:58)
[2018-10-24 05:51] LABS: BASOPHILS % (AUTO) 0.5 %; EOSINOPHILS # (AUTO) 0.1 10^3/uL (0.0-0.7); EOSINOPHILS % (AUTO) 2.4 %; HGB - HEMOGLOBIN 11.1 g/dL (12.0-16.0); LYMPHOCYTES # (AUTO) 0.9 10^3/uL (1.5-3.5); LYMPHOCYTES % (AUTO) 13.9 %; MEAN CORPUSCULAR HEMOGLOBIN 30.3 pg (27.0-31.0); MEAN CORPUSCULAR HGB CONC 31.3 g/dL (32.0-36.0); MEAN CORPUSCULAR VOLUME 96.9 fL (81.0-99.0); MEAN PLATELET VOLUME 8.3 fL (7.9-10.8); MONOCYTES # (AUTO) 0.9 10^3/uL (0.0-1.0); MONOCYTES % (AUTO) 14.4 %; NEUTROPHILS # (AUTO) 4.2 10^3/uL (1.5-6.6); NEUTROPHILS % (AUTO) 68.8 %; PLT - PLATELET COUNT 230 10^3/uL (130-450); RED BLOOD COUNT 3.66 10^6/uL (4.20-5.40); RED CELL DISTRIBUTION WIDTH 16.3 % (12.0-15.0); WHITE BLOOD COUNT 6.1 x10^3/uL (4.8-10.8)
[2018-10-24 05:52] LABS: VBG PH 7.375 (7.31-7.41)
[2018-10-24 05:53] LABS: INR 1.2 (0.8-1.2); PT - PROTHROMBIN TIME 13.9 secs (9.9-12.6)
[2018-10-24 06:13] LABS: CALCIUM 9.1 mg/dL (8.5-10.3); CREATININE 0.6 mg/dL (0.4-1.0); MAGNESIUM 2.1 mg/dL (1.7-2.8)
[2018-10-24] MEDS: FUROSEMIDE 40 MG/4 ML VIAL IVP SCH (06:30)
[2018-10-24] MEDS: LEVOTHYROXINE 75 MCG TABLET PO SCH (06:30)
[2018-10-24] MEDS: SENNA 8.6 MG TABLET PO SCH (07:32)
[2018-10-24] MEDS: DOCUSATE SODIUM 250 MG CAPSULE PO SCH (07:32)
[2018-10-24] MEDS: acetaZOLAMIDE 250 MG TABLET PO SCH (08:32)
[2018-10-24] MEDS: POLYETHYLENE GLYCOL 3350 17 GM PACKET PO SCH (08:32)
[2018-10-24] MEDS: diltiaZEM CD 180 MG CAPSULE PO SCH (08:33)
[2018-10-24] MEDS: SPIRONOLACTONE 25 MG TABLET PO SCH (08:34)
[2018-10-24] MEDS: SODIUM CHLORIDE FLUSH 0.9% 10 ML SYRINGE IVP SCH ×2 (08:34→17:00)
[2018-10-24] MEDS: POTASSIUM CHLORIDE 10 MEQ CAPSULE PO SCH (08:34)
[2018-10-24] MEDS: METOPROLOL SUCCINATE 50 MG TABLET PO SCH ×2 (08:35→20:21)
[2018-10-24] MEDS: NYSTATIN POWDER 15 GM TOP SCH ×2 (08:37→20:26)
[2018-10-24] MEDS: ENALAPRIL 5 MG TABLET PO SCH (10:52)
--- NOTE | 2018-10-24 11:25 | PROVIDER PROGRESS NOTE ---
Assessment/Plan - Problem List (1) Altered mental status Qualifiers: Altered mental status type: unspecified Qualified Code(s): R41.82 - Altered mental status, unspecified Assessment/Plan: These are the kind of events that were happening in her apartment that the son brought her in for. This appeared to be an absence-type spell to me. I reviewed the entire case with the on-call Neurologist at [facility], Dr. Cordoba. Dr. Cordoba indicated that this sounds like a petit mal seizure and that since we do not have EEG capability here, start empiric treatment with Keppra, 750 mg po bid. The patient will have a brain MRI, as well, pending at 5 pm today. The impression of Dr. Cordoba was that, at this age, new onset of seizures is associated with a CVA or a brain tumor or is seen rarely (in 5%) of dementia patients. Remain in ICU. Neuro checks q2h. (2) Acute on chronic diastolic heart failure Assessment/Plan: No dyspnea, even when she is supine, as of yesterday. Continue HR control and gentle diuresis with po Lasix. (3) Atrial fibrillation with RVR Assessment/Plan: Continue increased doses of beta-glenna for rate control. Continue INR, if no brain MRI signs of hemorrhage. Follow INR daily. (4) Cor pulmonale Assessment/Plan: Continue loop diuretic and Spironolactone. (5) Yeast dermatitis Assessment/Plan: Continue topical treatment. (6) Hypothyroidism Assessment/Plan: Continue her home thyroid med. (7) COPD (chronic obstructive pulmonary disease) Qualifiers: COPD type: unspecified COPD Qualified Code(s): J44.9 - Chronic obstructive pulmonary disease, unspecified Assessment/Plan: She has no active wheezing or sequalae such as increased AP diameter, but has chronic CO2 retention on labs. (8) Anemia Assessment/Plan: This is felt to be hemodilutional or anemia of chronic disease, as she does not have iron deficiency, B12 or folate deficiency. Follow CBC daily - Current Meds Current Meds: Current Medications Generic Name Dose Route Start Last Admin Trade Name Freq PRN Reason Stop Dose Admin Acetazolamide 250 mg 10/23/18 10:00 10/24/18 08:32 Diamox PO 250 mg DAILY POP Administration Atorvastatin Calcium 40 mg 10/22/18 21:00 10/23/18 20:58 Lipitor PO 40 mg QPM POP Administration Docusate Sodium 250 - 500 mg 10/22/18 10:00 10/24/18 07:32 Colace 250mg Capsule PO Not Given DAILY POP Levalbuterol HCl 1.25 mg 10/21/18 23:32 10/23/18 06:45 Xopenex INH 1.25 mg Q4H PRN Administration Shortness of Air/Wheezing Levothyroxine Sodium 75 mcg 10/22/18 07:00 10/24/18 06:30 Synthroid PO 75 mcg QDAC POP Administration Metoprolol Succinate 100 mg 10/22/18 21:00 10/24/18 08:35 Toprol Xl PO 100 mg BID POP Administration Nystatin 1 applic 10/21/18 22:00 10/24/18 08:37 Nystop TOP 1 applic BID POP Administration Polyethylene Glycol 17 gm 10/22/18 09:00 10/24/18 08:32 Miralax PO 17 gm DAILY POP Administration Potassium Chloride 10 meq 10/22/18 09:00 10/24/18 08:34 Micro-K PO 10 meq DAILY POP Administration Senna 8.6 - 17.2 mg 10/22/18 10:00 10/24/18 07:32 Senokot PO Not Given DAILY POP Sodium Chloride 10 ml 10/22/18 01:00 10/24/18 08:34 Normal Saline Flush 0.9% IVP 10 ml 0100,0900,1700 POP Administration Sodium Chloride 10 ml 10/21/18 20:56 10/23/18 06:23 Normal Saline Flush 0.9% IVP 10 ml PRN PRN Administration NEEDED PER PROVIDER ORDERS Spironolactone 25 mg 10/22/18 09:00 10/24/18 08:34 Aldactone PO 25 mg DAILY POP Administration Warfarin Sodium 4 mg 10/23/18 14:00 10/23/18 14:32 Coumadin PO 4 mg 1400 POP Administration - Lab Result Fish Bone Diagrams: 10/24/18 05:09 10/24/18 05:09 - Additional Planning My Orders: My Active Orders 10/23/18 14:00 Warfarin [Coumadin] 4 mg PO 1400 10/24/18 Evaluate and Treat OT [OT] Routine Evaluate and Treat PT [PT] Routine 10/25/18 09:00 diltiaZEM CD [Cardizem Cd] 240 mg PO DAILY Subjective - Subjective Patient Reports: Other (Back pain) Nursing Reports: Other (At 11;25 am, she became unresponsive: No response to name, staring straight ahead, BP 109, HT 70-80 in Afib, O2 sat 100% on r.a., RR 20. I performed a sternal rub and she awoke, startled, looked at me, was able to squeeze and follow commands.) Objective Vital Signs: Vital Signs - 24 hr 10/23/18 10/23/18 10/23/18 12:00 14:00 15:00 Temperature 36.3 C L Heart Rate Heart Rate [ 101 H 90 91 Monitoring electrodes] Respiratory 31 H 32 H 91 H Rate Blood Pressure 105/87 H 112/66 101/73 [Right brachial ] O2 Saturation 96 98 97 10/23/18 10/23/18 10/23/18 16:00 17:00 18:00 Temperature 36.3 C L Heart Rate Heart Rate [ 95 70 96 Monitoring electrodes] Respiratory 24 23 25 H Rate Blood Pressure 112/75 116/79 120/70 [Right brachial ] O2 Saturation 96 100 93 10/23/18 10/23/18 10/23/18 19:00 20:00 20:20 Temperature Heart Rate 87 Heart Rate [ 101 H 99 Monitoring electrodes] Respiratory 23 33 H 24 Rate Blood Pressure 92/76 116/72 [Right brachial ] O2 Saturation 94 97 10/23/18 10/23/18 10/23/18 21:00 22:00 23:00 Temperature 36.8 C Heart Rate Heart Rate [ 103 H 92 89 Monitoring electrodes] Respiratory 31 H 28 H 25 H Rate Blood Pressure 113/75 115/76 107/69 [Right brachial ] O2 Saturation 97 100 96 10/24/18 10/24/18 10/24/18 00:00 01:00 02:00 Temperature 35.8 C L Heart Rate Heart Rate [ 80 82 78 Monitoring electrodes] Respiratory 23 15 22 Rate Blood Pressure 100/80 121/65 125/73 [Right brachial ] O2 Saturation 96 98 99 10/24/18 10/24/18 10/24/18 03:00 04:00 05:00 Temperature 35.7 C L Heart Rate Heart Rate [ 70 71 86 Monitoring electrodes] Respiratory 22 23 21 Rate Blood Pressure 109/72 118/67 108/93 H [Right brachial ] O2 Saturation 98 100 100 10/24/18 10/24/18 10/24/18 06:00 07:00 08:00 Temperature 36.4 C L Heart Rate Heart Rate [ 74 64 108 H Monitoring electrodes] Respiratory 25 H 25 H 25 H Rate Blood Pressure 118/82 H 129/77 121/86 H [Right brachial ] O2 Saturation 99 99 100 10/24/18 10/24/18 10/24/18 09:00 10:00 11:00 Temperature Heart Rate Heart Rate [ 96 90 68 Monitoring electrodes] Respiratory 23 27 H 21 Rate Blood Pressure 116/67 96/56 L 105/65 [Right brachial ] O2 Saturation 100 98 99 Oxygen O2 Source [With Activity] Nasal cannula O2 Source [Without Activity] Nasal cannula O2 Source Nasal cannula Oxygen Flow Rate 2 I&O (Last 24 Hrs): Intake and Output Totals x24h 10/22/18 10/23/18 10/24/18 23:59 23:59 23:59 Intake Total 2857.100 1589.750 390 Output Total 650 900 530 Balance 2207.100 689.750 -140 General: Other (Obtunded, even when answering her RN, she is forgetting previous answers. Disoriented, unlike yesterday when she was oriented x3.) HEENT: Mucous membr. moist/pink, Other (Pale.) Neck: Supple, No JVD Neuro: Disoriented, Non Focal Cardiovascular: No murmurs Respiratory: No respiratory distress, Breath sounds nml Abdomen: Soft Extremities: No edema - Results Results: Laboratory Results WBC 6.1 x10^3/uL (4.8-10.8) 10/24/18 05:09 RBC 3.66 10^6/uL (4.20-5.40) L 10/24/18 05:09 Hgb 11.1 g/dL (12.0-16.0) L 10/24/18 05:09 Hct 35.5 % (37.0-47.0) L 10/24/18 05:09 MCV 96.9 fL (81.0-99.0) 10/24/18 05:09 MCH 30.3 pg (27.0-31.0) 10/24/18 05:09 MCHC 31.3 g/dL (32.0-36.0) L 10/24/18 05:09 RDW 16.3 % (12.0-15.0) H 10/24/18 05:09 Plt Count 230 10^3/uL (130-450) 10/24/18 05:09 MPV 8.3 fL (7.9-10.8) 10/24/18 05:09 Neut # (Auto) 4.2 10^3/uL (1.5-6.6) 10/24/18 05:09 Lymph # (Auto) 0.9 10^3/uL (1.5-3.5) L 10/24/18 05:09 [place] # (Auto) 0.9 10^3/uL (0.0-1.0) 10/24/18 05:09 Eos # (Auto) 0.1 10^3/uL (0.0-0.7) 10/24/18 05:09 Baso # (Auto) 0.0 10^3/uL (0.0-0.1) 10/24/18 05:09 Absolute Nucleated RBC 0.01 x10^3/uL 10/24/18 05:09 Nucleated RBC % 0.1 /100WBC 10/24/18 05:09 PT 13.9 secs (9.9-12.6) H 10/24/18 05:09 INR 1.2 (0.8-1.2) 10/24/18 05:09 VBG pH 7.375 (7.31-7.41) 10/24/18 05:09 Ionized Calcium 1.11 mmol/L (1.15-1.33) L 10/24/18 05:09 Sodium 142 mmol/L (135-145) 10/24/18 05:09 Potassium 4.0 mmol/L (3.5-5.0) 10/24/18 05:09 Chloride 92 mmol/L (101-111) L 10/24/18 05:09 Carbon Dioxide 43 mmol/L (21-32) H* 10/24/18 05:09 Anion Gap 7.0 (6-13) 10/24/18 05:09 BUN 13 mg/dL (6-20) 10/24/18 05:09 Creatinine 0.6 mg/dL (0.4-1.0) 10/24/18 05:09 Estimated GFR (MDRD) 95 (>89) 10/24/18 05:09 Glucose 97 mg/dL (70-100) 10/24/18 05:09 Calcium 9.1 mg/dL (8.5-10.3) 10/24/18 05:09 Phosphorus 4.0 mg/dL (2.5-4.6) 10/24/18 05:09 Magnesium 2.1 mg/dL (1.7-2.8) 10/24/18 05:09 Iron 70 ug/dL (28-170) 10/23/18 05:16 TIBC 361 ug/dL (250-450) 10/23/18 05:16 % Saturation 19 % (20-50) L 10/23/18 05:16 Transferrin 258 mg/dL (192-382) 10/23/18 05:16 Total Bilirubin 0.8 mg/dL (0.2-1.0) 10/21/18 19:09 AST 29 IU/L (10-42) 10/21/18 19:09 ALT 20 IU/L (10-60) 10/21/18 19:09 Alkaline Phosphatase 77 IU/L (42-121) 10/21/18 19:09 Troponin I < 0.04 ng/mL (<0.49) 10/22/18 14:08 B-Natriuretic Peptide 158 pg/mL (5-100) H 10/22/18 05:23 Total Protein 7.1 g/dL (6.7-8.2) 10/21/18 19:09 Albumin 3.4 g/dL (3.2-5.5) 10/21/18 19:09 Globulin 3.7 g/dL (2.1-4.2) 10/21/18 19:09 Albumin/Globulin Ratio 0.9 (1.0-2.2) L 10/21/18 19:09 Lipase 24 U/L (22-51) 10/21/18 19:09 Vitamin B12 1186 pg/mL (180-914) H 10/23/18 05:16 Folate 21.12 ng/mL (5.90 - >24.8) 10/23/18 05:16 TSH 1.17 uIU/mL (0.34-5.60) 10/21/18 21:36 Free T4 1.10 ng/dL (0.58-1.64) 10/21/18 21:36 Urine Color YELLOW 10/21/18 19:45 Urine Clarity CLEAR (CLEAR) 10/21/18 19:45 Urine pH 5.5 PH (5.0-7.5) 10/21/18 19:45 Ur Specific [place] 1.025 (1.002-1.030) 10/21/18 19:45 Urine Protein TRACE mg/dL (NEGATIVE) 10/21/18 19:45 Urine Glucose (UA) NEGATIVE mg/dL (NEGATIVE) 10/21/18 19:45 Urine Ketones 15 mg/dL (NEGATIVE) H 10/21/18 19:45 Urine Occult Blood TRACE-LYSE (NEGATIVE) 10/21/18 19:45 Urine Nitrite NEGATIVE (NEGATIVE) 10/21/18 19:45 Urine Bilirubin NEGATIVE (NEGATIVE) 10/21/18 19:45 Urine Urobilinogen 2 E.U./dL (NORMAL) H 10/21/18 19:45 Ur Leukocyte Esterase NEGATIVE (NEGATIVE) 10/21/18 19:45 Ur Microscopic Review NOT INDICATED 10/21/18 19:45 Urine Culture Comments NOT INDICATED 10/21/18 19:45 Nasal Screen MRSA (PCR) NEGATIVE (NEGATIVE) 10/21/18 21:50
[2018-10-24 11:35] LABS: ABG PH 7.38 (7.35-7.45)
[2018-10-24 11:36] LABS: ABG HCO3 43.2 mmol/L (22.0-26.0); ABG OXYGEN SATURATION 99 % (94-98); ALLEN TEST POSITIVE
[2018-10-24 11:38] LABS: ABG PCO2 75 mmHg (34-45); ABG PO2 174 mmHg (80-100); ABG TCO2 45.5 MMOL/L (21.0-29.0)
[2018-10-24] MEDS ORDERED: levETIRAcetam 100 MG/ML 473ML BOTTLE PO SCH (14:00)
[2018-10-24] MEDS ORDERED: levETIRAcetam 250 MG TABLET PO SCH (14:28)
[2018-10-24] MEDS: WARFARIN 1 MG TABLET PO SCH (14:40)
[2018-10-24] MEDS: levETIRAcetam 250 MG TABLET PO SCH ×2 (14:42→20:20)
[2018-10-24] MEDS: LEVALBUTEROL 1.25 MG/3 ML NEB INH PRN (17:00)
[2018-10-24] MEDS ORDERED: GADOBUTROL 10 MMOL/10 ML VIAL ONE (17:34)
[2018-10-24] MEDS ORDERED: GADOBUTROL 10 MMOL/10 ML VIAL IVP ONE (19:28)
--- NOTE | 2018-10-24 19:58 | MRI Report ---
Reason: Absence spells vs TIA/CVA Procedure Date: 10/24/2018 Accession Number: [id number] / [id number] Procedure: MRI - Brain W/WO CPT Code: FULL RESULT: EXAM: MRI BRAIN WITHOUT AND WITH CONTRAST EXAM DATE: 10/24/2018 06:45 PM. CLINICAL HISTORY: Absence spells vs TIA/CVA. COMPARISON: Prior CT head 10/21/2018, prior MRI brain 03/29/2008. TECHNIQUE: Multiplanar, multisequence T1-weighted and fluid-sensitive MR sequences of the brain were performed. Sequences optimized for routine evaluation. Other: None. IV Contrast: 10 cc Gadavist. Findings: Relevant images are indicated (image number, series number). There is patient motion artifact. There is no acute/subacute ischemic change in the brain. There is no significant hemosiderin deposition present in the brain. 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 Postcontrast imaging otherwise demonstrates no abnormal enhancement of the brain, meninges. 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 White matter disease is progressive in the interval. Mild brain atrophy. Mild dense pontine white matter disease. Empty sella. Midbrain, craniocervical junction, limited upper cervical cord negative. Extraocular muscles, optic nerves, orbital apex, optic chiasm negative. Impressions: Study partly degraded by patient motion. 1. No acute/subacute ischemic change. 2. 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 3. Mild brain atrophy. RADIA
[2018-10-24] MEDS: ATORVASTATIN 40 MG TABLET PO SCH (20:21)
[2018-10-25 05:04] LABS: BASOPHILS % (AUTO) 0.3 %; EOSINOPHILS # (AUTO) 0.1 10^3/uL (0.0-0.7); EOSINOPHILS % (AUTO) 1.9 %; HGB - HEMOGLOBIN 11.1 g/dL (12.0-16.0); LYMPHOCYTES # (AUTO) 0.7 10^3/uL (1.5-3.5); LYMPHOCYTES % (AUTO) 9.3 %; MEAN CORPUSCULAR HEMOGLOBIN 30.7 pg (27.0-31.0); MEAN CORPUSCULAR HGB CONC 31.9 g/dL (32.0-36.0); MEAN CORPUSCULAR VOLUME 96.2 fL (81.0-99.0); MEAN PLATELET VOLUME 7.7 fL (7.9-10.8); MONOCYTES # (AUTO) 0.9 10^3/uL (0.0-1.0); MONOCYTES % (AUTO) 13.5 %; NEUTROPHILS # (AUTO) 5.3 10^3/uL (1.5-6.6); PLT - PLATELET COUNT 222 10^3/uL (130-450); RED BLOOD COUNT 3.62 10^6/uL (4.20-5.40); RED CELL DISTRIBUTION WIDTH 16.1 % (12.0-15.0)
[2018-10-25 05:19] LABS: CALCIUM 9.2 mg/dL (8.5-10.3); CREATININE 0.7 mg/dL (0.4-1.0)
[2018-10-25] MEDS: SODIUM CHLORIDE FLUSH 0.9% 10 ML SYRINGE IVP SCH ×4 (06:09→20:16)
[2018-10-25] MEDS: LEVOTHYROXINE 75 MCG TABLET PO SCH (06:09)
[2018-10-25] MEDS: LEVALBUTEROL 1.25 MG/3 ML NEB INH PRN ×2 (07:59→16:04)
[2018-10-25] MEDS: acetaZOLAMIDE 250 MG TABLET PO SCH (08:44)
[2018-10-25] MEDS: DOCUSATE SODIUM 250 MG CAPSULE PO SCH (08:45)
[2018-10-25] MEDS: levETIRAcetam 250 MG TABLET PO SCH ×2 (08:46→20:15)
[2018-10-25] MEDS: METOPROLOL SUCCINATE 50 MG TABLET PO SCH ×2 (08:47→20:15)
[2018-10-25] MEDS: POLYETHYLENE GLYCOL 3350 17 GM PACKET PO SCH (08:47)
[2018-10-25] MEDS: POTASSIUM CHLORIDE 10 MEQ CAPSULE PO SCH (08:47)
[2018-10-25] MEDS: SENNA 8.6 MG TABLET PO SCH (08:47)
[2018-10-25] MEDS: SPIRONOLACTONE 25 MG TABLET PO SCH (08:47)
[2018-10-25] MEDS: NYSTATIN POWDER 15 GM TOP SCH ×2 (08:48→20:16)
[2018-10-25] MEDS: diltiaZEM CD 240 MG CAPSULE PO SCH (08:55)
[2018-10-25] MEDS ORDERED: diltiaZEM CD 180 MG CAPSULE PO SCH (09:00)
[2018-10-25 09:22] LABS: INR 1.3 (0.8-1.2); PT - PROTHROMBIN TIME 14.6 secs (9.9-12.6)
[2018-10-25 13:43] LABS: ABG PH 7.34 (7.35-7.45)
[2018-10-25 13:44] LABS: ABG BASE EXCESS 9.6 mmol/L (-2.0-3.0); ABG HCO3 37.9 mmol/L (22.0-26.0); ABG PO2 87 mmHg (80-100)
[2018-10-25 13:45] LABS: ABG OXYGEN SATURATION 96 % (94-98); ALLEN TEST POSITIVE
[2018-10-25 13:49] LABS: ABG PCO2 71 mmHg (34-45); ABG TCO2 40.1 MMOL/L (21.0-29.0)
[2018-10-25] MEDS ORDERED: MIN OIL/DIMETHICON/COCONUT OIL 92 GM TUBE TOP PRN (14:06)
[2018-10-25] MEDS: WARFARIN 1 MG TABLET PO SCH (14:31)
--- NOTE | 2018-10-25 16:32 | PROVIDER PROGRESS NOTE ---
Subjective - Prog Note Date Prog Note Date: 10/25/18 Prog Note Time: 18:00 - Subjective Subjective: she is just not waking up. Today's nurse reports that this is not the patient she met on admission. I am meeting the person for the first time. She is somo nolent, hard to make speak, slow speech and affect. all new. Reportedly normal at home before this. Objective - Vital Signs/Intake & Output Reviewed Vital Signs: Yes Vital Signs: Vital Signs x48h Temp Pulse Resp BP Pulse Ox 10/25/18 15:00 108 H 26 H 134/88 H 99 10/25/18 14:00 93 30 H 118/89 H 94 10/25/18 13:00 85 27 H 133/96 H 97 10/25/18 12:00 36.4 C L 87 28 H 116/87 H 97 10/25/18 11:00 92 18 114/68 96 10/25/18 10:00 100 23 106/69 97 10/25/18 09:00 127 H 27 H 101/77 97 Intake & Output: Intake & Output 10/22/18 10/23/18 10/24/18 10/25/18 23:59 23:59 23:59 23:59 Intake Total 2857.100 1589.750 790 970 Output Total 650 900 930 775 Balance 2207.100 689.750 -140 195 - Objective General Appearance: positive: No acute distress, Lethargic, Other (she looks at me but is silent. not speaking well. does answer yes or now.) Eyes Bilateral: positive: PERRL, EOMI ENT: positive: Pharynx nml Neck: positive: No JVD. negative: Stiff neck Respiratory: positive: Chest non-tender, Other (slow shallow unlabored response.). negative: Wheezes, Rales, Rhonchi Cardiovascular: positive: Regular rate & rhythm, Systolic murmur. negative: Gallop/S4, Friction rub Abdomen: positive: Non-tender, Nml bowel sounds, Other (large panus). negative: Guarding, Rebound Skin: positive: Dry, Pallor Extremities: positive: Pedal edema Neurologic/Psychiatric: positive: Oriented x3 - Lab Results Fish Bones: 10/25/18 04:44 10/26/18 04:35 Other Labs: Lab Results x24hrs 10/25/18 10/25/18 10/25/18 Range/Units 13:32 09:08 04:44 WBC (4.8-10.8) x10^3/uL RBC (4.20-5.40) 10^6/uL Hgb (12.0-16.0) g/dL Hct (37.0-47.0) % MCV (81.0-99.0) fL MCH (27.0-31.0) pg MCHC (32.0-36.0) g/dL RDW (12.0-15.0) % Plt Count (130-450) 10^3/uL MPV (7.9-10.8) fL Neut # (Auto) (1.5-6.6) 10^3/uL Lymph # (Auto) (1.5-3.5) 10^3/uL Granite # (Auto) (0.0-1.0) 10^3/uL Eos # (Auto) (0.0-0.7) 10^3/uL Baso # (Auto) (0.0-0.1) 10^3/uL Absolute Nucleated RBC x10^3/uL Nucleated RBC % /100WBC PT 14.6 H (9.9-12.6) secs INR 1.3 H (0.8-1.2) Bld Gas Analysis Time 1343 Sample Site LEFT RADIAL ABG pH 7.34 L (7.35-7.45) ABG pCO2 71 H* (34-45) mmHg ABG pO2 87 (80-100) mmHg ABG HCO3 37.9 H (22.0-26.0) mmol/L ABG Total CO2 40.1 H* (21.0-29.0) MMOL/L ABG O2 Saturation 96 (94-98) % ABG Base Excess 9.6 H (-2.0-3.0) mmol/L Aiden Test POSITIVE O2 Delivery Device NASAL CANNULA O2 Liters/Min 2.00 LPM Sodium 140 (135-145) mmol/L Potassium 4.4 (3.5-5.0) mmol/L Chloride 90 L (101-111) mmol/L Carbon Dioxide 41 H* (21-32) mmol/L Anion Gap 9.0 (6-13) BUN 16 (6-20) mg/dL Creatinine 0.7 (0.4-1.0) mg/dL Estimated GFR (MDRD) 79 L (>89) Glucose 101 H (70-100) mg/dL Calcium 9.2 (8.5-10.3) mg/dL 10/25/18 Range/Units 04:44 WBC 7.0 (4.8-10.8) x10^3/uL RBC 3.62 L (4.20-5.40) 10^6/uL Hgb 11.1 L (12.0-16.0) g/dL Hct 34.8 L (37.0-47.0) % MCV 96.2 (81.0-99.0) fL MCH 30.7 (27.0-31.0) pg MCHC 31.9 L (32.0-36.0) g/dL RDW 16.1 H (12.0-15.0) % Plt Count 222 (130-450) 10^3/uL MPV 7.7 L (7.9-10.8) fL Neut # (Auto) 5.3 (1.5-6.6) 10^3/uL Lymph # (Auto) 0.7 L (1.5-3.5) 10^3/uL Granite # (Auto) 0.9 (0.0-1.0) 10^3/uL Eos # (Auto) 0.1 (0.0-0.7) 10^3/uL Baso # (Auto) 0.0 (0.0-0.1) 10^3/uL Absolute Nucleated RBC 0.01 x10^3/uL Nucleated RBC % 0.1 /100WBC PT (9.9-12.6) secs INR (0.8-1.2) Bld Gas Analysis Time Sample Site ABG pH (7.35-7.45) ABG pCO2 (34-45) mmHg ABG pO2 (80-100) mmHg ABG HCO3 (22.0-26.0) mmol/L ABG Total CO2 (21.0-29.0) MMOL/L ABG O2 Saturation (94-98) % ABG Base Excess (-2.0-3.0) mmol/L Aiden Test O2 Delivery Device O2 Liters/Min LPM Sodium (135-145) mmol/L Potassium (3.5-5.0) mmol/L Chloride (101-111) mmol/L Carbon Dioxide (21-32) mmol/L Anion Gap (6-13) BUN (6-20) mg/dL Creatinine (0.4-1.0) mg/dL Estimated GFR (MDRD) (>89) Glucose (70-100) mg/dL Calcium (8.5-10.3) mg/dL Assessment/Plan - Problem List (1) Altered mental status Impression: These are the kind of events that were happening in her apartment that the son brought her in for. This appeared to be an absence-type spell to Hospitalist on service 10/24/18. She reviewed the entire case with the on-call Neurologist at [facility], Dr. Cordoba 10/24/18. Dr. Cordoba indicated that this sounds like a petit mal seizure and that since we do not have EEG capability here, start empiric treatment with Keppra, 750 mg po bid. The patient had a brain MRI done and results are in lab section. The impression of Dr. Cordoba was that, at this age, new onset of seizures is associated with a CVA or a brain tumor or is seen rarely (in 5%) of dementia patients. Remain in ICU. Neuro checks q2h. (2) Acute on chronic diastolic heart failure Assessment/Plan: No dyspnea, even when she is supine, as of 10/23/18. Continue HR control and gentle diuresis with po Lasix. (3) Atrial fibrillation with RVR Assessment/Plan: Continue increased doses of beta-glenna for rate control. Her rate will go up into 120s but comes back down quickly. Continue coumadin, if no brain MRI signs of hemorrhage. Follow INR daily. (4) Cor pulmonale Assessment/Plan: Continue loop diuretic and Spironolactone. (5) Yeast dermatitis Assessment/Plan: Continue topical treatment. (6) Hypothyroidism Assessment/Plan: Continue her home thyroid med. (7) COPD (chronic obstructive pulmonary disease) Qualifiers: COPD type: unspecified COPD Qualified Code(s): J44.9 - Chronic obstructive pulmonary disease, unspecified Assessment/Plan: She has no active wheezing or sequalae such as increased AP diameter, but has chronic CO2 retention on labs. Repeat ABG today shows continued C02 retention as well as a newly developed alkalosis. She has been on diamox since 11/22. CO2 retention is not severe enough to warrant BiPAP right now. I will, however, use BiPAP at night while she is asleep. She does desaturate to 86% on room air in the supine position. She is requiring Oxymizer to 2 L to bring her O2 sats up greater than 90%. (8) Anemia Assessment/Plan: This is felt to be hemodilutional or anemia of chronic disease, as she does not have iron deficiency, B12 or folate deficiency. Follow CBC daily Qualifiers: Qualified Code(s): R41.82 - Altered mental status, unspecified
[2018-10-25 18:04] LABS: ABG PH 7.38 (7.35-7.45)
[2018-10-25 18:05] LABS: ABG BASE EXCESS 9.6 mmol/L (-2.0-3.0); ABG HCO3 36.9 mmol/L (22.0-26.0); ABG OXYGEN SATURATION 95 % (94-98); ABG PCO2 64 mmHg (34-45); ABG PO2 77 mmHg (80-100); ABG TCO2 38.8 MMOL/L (21.0-29.0); ALLEN TEST POSITIVE
[2018-10-25] MEDS: ATORVASTATIN 40 MG TABLET PO SCH (20:15)
[2018-10-26 05:04] LABS: INR 1.6 (0.8-1.2); PT - PROTHROMBIN TIME 17.6 secs (9.9-12.6)
[2018-10-26 05:07] LABS: CALCIUM 9.2 mg/dL (8.5-10.3); MAGNESIUM 1.9 mg/dL (1.7-2.8); PHOSPHORUS 3.9 mg/dL (2.5-4.6)
[2018-10-26] MEDS: LEVOTHYROXINE 75 MCG TABLET PO SCH (06:12)
[2018-10-26] MEDS: LEVALBUTEROL 1.25 MG/3 ML NEB INH PRN ×3 (07:17→23:38)
[2018-10-26] MEDS: DOCUSATE SODIUM 250 MG CAPSULE PO SCH (08:05)
[2018-10-26] MEDS: POLYETHYLENE GLYCOL 3350 17 GM PACKET PO SCH (08:06)
[2018-10-26] MEDS: SENNA 8.6 MG TABLET PO SCH (08:06)
[2018-10-26] MEDS: diltiaZEM CD 240 MG CAPSULE PO SCH (08:33)
[2018-10-26] MEDS: SODIUM CHLORIDE FLUSH 0.9% 10 ML SYRINGE IVP SCH ×3 (08:33→21:14)
[2018-10-26] MEDS: SPIRONOLACTONE 25 MG TABLET PO SCH (08:33)
[2018-10-26] MEDS: acetaZOLAMIDE 250 MG TABLET PO SCH (08:33)
[2018-10-26] MEDS: POTASSIUM CHLORIDE 10 MEQ CAPSULE PO SCH (08:34)
[2018-10-26] MEDS: levETIRAcetam 250 MG TABLET PO SCH ×2 (08:35→21:13)
[2018-10-26] MEDS: NYSTATIN POWDER 15 GM TOP SCH ×2 (08:37→21:14)
[2018-10-26] MEDS: METOPROLOL SUCCINATE 50 MG TABLET PO SCH ×2 (10:45→21:13)
[2018-10-26 12:31] LABS: ABG BASE EXCESS 4.3 mmol/L (-2.0-3.0); ABG HCO3 30.7 mmol/L (22.0-26.0); ABG PCO2 54 mmHg (34-45); ABG PH 7.38 (7.35-7.45); ABG PO2 76 mmHg (80-100); ABG TCO2 32.3 MMOL/L (21.0-29.0)
[2018-10-26 12:32] LABS: ABG OXYGEN SATURATION 95 % (94-98); ALLEN TEST POSITIVE
[2018-10-26] MEDS: WARFARIN 1 MG TABLET PO SCH (14:01)
--- NOTE | 2018-10-26 16:43 | XRAY Report ---
Reason: somnolent, retaining co2 Procedure Date: 10/26/2018 Accession Number: [id number] / [id number] Procedure: XR - Chest 1 View X-Ray CPT Code: 32736 FULL RESULT: EXAM: CHEST RADIOGRAPHY EXAM DATE: 10/26/2018 04:19 PM. CLINICAL HISTORY: Respiratory failure COMPARISON: CHEST 1 VIEW 10/21/2018 9:46 PM. TECHNIQUE: 1 view. FINDINGS: Lungs/Pleura: Borderline pulmonary venous congestion, improved. Little change in left basilar consolidation. Tiny bilateral pleural effusions, greater on the left side. Mediastinum: Moderate cardiac silhouette. Other: None. IMPRESSION: 1. Slight improvement in pulmonary venous congestion. 2. No change in moderately enlarged cardiac silhouette, left basal consolidation, and small left pleural effusion. RADIA
[2018-10-26] MEDS: ATORVASTATIN 40 MG TABLET PO SCH (21:13)
--- NOTE | 2018-10-26 21:55 | PROVIDER PROGRESS NOTE ---
Subjective - Prog Note Date Prog Note Date: 10/26/18 Prog Note Time: 21:54 - Subjective Subjective: In spite of working with her today. Putting her on BiPAP and getting her PCO2 down to 53 she is not waking up. This woman has had an MRI of the head for her "petit mal seizures" and MRI is negative. Started on Keppra and there have been no more further staring episodes but she is just incredibly somnolent. In order for her to eat breakfast we have to wake her up, give her a bite to chew and keep her stimulated. She swallows and then goes back to sleep. We then wake her up give her another bite and will repeat this until she is able to eat some of her meal. Vitals been stable, she does not have a fever. Her labs that showed a consistent carbon dioxide rise. She started at 39 on admission and got as high as 44 on October 23. Today she is 41. She has been on Diamox for that with slow response. Otherwise calcium, BUN and creatinine have been normal. CBC stayed stable with the same anemia of 11 g of hemoglobin and a stable white cell count. Her medication list is reviewed and there is no sedate of agents. Current Medications - Current Medications Current Medications: Active Medications Generic Name Dose Route Start Last Admin Trade Name Freq PRN Reason Stop Dose Admin Acetazolamide 250 mg 10/23/18 10:00 10/26/18 08:33 Diamox PO 250 mg DAILY POP Administration Atorvastatin Calcium 40 mg 10/22/18 21:00 10/26/18 21:13 Lipitor PO 40 mg QPM POP Administration Diltiazem HCl 240 mg 10/25/18 09:00 10/26/18 08:33 Cardizem Cd PO 240 mg DAILY POP Administration Docusate Sodium 250 - 500 mg 10/22/18 10:00 10/26/18 08:05 Colace 250mg Capsule PO Not Given DAILY POP Levalbuterol HCl 1.25 mg 10/21/18 23:32 10/26/18 17:12 Xopenex INH 1.25 mg Q4H PRN Administration Shortness of Air/Wheezing Levetiracetam 750 mg 10/24/18 14:00 10/26/18 21:13 Keppra PO 750 mg BID POP Administration Levothyroxine Sodium 75 mcg 10/22/18 07:00 10/26/18 06:12 Synthroid PO 75 mcg QDAC POP Administration Metoprolol Succinate 100 mg 10/22/18 21:00 10/26/18 21:13 Toprol Xl PO 100 mg BID POP Administration Mineral Oil 1 applic 10/25/18 14:06 10/25/18 14:31 Cavilon TOP 1 applic PRN PRN Administration Skin Care Nystatin 1 applic 10/21/18 22:00 10/26/18 21:14 Nystop TOP 1 applic BID POP Administration Polyethylene Glycol 17 gm 10/22/18 09:00 10/26/18 08:06 Miralax PO Not Given DAILY POP Potassium Chloride 10 meq 10/22/18 09:00 10/26/18 08:34 Micro-K PO 10 meq DAILY POP Administration Senna 8.6 - 17.2 mg 10/22/18 10:00 10/26/18 08:06 Senokot PO Not Given DAILY POP Sodium Chloride 10 ml 10/22/18 01:00 10/26/18 21:14 Normal Saline Flush 0.9% IVP 10 ml 0100,0900,1700 POP Administration Sodium Chloride 10 ml 10/21/18 20:56 10/23/18 06:23 Normal Saline Flush 0.9% IVP 10 ml PRN PRN Administration NEEDED PER PROVIDER ORDERS Spironolactone 25 mg 10/22/18 09:00 10/26/18 08:33 Aldactone PO 25 mg DAILY POP Administration Warfarin Sodium 4 mg 10/23/18 14:00 10/26/18 14:01 Coumadin PO 4 mg 1400 POP Administration Enalapril [Vasotec] 5 mg PO BID 08/31/17 Furosemide 80 mg PO DAILY 08/31/17 Levothyroxine [Synthroid] 75 mcg PO QDAC 08/31/17 diltiaZEM CD [Cardizem Cd] 180 mg PO DAILY 08/31/17 Albuterol Sulf [Ventolin Hfa Inhaler] 2 puffs INH Q4H PRN 12/25/17 Atorvastatin Calcium 40 mg PO QPM 12/25/17 Metoprolol Tartrate 150 mg PO BID 12/25/17 Warfarin Sodium [Coumadin] 4 mg PO DAILY 12/25/17 Aspirin [Aspirin EC] 81 mg PO DAILY 10/22/18 Budesonide/Formoterol Fumarate [Symbicort 160-4.5 Mcg Inhaler] 2 puffs INH BID 10/22/18 Potassium Chloride 10 meq PO DAILY 10/22/18 Warfarin Sodium 2 mg PO SUTH@0900 PRN 10/22/18 Objective - Vital Signs/Intake & Output Reviewed Vital Signs: Yes Vital Signs: Vital Signs x48h Pulse Pulse Resp BP Pulse Ox 10/26/18 21:15 109 H 22 10/26/18 19:28 105 H 10/26/18 19:00 104 H 17 103/67 98 10/26/18 18:00 103 H 32 H 112/78 98 10/26/18 17:16 108 H 34 H 10/26/18 17:12 97 10/26/18 17:00 105 H 34 H 106/68 96 10/26/18 16:00 111 H 26 H 111/69 97 10/26/18 15:00 104 H 27 H 108/75 92 10/26/18 14:38 118 H 10/26/18 14:00 102 H 19 109/81 H 95 Intake & Output: Intake & Output 10/23/18 10/24/18 10/25/18 10/26/18 23:59 23:59 23:59 23:59 Intake Total 1589.143 117 0409 890 Output Total 694 304 4057 525 Balance 689.750 -140 295 365 - Objective General Appearance: positive: No acute distress, Lethargic, Other (Slack bases, response to voice and will open eyes and answer yes no no clear sentence structure. This is in contradistinction to nursing who took care of her at the very beginning of her stay and she was much more alert, oriented, and interactive.) Eyes Bilateral: positive: PERRL, EOMI ENT: positive: Dry mucous membranes Neck: positive: No JVD. negative: Stiff neck Respiratory: positive: Chest non-tender. negative: Wheezes, Rales, Rhonchi Cardiovascular: positive: Irregularly irregular. negative: Tachycardia, Bradycardia, Gallop/S4, Friction rub Abdomen: positive: Non-tender, Nml bowel sounds, No distention. negative: Gua rding, Rebound Skin: positive: Warm, Dry Extremities: positive: Pedal edema (mild) Neurologic/Psychiatric: positive: Disoriented to person, Disoriented to place, Disoriented to time. negative: Motor nml, Mood/affect nml, Slurred/abnml speech, Depressed mood/affect - Lab Results Fish Bones: 10/25/18 04:44 10/26/18 04:35 Other Labs: Lab Results x24hrs 10/26/18 10/26/18 10/26/18 Range/Units 12:22 04:35 04:35 PT 17.6 H (9.9-12.6) secs INR 1.6 H (0.8-1.2) Bld Gas Analysis Time 1222 Sample Site LEFT RADIAL ABG pH 7.38 (7.35-7.45) ABG pCO2 54 H (34-45) mmHg ABG pO2 76 L (80-100) mmHg ABG HCO3 30.7 H (22.0-26.0) mmol/L ABG Total CO2 32.3 H (21.0-29.0) MMOL/L ABG O2 Saturation 95 (94-98) % ABG Base Excess 4.3 H (-2.0-3.0) mmol/L Aiden Test POSITIVE O2 Delivery Device BiPAP FiO2 30.00 EPAP 4 cmH2O IPAP 10 cmH2O Potassium 4.3 (3.5-5.0) mmol/L Calcium 9.2 (8.5-10.3) mg/dL Phosphorus 3.9 (2.5-4.6) mg/dL Magnesium 1.9 (1.7-2.8) mg/dL ABX Reporting Has patient been on IV antibiotics over the past 48 hours?: No Sepsis Event Note (H) - Evaluation Current Stage of Sepsis: Ruled out Assessment/Plan - Problem List (1) Altered mental status Impression: These are the kind of events that were happening in her apartment that the son brought her in for. This appeared to be an absence-type spell to Hospitalist on service 10/24/18. She reviewed the entire case with the on-call Neurologist at [facility], Dr. Cordoba 10/24/18. Dr. Cordoba indicated that this sounds like a petit mal seizure and that since we do not have EEG capability here, start empiric treatment with Keppra, 750 mg po bid. The patient had a brain MRI done and results are in lab section. The impression of Dr. Cordoba was that, at this age, new onset of seizures is associated with a CVA or a brain tumor or is seen rarely (in 5%) of dementia patients. She has remained in ICU due to the use of BiPAP but her metabolic encephalopathy Has not improved. She has Rimas remained with psychomotor slowing. Sleeping. I have look for infection, hemodynamic instability, electrolyte imbalance, hypercapnia. And none found. Neuro checks q2h. check ammonia level in am. I will ask family how far I am to go in workup since she is not improving (2) Acute on chronic diastolic heart failure Assessment/Plan: No dyspnea, even when she is supine, as of 10/23/18. Continue HR control and gentle diuresis with po Lasix. (3) Atrial fibrillation with RVR Assessment/Plan: Continue increased doses of beta-glenna for rate control. Her rate will go up into 120s but comes back down quickly. Continue coumadin, if no brain MRI signs of hemorrhage. Follow INR daily. (4) Cor pulmonale Assessment/Plan: Continue loop diuretic and Spironolactone. (5) Yeast dermatitis Assessment/Plan: Continue topical treatment. (6) Hypothyroidism Assessment/Plan: Continue her home thyroid med. (7) COPD (chronic obstructive pulmonary disease) Qualifiers: COPD type: unspecified COPD Qualified Code(s): J44.9 - Chronic obstructive pulmonary disease, unspecified Assessment/Plan: She has no active wheezing or sequalae such as increased AP diameter, but has chronic CO2 retention on labs. Repeat ABG 10/25 shows continued C02 retention as well as a newly developed alkalosis. She has been on diamox since 11/22. CO2 retention is not severe enough to warrant BiPAP early in the day yesterday but with repeat ABG she was with rising C02 and I wanted her to use BiPAP at night while she was asleep. She does desaturate to 86% on room air in the supine position. She is requiring Oxymizer to 2 L to bring her O2 sats up greater than 90%. Last night was not on BiPAP and this am again, sleepy, lethargic and not doing well. I put her on BiPap and pH is 7.375 with pC02 53.7 and no response to good gases with improved mentation. (8) Anemia Assessment/Plan: This is felt to be hemodilutional or anemia of chronic disease, as she does not have iron deficiency, B12 or folate deficiency. Follow CBC daily Qualifiers: Qualified Code(s): R41.82 - Altered mental status, unspecified
[2018-10-26] MEDS: FUROSEMIDE 20 MG/2 ML VIAL IVP SCH (23:16)
[2018-10-26] MEDS: SODIUM CHLORIDE FLUSH 0.9% 10 ML SYRINGE IVP PRN (23:16)
[2018-10-27 05:20] LABS: BASOPHILS # (AUTO) 0.1 10^3/uL (0.0-0.1); BASOPHILS % (AUTO) 0.9 %; EOSINOPHILS % (AUTO) 0.3 %; LYMPHOCYTES # (AUTO) 0.8 10^3/uL (1.5-3.5); LYMPHOCYTES % (AUTO) 6.1 %; MEAN CORPUSCULAR HEMOGLOBIN 30.3 pg (27.0-31.0); MEAN CORPUSCULAR HGB CONC 31.7 g/dL (32.0-36.0); MEAN CORPUSCULAR VOLUME 95.3 fL (81.0-99.0); MEAN PLATELET VOLUME 7.9 fL (7.9-10.8); MONOCYTES # (AUTO) 1.2 10^3/uL (0.0-1.0); MONOCYTES % (AUTO) 9.8 %; NEUTROPHILS # (AUTO) 10.5 10^3/uL (1.5-6.6); NEUTROPHILS % (AUTO) 82.9 %; PLT - PLATELET COUNT 199 10^3/uL (130-450); RED BLOOD COUNT 3.62 10^6/uL (4.20-5.40); RED CELL DISTRIBUTION WIDTH 16.1 % (12.0-15.0); WHITE BLOOD COUNT 12.7 x10^3/uL (4.8-10.8)
[2018-10-27 05:23] LABS: INR 1.9 (0.8-1.2); PT - PROTHROMBIN TIME 21.2 secs (9.9-12.6)
[2018-10-27 05:30] LABS: ALBUMIN 2.8 g/dL (3.2-5.5); ALBUMIN/GLOBULIN RATIO 0.8 (1.0-2.2); BILIRUBIN,TOTAL 0.9 mg/dL (0.2-1.0); CREATININE 0.7 mg/dL (0.4-1.0); TOTAL PROTEIN 6.2 g/dL (6.7-8.2)
[2018-10-27] MEDS: LEVALBUTEROL 1.25 MG/3 ML NEB INH PRN (05:35)
[2018-10-27] MEDS: FUROSEMIDE 20 MG/2 ML VIAL IVP SCH ×2 (05:48→14:08)
[2018-10-27] MEDS: SODIUM CHLORIDE FLUSH 0.9% 10 ML SYRINGE IVP PRN ×2 (05:48→15:46)
[2018-10-27] MEDS: LEVOTHYROXINE 75 MCG TABLET PO SCH (05:48)
[2018-10-27] MEDS: SODIUM CHLORIDE FLUSH 0.9% 10 ML SYRINGE IVP SCH ×2 (05:55→14:11)
[2018-10-27] MEDS: levETIRAcetam 250 MG TABLET PO SCH ×2 (09:06→21:57)
[2018-10-27] MEDS: METOPROLOL SUCCINATE 50 MG TABLET PO SCH ×2 (09:06→21:57)
[2018-10-27] MEDS: acetaZOLAMIDE 250 MG TABLET PO SCH (09:06)
[2018-10-27] MEDS: POTASSIUM CHLORIDE 10 MEQ CAPSULE PO SCH (09:07)
[2018-10-27] MEDS: diltiaZEM CD 240 MG CAPSULE PO SCH (09:07)
[2018-10-27] MEDS: SPIRONOLACTONE 25 MG TABLET PO SCH (09:07)
[2018-10-27] MEDS: POLYETHYLENE GLYCOL 3350 17 GM PACKET PO SCH (09:14)
[2018-10-27] MEDS: DOCUSATE SODIUM 250 MG CAPSULE PO SCH (09:14)
[2018-10-27] MEDS: NYSTATIN POWDER 15 GM TOP SCH ×2 (09:15→21:59)
[2018-10-27] MEDS: SENNA 8.6 MG TABLET PO SCH (09:16)
--- NOTE | 2018-10-27 14:26 | PROVIDER PROGRESS NOTE ---
Subjective - Prog Note Date Prog Note Date: 10/27/18 Prog Note Time: 14:26 - Subjective Subjective: she is still slow to respond in spite of corrected blood gases. still sleeps or is lethargic, needs constant stimulation to wake up enough to eat and then goes back down. BiPap on for the most part to keep her respiration going. She not struggling to breath just obtunded. Current Medications - Current Medications Current Medications: Active Medications Acetazolamide (Diamox) 250 mg PO DAILY [facility] Last Admin: 10/27/18 09:06 Dose: 250 mg Atorvastatin Calcium (Lipitor) 40 mg PO QPM POP Last Admin: 10/26/18 21:13 Dose: 40 mg Diltiazem HCl (Cardizem Cd) 240 mg PO DAILY [facility] Last Admin: 10/27/18 09:07 Dose: 240 mg Docusate Sodium (Colace 250mg Capsule) 250 - 500 mg PO DAILY [facility] Last Admin: 10/27/18 09:14 Dose: Not Given Furosemide (Lasix Inj 20mg Vial) 20 mg IVP BIDDIURETIC [facility] Last Admin: 10/27/18 14:08 Dose: 20 mg Levalbuterol HCl (Xopenex) 1.25 mg INH Q4H PRN PRN Reason: Shortness of Air/Wheezing Last Admin: 10/27/18 05:35 Dose: 1.25 mg Levetiracetam (Keppra) 750 mg PO BID [facility] Last Admin: 10/27/18 09:06 Dose: 750 mg Levothyroxine Sodium (Synthroid) 75 mcg PO QDAC [facility] Last Admin: 10/27/18 05:48 Dose: 75 mcg Metoprolol Succinate (Toprol Xl) 100 mg PO BID [facility] Last Admin: 10/27/18 09:06 Dose: 100 mg Mineral Oil (Cavilon) 1 applic TOP PRN PRN PRN Reason: Skin Care Last Admin: 10/25/18 14:31 Dose: 1 applic Nystatin (Nystop) 1 applic TOP BID [facility] Last Admin: 10/27/18 09:15 Dose: 1 applic Polyethylene Glycol (Miralax) 17 gm PO DAILY [facility] Last Admin: 10/27/18 09:14 Dose: Not Given Potassium Chloride (Micro-K) 10 meq PO DAILY [facility] Last Admin: 10/27/18 09:07 Dose: 10 meq Senna (Senokot) 8.6 - 17.2 mg PO DAILY [facility] Last Admin: 10/27/18 09:16 Dose: Not Given Sodium Chloride (Normal Saline Flush 0.9%) 10 ml IVP 0100,0900,1700 [facility] Last Admin: 10/27/18 14:11 Dose: 10 ml Sodium Chloride (Normal Saline Flush 0.9%) 10 ml IVP PRN PRN PRN Reason: NEEDED PER PROVIDER ORDERS Last Admin: 10/27/18 05:48 Dose: 10 ml Spironolactone (Aldactone) 25 mg PO DAILY [facility] Last Admin: 10/27/18 09:07 Dose: 25 mg Warfarin Sodium (Coumadin) 4 mg PO 1400 [facility] Last Admin: 10/26/18 14:01 Dose: 4 mg Enalapril [Vasotec] 5 mg PO BID 08/31/17 Furosemide 80 mg PO DAILY 08/31/17 Levothyroxine [Synthroid] 75 mcg PO QDAC 08/31/17 diltiaZEM CD [Cardizem Cd] 180 mg PO DAILY 08/31/17 Albuterol Sulf [Ventolin Hfa Inhaler] 2 puffs INH Q4H PRN 12/25/17 Atorvastatin Calcium 40 mg PO QPM 12/25/17 Metoprolol Tartrate 150 mg PO BID 12/25/17 Warfarin Sodium [Coumadin] 4 mg PO DAILY 12/25/17 Aspirin [Aspirin EC] 81 mg PO DAILY 10/22/18 Budesonide/Formoterol Fumarate [Symbicort 160-4.5 Mcg Inhaler] 2 puffs INH BID 10/22/18 Potassium Chloride 10 meq PO DAILY 10/22/18 Warfarin Sodium 2 mg PO SUTH@0900 PRN 10/22/18 Objective - Vital Signs/Intake & Output Reviewed Vital Signs: Yes Vital Signs: Vital Signs x48h Temp Pulse Pulse Resp BP Pulse Ox 10/27/18 14:09 73 10/27/18 14:00 87 33 H 115/67 100 10/27/18 13:00 89 35 H 112/79 99 10/27/18 12:00 37.3 C 99 29 H 112/80 95 10/27/18 11:00 97 33 H 101/69 95 10/27/18 10:00 106 H 22 107/62 10/27/18 09:55 106 H 10/27/18 09:00 112 H 32 H 127/91 H 2 L 10/27/18 08:00 36.3 C L 111 H 33 H 115/72 97 10/27/18 07:41 101 H 10/27/18 07:00 110 H 33 H 108/56 L Intake & Output: Intake & Output 10/24/18 10/25/18 10/26/18 10/27/18 23:59 23:59 23:59 23:59 Intake Total 790 5232 947 3340 Output Total 930 1275 775 850 Balance -140 295 215 770 - Objective General Appearance: positive: Lethargic Eyes Bilateral: positive: PERRL, EOMI ENT: positive: Dry mucous membranes Neck: positive: No JVD. negative: Stiff neck Respiratory: positive: Chest non-tender, Other (For the most part she has slow shallow unlabored respiration, but her chest wall is moving much and there is not a lot of chest excursion. She does appear to have some apneic-like obstruction). negative: Wheezes, Rales, Rhonchi Abdomen: positive: Non-tender, Nml bowel sounds, No distention. negative: Guarding, Rebound Skin: positive: Warm, Dry Neurologic/Psychiatric: positive: Other (she will open her eyes when you speak to her. When her family is in the room she does respond to the voices and sometimes says yes no.Again, this is in contradistinction to her usual baseline status. She is an elderly forgetful female but usually conversant, and an acti ve participant in conversation.) - Lab Results Fish Bones: 10/27/18 05:00 10/27/18 05:00 Other Labs: Lab Results x24hrs 10/27/18 10/27/18 10/27/18 Range/Units 05:00 05:00 05:00 WBC (4.8-10.8) x10^3/uL RBC (4.20-5.40) 10^6/uL Hgb (12.0-16.0) g/dL Hct (37.0-47.0) % MCV (81.0-99.0) fL MCH (27.0-31.0) pg MCHC (32.0-36.0) g/dL RDW (12.0-15.0) % Plt Count (130-450) 10^3/uL MPV (7.9-10.8) fL Neut # (Auto) (1.5-6.6) 10^3/uL Lymph # (Auto) (1.5-3.5) 10^3/uL Putnam # (Auto) (0.0-1.0) 10^3/uL Eos # (Auto) (0.0-0.7) 10^3/uL Baso # (Auto) (0.0-0.1) 10^3/uL Absolute Nucleated RBC x10^3/uL Nucleated RBC % /100WBC PT (9.9-12.6) secs INR (0.8-1.2) Sodium 139 (135-145) mmol/L Potassium 4.1 (3.5-5.0) mmol/L Chloride 97 L (101-111) mmol/L Carbon Dioxide 35 H (21-32) mmol/L Anion Gap 7.0 (6-13) BUN 19 (6-20) mg/dL Creatinine 0.7 (0.4-1.0) mg/dL Estimated GFR (MDRD) 79 L (>89) Glucose 104 H (70-100) mg/dL Calcium 9.0 (8.5-10.3) mg/dL Total Bilirubin 0.9 (0.2-1.0) mg/dL AST 32 (10-42) IU/L ALT 23 (10-60) IU/L Alkaline Phosphatase 68 (42-121) IU/L Ammonia 28.6 (7-35) umol/L B-Natriuretic Peptide 170 H (5-100) pg/mL Total Protein 6.2 L (6.7-8.2) g/dL Albumin 2.8 L (3.2-5.5) g/dL Globulin 3.4 (2.1-4.2) g/dL Albumin/Globulin Ratio 0.8 L (1.0-2.2) 10/27/18 10/27/18 Range/Units 05:00 05:00 WBC 12.7 H (4.8-10.8) x10^3/uL RBC 3.62 L (4.20-5.40) 10^6/uL Hgb 11.0 L (12.0-16.0) g/dL Hct 34.5 L (37.0-47.0) % MCV 95.3 (81.0-99.0) fL MCH 30.3 (27.0-31.0) pg MCHC 31.7 L (32.0-36.0) g/dL RDW 16.1 H (12.0-15.0) % Plt Count 199 (130-450) 10^3/uL MPV 7.9 (7.9-10.8) fL Neut # (Auto) 10.5 H (1.5-6.6) 10^3/uL Lymph # (Auto) 0.8 L (1.5-3.5) 10^3/uL Putnam # (Auto) 1.2 H (0.0-1.0) 10^3/uL Eos # (Auto) 0.0 (0.0-0.7) 10^3/uL Baso # (Auto) 0.1 (0.0-0.1) 10^3/uL Absolute Nucleated RBC 0.01 x10^3/uL Nucleated RBC % 0.1 /100WBC PT 21.2 H (9.9-12.6) secs INR 1.9 H (0.8-1.2) Sodium (135-145) mmol/L Potassium (3.5-5.0) mmol/L Chloride (101-111) mmol/L Carbon Dioxide (21-32) mmol/L Anion Gap (6-13) BUN (6-20) mg/dL Creatinine (0.4-1.0) mg/dL Estimated GFR (MDRD) (>89) Glucose (70-100) mg/dL Calcium (8.5-10.3) mg/dL Total Bilirubin (0.2-1.0) mg/dL AST (10-42) IU/L ALT (10-60) IU/L Alkaline Phosphatase (42-121) IU/L Ammonia (7-35) umol/L B-Natriuretic Peptide (5-100) pg/mL Total Protein (6.7-8.2) g/dL Albumin (3.2-5.5) g/dL Globulin (2.1-4.2) g/dL Albumin/Globulin Ratio (1.0-2.2) ABX Reporting Has patient been on IV antibiotics over the past 48 hours?: No Sepsis Event Note (H) - Evaluation Current Stage of Sepsis: Ruled out Assessment/Plan - Problem List (1) Altered mental status Impression: These are the kind of events that were happening in her apartment that the son brought her in for. This appeared to be an absence-type spell to Hospitalist on service 10/24/18. She reviewed the entire case with the on-call Neurologist at [facility], Dr. Cordoba 10/24/18. Dr. 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 The patient had a brain MRI done and results are in lab section. The impression of Dr. Cordoba was that, at this age, new onset of seizures is associated with a CVA or a brain tumor or is seen rarely (in 5%) of dementia patients.She does have a 1.5 cm meningioma. But that meningioma is unchanged from a 2007 scan. There is no edema around the lesion. She has remained in ICU due to the use of BiPAP but her metabolic encephalopathy It has been 2 days with treatment of her encephalopathy to see if I can find causes and she is not improved. She has remained with psychomotor slowing. Sleeping. I have looked for infection, hemodynamic instability, electrolyte imbalance, hypercapnia. And none found. Neuro checks q2h. Ammonia level is 28 and BNP is 170 Chest x-ray done yesterday shows no change from admission chest x-ray. There seems to be some left lower lobe atelectasis. Today's the first day she had a elevated white cell count. No fever. I will start Levaquin empirically if only to eliminate infection as the cause of her encephalopathy. I called neurology conventions reservationist at [facility]. Again they mentioned that she may need an EEG but we just do not have that here. He does not think she requires transfer to his service. He is going to speak to the hospitalist service at [facility] to see if they are interested in accepting this patient and he will consult. (2) Acute on chronic diastolic heart failure Assessment/Plan: No dyspnea, even when she is supine, as of 10/23/18. Continue HR control and gentle diuresis with po Lasix.BNP is 170 (3) Atrial fibrillation with RVR Assessment/Plan: Continue increased doses of beta-glenna for rate control. Her rate will go up into 120s but comes back down quickly. Continued coumadin since no brain MRI signs of hemorrhage. Follow INR daily. (4) Cor pulmonale Assessment/Plan: Continue loop diuretic and Spironolactone. (5) Yeast dermatitis Assessment/Plan: Continue topical treatment. (6) Hypothyroidism Assessment/Plan: Continue her home thyroid med. (7) COPD (chronic obstructive pulmonary disease) Qualifiers: COPD type: unspecified COPD Qualified Code(s): J44.9 - Chronic obstructive pulmonary disease, unspecified Assessment/Plan: She has no active wheezing or sequalae such as increased AP diameter, but has chronic CO2 retention on labs. Repeat ABG 10/25 shows continued C02 retention as well as a newly developed alkalosis. She has been on diamox since 11/22. CO2 retention is not severe enough to warrant BiPAP early in the day yesterday but with repeat ABG she was with rising C02 and I wanted her to use BiPAP at night while she was asleep. She does desaturate to 86% on room air in the supine position. She is requiring Oxymizer to 2 L to bring her O2 sats up greater than 90%. 10/25 overnight into 10/26 she was not on BiPAP and by 10/26 am again, sleepy, lethargic and not doing well. I put her on BiPap and pH is 7.375 with pC02 53.7 and no response to good gases with improved mentation. So I don't think hypercapnea is cause of encephalopathy. (8) Anemia Assessment/Plan: This is felt to be hemodilutional or anemia of chronic disease, as she does not have iron deficiency, B12 or folate deficiency. Follow CBC daily Qualifiers: Qualified Code(s): R41.82 - Altered mental status, unspecified Qualifiers: Qualified Code(s): R41.82 - Altered mental status, unspecified
[2018-10-27] MEDS: WARFARIN 1 MG TABLET PO SCH (15:45)
[2018-10-27] MEDS ORDERED: levoFLOXacin 750 MG/150 ML 750 MG/150 ML BAG IV SCH (16:00)
[2018-10-27 20:12] VITALS: BP 104/56
[2018-10-27] MEDS: ATORVASTATIN 40 MG TABLET PO SCH (22:00)
--- NOTE | 2018-10-28 19:25 | Discharge Plan ---
Discharge Plan Disposition: 02 Transfer Acute Care Hosp Condition: Stable Instruction Topics: Levetiracetam tablets, Metoprolol tablets, Diltiazem tablets, BiPap About No Smoking: If you smoke, Please STOP! Call for help. Follow-up with: Ada Kay MD [Primary Care Provider] -
[2018-10-29] MEDS ORDERED: levoFLOXacin 750 MG/150 ML 750 MG/150 ML BAG IV SCH (16:00)
--- NOTE | 2018-11-02 20:44 | DISCHARGE SUMMARY ---
Physician: Halle Light MD DATE OF ADMISSION: 10/21/2018 DATE OF DISCHARGE: 10/27/2018 DISCHARGE DIAGNOSES 1. Acute catatonia. 2. Tgqal-xy-dtfinjb heart failure with preserved ejection fraction and cor pulmonale. 3. Moderate mitral regurgitation. 4. Atrial fibrillation with rapid ventricular response, present on admission. 5. Dmckc-fb-rntgmkv respiratory failure with hypercapnia. 6. Hypertension. 7. Hypothyroidism. 8. Chronic obstructive pulmonary disease without exacerbation. 9. Yeast dermatitis. 10. Meningioma. 11. Chronic normocytic anemia MEDICATIONS DURING STAY 1. Diamox. 2. Lipitor. 3. Diltiazem drip. 4. Diltiazem IV push p.r.n. 5. Cardizem CD oral. 6. Lasix 40 mg IV push p.r.n., 80 mg p.o. daily. 7. Xopenex via nebulizer q.4 hours p.r.n. 8. Keppra 750 mg p.o. b.i.d. 9. Levaquin 750 mg daily. 10. Synthroid 75 mcg daily. 11. Toprol-XL 100 mg p.o. b.i.d. 12. Lopressor IV push p.r.n. 13. Nystop topical cream to pannus. 14. Vitamin K p.o. 15. Micro-K 10 mEq daily. 16. K-Dur 40 mEq p.o. daily as needed. 17. Spironolactone 25 mg daily. 18. Coumadin 4 mg daily. PRINCIPAL PROCEDURES 1. Echocardiogram: Underlying rhythm is atrial fibrillation with rapid ventricular response. Moderate left ventricular enlargement. Left ventricular wall thickness is normal. Overall left ventricular systolic function normal with an ejection fraction of 55%-60%. Moderate right ventricular enlargement. Severe increase in left atrial volume index. Severe right atrial enlargement. Kdpl-ko-ltzelima mitral regurgitation. Czlgmump-ub-kuoisz tricuspid regurgitation. Severely abnormal right heart pressures with RVSP at [address]: With no acute hemorrhage or mass effect. Moderate diffuse white matter disease, increased since 2008 comparison. Findings were nonspecific, but most commonly attributed to sequela of chronic microangiopathy. 3. Chest x-rays 10/21/2018 and 10/26/2018: Pulmonary venous congestion present. No change in moderately enlarged cardiac silhouette. Left basal consolidation and left pleural effusion, unchanged. 4. Brain MRI: With no acute subacute ischemic disease. 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 Mild brain atrophy. HOSPITAL COURSE The patient is an 88-year-old female who lives alone. She has been developing some memory loss but is still independent and able to take care of herself, for the most part. Her sons come in and check on her daily. When he came around 6 o'clock on the day of admission, she was sleeping. He had a hard time waking her up, and it took her a while to be coherent. As such, he called EMS. She was found to have a blood glucose of 71. She was given yogurt, and her blood glucose improved to 123. She was in AFib with RVR, and heart rate was between 140s-150s. Her son thinks that she may have forgotten to take her medications the day before admission. He and his recall speaking to the patient the day before admission around 10 p.m., and she was doing well at that time. She usually takes 1-2 liters of oxygen at home and gets around using a walker or a cane. When she was brought to the emergency room, it took a few promptings to get an accurate response of where she was currently. Intermittently, she went through periods where she just sat and stared, and did not respond to her name, her son, or voice. When he came to see her tonight at 6 o'clock, that is what most alarmed him. She just sat and stared at the wall, did not blink when he put his hand in front of her face, and was unresponsive to him. From what we could get out of her, she denied chest pain, dyspnea on exertion, abdominal pain, nausea, vomiting or diarrhea, fever or chills. She was admitted because of acute mental status change. She was initially treated as dmilt-fb-canxjtu heart failure with atrial fibrillation with RVR, and severe valvular heart disease, as well as pulmonary hypertension. She was diuresed and seemed to be getting better. She was stable, after about the second day of hospitalization. Initial CT of the head was negative. Nursing then called physician on service to come to the room to evaluate the patient, when on the third day, she was sitting in bed, staring. Again, the same staring episode that had been present previously and the son had described. 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 [facility] was consulted via telemedicine. It was postulated that the patient may be having seizures, but we do not have EEG, to just start her on Keppra 750 mg p.o. b.i.d. empirically. The patient never really regained an alert sensorium again during her hospitalization. We started treating her for possible infection when the chest x-ray showed the left lung consolidation. Blood gases were obtained, and she was hypercapnic with a pCO2 of 75. She was placed on BiPAP, and we were able to get her pCO2 down to 54. Her pH was initially 7.38 and stayed at 7.38. Bicarbonate was 43 and down to 30. Base excess started at 15 and was down to 4.3, when hospitalist started her on Diamox. Chemistries were rechecked. Carbon dioxide started at 44 and came down to 35. BUN and creatinine remained stable. Glucose was 97-104. CBC remained stable with a hemoglobin that stayed around 11. On the day of discharge, hemoglobin did go up to 12.7. BNP was checked for CHF, and she was 170. Urinalysis had ketones and 2+ urobilinogen, but no infection. Ammonia level was checked for completeness sake, to make sure there was no hepatic encephalopathy that we missed, and ammonia level was 28 with liver enzymes normal. Although she was in atrial fibrillation with RVR that was well controlled, diuresed adequately, treated for possible hypercapnia as the cause of her somnolence, she never really came back down to baseline. I spoke to [facility] again and explained the situation. Family still wanted evaluations done, to at least explain the cause of her change in status, since she had been relatively stable before admission. As such, she was transferred to [facility]. She would be accepted by the hospitalist and seen in consultation by Neurology. The family had already been in the process of getting this patient sent to live with family members in [place], [place]. A [id number]-jw-umn worked at an assisted living facility there, and the patient was to be transferred there. That plan would continue, once when she was discharged from [facility]. She is discharged in stable condition. PHYSICAL EXAMINATION VITAL SIGNS: Temperature of 36.1, pulse 93, respirations 30. On BiPAP. She is requiring 2 liters nasal oxygen. Blood pressure 104-128 systolic. Diastolic 56-78. GENERAL: Again, she is a lady who will occasionally open her eyes, look at you, but not be really responsive. NECK: Supple. LUNGS: Coarse tubular breath sounds, but no true crackles or rhonchi. No increased respiratory effort, occasionally she is tachypneic. She spends most of her day sleeping. She has an irregular rate and rhythm with a systolic murmur. ABDOMEN: Obese, soft, nontender at 5 feet 2 inches tall and 107 kg. Normal bowel sounds. EXTREMITIES: The legs are large and tree trunk, but no venous stasis, no skin breakdown. Patient requires nocturnal and daytime volume ventilation. Home BiPAP insufficient due to severity of condition, COPD, possible obesity hypoventilation syndrome is the primary cause of hypercapnia. I am ordering a home Trilogy device for home use, for when she leaves [facility]. Greater than 30 minutes was spent coordinating discharge. cc: Ada Kay MD TD: 11/02/2018 15:30 ADDENDUM/CORRECTION DISCHARGE DIAGNOSES &Final paragraph TD: 11/02/2018 15:38 DOUG
== END 2018-10-27 21:55 | disposition short-term general hospital (02) | DRG 884 ==
LOC: EDUNIT# → ED 18:50 → ICU 20:56
PROVIDERS: ADMIT Internal Medicine; ATTEND Specialist
DX: F06.1 Catatonic disorder due to known physiological condition (principal); R41.82 Altered mental status, unspecified; J96.22 Acute and chronic respiratory failure with hypercapnia; I50.9 Heart failure, unspecified; E78.00 Pure hypercholesterolemia, unspecified; G93.41 Metabolic encephalopathy; I50.33 Acute on chronic diastolic (congestive) heart failure; E66.2 Morbid (severe) obesity with alveolar hypoventilation; Z68.41 Body mass index [BMI] 40.0-44.9, adult; J98.11 Atelectasis; G40.409 Other generalized epilepsy and epileptic syndromes, not intractable, without status epilepticus; D32.0 Benign neoplasm of cerebral meninges; I08.1 Rheumatic disorders of both mitral and tricuspid valves; I11.0 Hypertensive heart disease with heart failure; I48.91 Unspecified atrial fibrillation; E03.9 Hypothyroidism, unspecified; J44.9 Chronic obstructive pulmonary disease, unspecified; B37.2 Candidiasis of skin and nail; D64.9 Anemia, unspecified; I25.10 Atherosclerotic heart disease of native coronary artery without angina pectoris; E78.5 Hyperlipidemia, unspecified; I27.20 Pulmonary hypertension, unspecified; I73.9 Peripheral vascular disease, unspecified; R90.82 White matter disease, unspecified; I65.29 Occlusion and stenosis of unspecified carotid artery; R32 Unspecified urinary incontinence; G89.29 Other chronic pain; M54.9 Dorsalgia, unspecified; M19.90 Unspecified osteoarthritis, unspecified site; Z74.09 Other reduced mobility; Z66 Do not resuscitate; Z96.649 Presence of unspecified artificial hip joint; Z99.81 Dependence on supplemental oxygen; Z79.51 Long term (current) use of inhaled steroids; Z79.01 Long term (current) use of anticoagulants; Z79.899 Other long term (current) drug therapy; I25.2 Old myocardial infarction; Z86.73 Personal history of transient ischemic attack (TIA), and cerebral infarction without residual deficits; Z86.718 Personal history of other venous thrombosis and embolism; Z87.891 Personal history of nicotine dependence
CPT/HCPCS: 36415; 36600; 51701; 70450; 70553; 71045; 80048; 80053; 81003; 82140; 82310; 82330; 82607; 82746; 82803; 83540; 83690; 83735; 83880; 84100; 84132; 84439; 84443; 84466; 84484; 85025; 85610; 87150; 93005; 93306; 94640; 94660; 96365; 96375; 99285; A6250; A9270; A9585; 81001; 82272; 87086